=== PATIENT | female | born 1990 | race Caucasian/White ===

== ENCOUNTER 2016-11-15 23:33 | Observation (INO) | payer MEDICAID ==
[~2016-11-15] VITALS: Ht 170.2 cm; Wt 66.0 kg
[~2016-11-15 23:33] MED LIST: MACR100C PO; METO10TA PO; Z.0.NO CURRENT MEDS
[2016-11-15 23:42] VITALS: BP 104/77; PULSE 101; RESP 18; TEMP 98.3; O2SAT 98
[2016-11-16] VITALS (7 sets, daily range): BP systolic 106–120; BP diastolic 61–76; PULSE 79–101; RESP 16–18; TEMP 97.6–98.3; O2SAT 96–99
[2016-11-16] MEDS ORDERED: HYDROmorphone HCL PF 1 MG/ML VIAL IVP ONE (00:45)
[2016-11-16] MEDS ORDERED: ONDANSETRON HCL 4 MG/2 ML VIAL IV ONE ×2 (00:45→01:45)
[2016-11-16] MEDS: SODIUM CHLOR 0.9% 1000 ML INJ 1,000 ML IV SCH ×2 (00:51→01:26)
[2016-11-16] MEDS ORDERED: SODIUM CHLOR 0.9% 1000 ML INJ 1,000 ML IV SCH ×2 (00:58→04:00)
--- NOTE | 2016-11-16 00:58 | PD ---
HPI Chief Complaint: Abdominal Pain Time Seen by Provider: 00:41 Travel History International Travel<30 days: No Contact w/Intl Traveler<30days: No Traveled to known affect area: No History of Present Illness HPI The patient is a 26-year-old female that complains of primarily midline epigastric and some periumbilical pain beginning 48 hours ago. About 24 hours ago she began having diarrhea and vomiting. She denies any fever at home. There's been no blood in the vomitus or stool. She states there is no possibility of . She states her son has developed a similar illness about 3 days ago. She denies any recent foreign travel, well water ingestion, history of bowel problems, recent antibiotics or history of regional enteritis/ ulcer colitis and they family members. She does feel dehydrated. PFSH Past Medical History Diminished Hearing: No Integumentary: Yes (STAPH INFECTION 2003) Seizures: Yes ("ONCE") Tetanus Vaccination: Unknown Influenza Vaccination: No ?: Not LMP: 11/02/16 : 0 Past Surgical History Section: Yes Social History Alcohol Use: Yes (OCCASIONAL) Tobacco Use: Yes (1 PPD) Substance Use: Yes (PT ADMITS TO MARIJUANA) Allergies-Medications (Allergen,Severity, Reaction): Coded Allergies: No Known Allergies (Verified , 11/16/16) Reported Meds & Prescriptions Reported Meds & Active Scripts Active No Active Prescriptions or Reported Medications Review of Systems Except as stated in HPI: all other systems reviewed are Neg Physical Exam Narrative GENERAL: The patient is alert, oriented 3, moderately dehydrated appearing in moderate apparent distress with her nausea/vomiting. The patient's vital signs show heart rate of 101 but are otherwise normal. SKIN: Warm and dry. No skin rash is seen. HEAD: Atraumatic. Normocephalic. EYES: Pupils equal and round. No scleral icterus. No injection or drainage. ENT: No nasal bleeding or discharge. Mucous membranes pink and moist. NECK: Trachea midline. No JVD. CARDIOVASCULAR: Regular rate and rhythm. No murmur appreciated. RESPIRATORY: No accessory muscle use. Clear to auscultation. Breath sounds equal bilaterally. GASTROINTESTINAL: Abdomen soft, with tenderness to direct palpation in the bilateral upper quadrants and periumbilical area, nondistended. Hepatic and splenic margins not palpable. MUSCULOSKELETAL: No obvious deformities. No clubbing. No cyanosis. No edema. NEUROLOGICAL: Awake and alert. No obvious cranial nerve deficits. Motor grossly within normal limits. Normal speech. PSYCHIATRIC: Appropriate mood and affect; insight and judgment normal. Data Data Last Documented VS Vital Signs Date Time Temp Pulse Resp B/P Pulse Ox O2 Delivery O2 Flow Rate FiO2 11/16/16 02:10 85 18 106/62 98 Room Air 11/16/16 00:28 98.3 Orders Sodium Chlor 0.9% 1000 Ml Inj (Ns 1000 M (11/16/16 00:45) Ondansetron Inj (Zofran Inj) (11/16/16 00:45) Hydromorphone Pf Inj (Dilaudid Pf Inj) (11/16/16 00:45) Beta Hcg (Quant/Titer) (11/16/16 00:58) Complete Blood Count With Diff (11/16/16 00:58) Comprehensive Metabolic Panel (11/16/16 00:58) Lipase (11/16/16 00:58) Urinalysis - C+S If Indicated (11/16/16 00:58) Sodium Chlor 0.9% 1000 Ml Inj (Ns 1000 M (11/16/16 00:58) Ondansetron Inj (Zofran Inj) (11/16/16 01:45) Metoclopramide Inj (Reglan Inj) (11/16/16 03:00) Admit Order (Ed Use Only) (11/16/16 03:28) Labs Laboratory Tests Test 11/16/16 00:45 White Blood Count 9.9 TH/MM3 Red Blood Count 5.42 MIL/MM3 Hemoglobin 16.8 GM/DL Hematocrit 51.0 % Mean Corpuscular Volume 94.2 FL Mean Corpuscular Hemoglobin 31.0 PG Mean Corpuscular Hemoglobin 32.9 % Concent Red Cell Distribution Width 13.2 % Platelet Count 209 TH/MM3 Mean Platelet Volume 9.3 FL Neutrophils (%) (Auto) 86.7 % Lymphocytes (%) (Auto) 5.8 % Monocytes (%) (Auto) 5.7 % Eosinophils (%) (Auto) 0.9 % Basophils (%) (Auto) 0.9 % Neutrophils # (Auto) 8.5 TH/MM3 Lymphocytes # (Auto) 0.6 TH/MM3 Monocytes # (Auto) 0.6 TH/MM3 Eosinophils # (Auto) 0.1 TH/MM3 Basophils # (Auto) 0.1 TH/MM3 CBC Comment DIFF FINAL Differential Comment Sodium Level 143 MEQ/L Potassium Level 3.8 MEQ/L Chloride Level 108 MEQ/L Carbon Dioxide Level 26.0 MEQ/L Anion Gap 9 MEQ/L Blood Urea Nitrogen 15 MG/DL Creatinine 1.00 MG/DL Estimat Glomerular Filtration 67 ML/MIN Rate Random Glucose 150 MG/DL Calcium Level 9.8 MG/DL Total Bilirubin 0.9 MG/DL Aspartate Amino Transf 15 U/L (AST/SGOT) Alanine Aminotransferase 24 U/L (ALT/SGPT) Alkaline Phosphatase 64 U/L Total Protein 8.3 GM/DL Albumin 4.6 GM/DL Lipase 1171 U/L Human Chorionic Gonadotropin, LESS THAN 1 Quant MIU/ML MDM Medical Decision Making Medical Screen Exam Complete: Yes Emergency Medical Condition: Yes Medical Record Reviewed: Yes Interpretation(s) The CBC shows a hemoglobin of 16.8 and hematocrit of 51.0 with 87% neutrophils. The CBC is otherwise unremarkable. The complete metabolic profile shows a GFR 67, glucose 150, total protein of 8.3. The beta-hCG is less than 2 and the lipase is 1171. Differential Diagnosis Viral gastroenteritis, pancreatitisviral versus alcohol versus gallstone, dehydration, electrolyte disorder, renal insufficiency Narrative Course The patient has pancreatitis. This could be alcohol versus viral versus medication versus gallstone. She continues to vomit despite 8 mg of Zofran IV and, finally after 10 of Reglan IV, she stopped. After 3 L of IV fluid, the patient still has difficulty making urine. She does have hemoconcentration on the CBC with elevated hemoglobin of 16.8 and hematocrit of 51.0. Plan: The patient will be admitted for IV fluids, IV antiemetics and workup for the pancreatitis. Physician Communication Physician Communication I discussed the patient with Dr. Canas, the patient will be 23 hour observation to her. Diagnosis Primary Impression: Pancreatitis Additional Impression: Moderate dehydration Admitting Information Admitting Physician Requests: Observation Scripts No Active Prescriptions or Reported Meds Reginaldo Osborn MD Nov 16, 2016 00:58
[2016-11-16 01:11] LABS: AUTOMATED NEUTROPHIL # 8.5 TH/MM3 (1.8-7.7); BASOPHIL # 0.1 TH/MM3 (0-0.2); BASOPHIL % 0.9 % (0.0-2.0); EOSINOPHIL # 0.1 TH/MM3 (0-0.4); EOSINOPHIL % 0.9 % (0.0-4.0); HEMO FLAGS DIFF FINAL; LYMPH % 5.8 % (9.0-44.0); LYMPHOCYTE # 0.6 TH/MM3 (1.0-4.8); MEAN CELL VOLUME 94.2 FL (80.0-100.0); MEAN CORPUSCULAR HGB CONC 32.9 % (32.0-36.0); MONO % 5.7 % (0.0-8.0); NEUT % 86.7 % (16.0-70.0); PLATELET COUNT 209 TH/MM3 (150-450); RED BLOOD COUNT 5.42 MIL/MM3 (4.00-5.30); RED CELL DISTRIBUTION WIDTH 13.2 % (11.6-17.2); WHITE BLOOD COUNT 9.9 TH/MM3 (4.0-11.0)
[2016-11-16 01:23] LABS: CHLORIDE 108 MEQ/L (98-107); POTASSIUM 3.8 MEQ/L (3.5-5.1); SODIUM (NA) 143 MEQ/L (136-145)
[2016-11-16 01:27] LABS: ANION GAP 9 MEQ/L (5-15); BLOOD UREA NITROGEN 15 MG/DL (7-18)
[2016-11-16 01:29] LABS: ALT (GPT) 24 U/L (10-53)
[2016-11-16 01:30] LABS: AST (GOT) 15 U/L (15-37); GLOMERULAR FILTRATION RATE 67 ML/MIN (>89)
[2016-11-16 01:31] LABS: TOTAL BILIRUBIN ADULT 0.9 MG/DL (0.2-1.0)
[2016-11-16 01:32] LABS: ALKALINE PHOSPHATASE 64 U/L (45-117)
[2016-11-16 01:35] LABS: BETA HCG QUANT LESS THAN 1 MIU/ML (0-5)
[2016-11-16] MEDS ORDERED: METOCLOPRAMIDE HCL 10 MG/2 ML VIAL IVS ONE (03:00)
[2016-11-16 03:46] LABS: BLOOD, URINE NEG (NEG); GLUCOSE,URINE NEG (NEG); KETONE, URINE TRACE mg/dL (NEG); NITRITE,URINE NEG (NEG); PH, URINE 5.5 (5.0-8.5)
[2016-11-16] MEDS ORDERED: NALOXONE HCL 0.4 MG/ML AMP IV PRN (04:00)
[2016-11-16] MEDS ORDERED: SODIUM CHLORIDE 0.9% FLUSH 5 ML FLUSH FLUSH PRN (04:00)
[2016-11-16] MEDS ORDERED: ONDANSETRON HCL 4 MG/2 ML VIAL IVP PRN (04:00)
[2016-11-16 04:06] LABS: URINE COLOR YELLOW (YELLW/STRAW)
[2016-11-16 04:07] LABS: MUCUS URINE MOD /lpf (OCC); SQUAMOUS EPITHELIAL CELL URINE > 8 /hpf (0-5)
[2016-11-16 04:08] LABS: BACTERIA, URINE OCC /hpf; COMMENT (UR) CULT NOT INDICATED; CULTURE IF INDICATED CULT NOT INDICATED
[2016-11-16] MEDS ORDERED: HYDROmorphone HCL PF 1 MG/ML VIAL IV PUSH PRN (04:15)
[2016-11-16] MEDS ORDERED: METOCLOPRAMIDE HCL 10 MG/2 ML VIAL IV PUSH PRN (09:00)
[2016-11-16] MEDS ORDERED: SODIUM CHLORIDE 0.9% FLUSH 5 ML FLUSH FLUSH SCH (09:00)
--- NOTE | 2016-11-16 10:01 | HHI.HP ---
[facility] No Primary Care Physician Admission Diagnosis pancreatitis Diagnoses: (1) Nausea & vomiting Diagnosis: Principal (2) Gastroenteritis Diagnosis: Principal (3) Elevated lipase Diagnosis: Principal Chief Complaint: Nausea, vomiting, diarrhea Travel History International Travel<30 Days: No Contact w/Intl Traveler <30 Da: No Traveled to Known Affected Are: No History of Present Illness 26-year-old female with no significant chronic medical illnesses who presented to hospital because of a few hours of nausea, vomiting, diarrhea. Patient states that her son had the same symptoms 2 days prior. She thought that she just caught a bug because 2 days later she developed nausea, vomiting, diarrhea. He states that her symptoms started at approximate 8 PM last night and she had intractable nausea vomiting. She was able tolerate liquids and Gatorade. He states that she did develop a generalized abdominal pain. States it is located around her umbilicus and moved up into her epigastric region the more she had nausea vomiting. Patient denies any hematemesis, hematochezia, coffee-ground emesis. She states that she did have watery stools. Patient had workup done emergency department found to have mild dehydration, elevated lipase level. Is recommended by ER physician that patient be observed in the hospital for further evaluation and management. Upon evaluating the patient this morning she is feeling much better. She is tolerating liquids. She is asking if she can go home. Review of Systems Constitutional: DENIES: Diaphoretic episodes, Fatigue, Fever, Weight gain, Weight loss, Chills, Dizziness, Change in appetite, Night Sweats Eyes: DENIES: Blurred vision, Diplopia, Eye inflammation, Eye pain, Vision loss , Double Vision Ears, nose, mouth, throat: DENIES: Vertigo, Nasal discharge, Throat pain, Ear Pain, Running Nose, Sinus Pain Respiratory: DENIES: Apneas, Cough, Snoring, Wheezing, Hemoptysis, Sputum production, Shortness of breath Cardiovascular: DENIES: Chest pain, Palpitations, Syncope, Dyspnea on Exertion , Lower Extremity Edema, Orthopnea Gastrointestinal: COMPLAINS OF: Abdominal pain, Diarrhea, Nausea, DENIES: Black stools, Bloody stools, Constipation, Vomiting, Difficulty Swallowing, Anorexia Neurologic: DENIES: Abnormal gait, Headache, Localized weakness, Paresthesias, Seizures, Speech Problems, Tremor, Poor Balance Psychiatric: COMPLAINS OF: Anxiety, DENIES: Confusion, Mood changes, Depression Past Family Social History Past Medical History Anxiety Past Surgical History Reported Medications Patient indicates that she is supposed be on: Doxycycline for acne Xanax for anxiety Remeron for anxiety Allergies: Coded Allergies: No Known Allergies (Verified , 11/16/16) Family History Reviewed is significant for both sister and mother having glioblastoma Social History Patient does smoke one pack a cigarettes a day, drinks alcohol occasionally. Smokes marijuana weekly. Physical Exam Vital Signs Vital Signs Date Time Temp Pulse Resp B/P Pulse Ox O2 Delivery O2 Flow Rate FiO2 11/16/16 08:00 97.8 82 18 120/70 99 11/16/16 07:30 84 16 119/61 96 Room Air 11/16/16 06:08 80 18 108/64 98 Room Air 11/16/16 03:58 80 18 106/66 98 Room Air 11/16/16 02:10 85 18 106/62 98 Room Air 11/16/16 00:31 18 11/16/16 00:28 98.3 101 18 106/76 98 11/15/16 23:42 98.3 101 18 104/77 98 Room Air Physical Exam GENERAL: Well-developed, well-nourished, in no acute distress. alert and orientated HEENT: Head is normocephalic without any lesions or masses noted. Facial features are symmetric. Eyes: Pupils equal round reactive to light. Extraocular muscles are intact. Conjunctivae were clear. Oropharyngeal: Pharynx without any erythema edema. Tongue is midline without deviation. Buccal mucosa is moist without any masses or lesions NECK: Supple without any masses. Trachea midline no deviation. No JVD, no bruits are appreciated CARDIAC: Regular rhythm, regular rate. S1/S2 are heard. No murmurs gallops or rubs. LUNGS: Clear to auscultation bilaterally. No wheeze, rhonchi or rales. No use of accessory muscles on inspiration or expiration. ABDOMEN: Soft, nontender. Nondistended. Bowel sounds heard in all 4 quadrants. No organomegaly or masses. Negative rebound, negative guarding EXTREMITIES: No edema, pulses are equal bilaterally. No cyanosis or clubbing NEUROLOGY: Mood and affect appear appropriate. Cranial nerves II through XII grossly intact. Muscle strength 5/5 in upper and lower extremities bilaterally. Deep tendon reflexes are 2+ in upper and lower extremities bilaterally. Laboratory Laboratory Tests Test 11/16/16 11/16/16 00:45 03:40 White Blood Count 9.9 Red Blood Count 5.42 Hemoglobin 16.8 Hematocrit 51.0 Mean Corpuscular Volume 94.2 Mean Corpuscular Hemoglobin 31.0 Mean Corpuscular Hemoglobin 32.9 Concent Red Cell Distribution Width 13.2 Platelet Count 209 Mean Platelet Volume 9.3 Neutrophils (%) (Auto) 86.7 Lymphocytes (%) (Auto) 5.8 Monocytes (%) (Auto) 5.7 Eosinophils (%) (Auto) 0.9 Basophils (%) (Auto) 0.9 Neutrophils # (Auto) 8.5 Lymphocytes # (Auto) 0.6 Monocytes # (Auto) 0.6 Eosinophils # (Auto) 0.1 Basophils # (Auto) 0.1 CBC Comment DIFF FINAL Differential Comment Sodium Level 143 Potassium Level 3.8 Chloride Level 108 Carbon Dioxide Level 26.0 Anion Gap 9 Blood Urea Nitrogen 15 Creatinine 1.00 Estimat Glomerular Filtration 67 Rate Random Glucose 150 Calcium Level 9.8 Total Bilirubin 0.9 Aspartate Amino Transf 15 (AST/SGOT) Alanine Aminotransferase 24 (ALT/SGPT) Alkaline Phosphatase 64 Total Protein 8.3 Albumin 4.6 Lipase 1171 Human Chorionic Gonadotropin, LESS THAN 1 Quant Urine Color YELLOW Urine Turbidity CLEAR Urine pH 5.5 Urine Specific High View 1.025 Urine Protein NEG Urine Glucose (UA) NEG Urine Ketones TRACE Urine Occult Blood NEG Urine Nitrite NEG Urine Bilirubin NEG Urine Leukocyte Esterase NEG Urine Squamous Epithelial > 8 Cells Urine Amorphous Sediment SMALL Urine Bacteria OCC Urine Mucus MOD Microscopic Urinalysis Comment CULT NOT INDICATED Result Diagram: 11/16/165 11/16/1644 Assessment and Plan Assessment and Plan Nausea, vomiting, diarrhea with dehydration and elevated lipase Continue IV fluids Monitor lipase level Monitor by mouth intake Check triglyceride level DVT prevention Sequential compression devices Written by Calderon Osborn PA-C, acting as scribe for Dr. Lynch on 11/16/16 at 1055. The documentation accurately reflects the work and decisions performed face-to- face by Dr. Lynch on 11/16/16 at 1055. Discharge disposition Discharge home in stable condition Activity: Ad ángel. Diet: Regular diet Medications per medication reconciliation Follow-up with primary medical doctor in one week Problem Qualifiers (1) Nausea & vomiting: Qualified Code: R11.2 - Nausea and vomiting, intractability of vomiting not specified, unspecified vomiting type Calderon Osborn Nov 16, 2016 10:01
[2016-11-16] MEDS ORDERED: ONDA4TAB7 SL (10:02)
--- NOTE | 2016-11-16 10:03 | HHI.DCPOC ---
Discharge Care Plan Diagnosis: (1) Nausea & vomiting (2) Gastroenteritis (3) Elevated lipase Goals to Promote Your Health * To prevent worsening of your condition and complications * To maintain your health at the optimal level Directions to Meet Your Goals Take your medications as prescribed Follow your dietary instruction Follow activity as directed Keep your appointments as scheduled Take your immunizations and boosters as scheduled If your symptoms worsen call your PCP, if no PCP go to Urgent Care Center or Emergency Room Smoking is Dangerous to Your Health. Avoid second hand smoke Call the 24-hour hour crisis hotline for domestic abuse at Calderon Osborn Nov 16, 2016 10:03
[2016-11-16] MEDS ORDERED: METO5TAB PO (11:07)
[2016-11-16] MEDS ORDERED: HYDR-4107 PO (11:09)
== END 2016-11-16 14:17 | disposition home or self-care (01) ==
LOC: PHED 23:33 → PHEDA 11-16 03:30 → PH3B 11-16 07:40
PROVIDERS: ADMIT Family Medicine; ATTEND Family Medicine
DX: K52.9 Noninfective gastroenteritis and colitis, unspecified (principal); E86.0 Dehydration; R74.8 Abnormal levels of other serum enzymes; R11.2 Nausea with vomiting, unspecified; F17.200 Nicotine dependence, unspecified, uncomplicated
CPT/HCPCS: 80053; 81001; 83690; 84478; 84702; 85025; 96361; 96374; 96375; 96376; 99284; G0378; J1170; J2405; J2765; J7030

== ENCOUNTER 2017-01-12 10:30 | Emergency (ER) | payer MEDICAID ==
[~2017-01-12] VITALS: Ht 170.2 cm; Wt 68.5 kg
[~2017-01-12 10:30] MED LIST changes: +HYDR-4107 PO; -MACR100C PO; -METO10TA PO; +METO5TAB PO; -Z.0.NO CURRENT MEDS
[2017-01-12 10:34] VITALS: BP 122/76; PULSE 67; RESP 18; TEMP 98.2; O2SAT 99
--- NOTE | 2017-01-12 10:51 | PD ---
HPI Chief Complaint: Musculoskeletal Complaint Time Seen by Provider: 10:45 Travel History International Travel<30 days: No Contact w/Intl Traveler<30days: No Traveled to known affect area: No History of Present Illness HPI 26-year-old female with history of sugar with dislocation, presents to the ER today because she states that she was trying to avoid tripping on the dog and fell hitting the posterior part of her right shoulder, thinks that she may have dislocated last night, but tried to lift her arm overhead and thinks it popped back in. However, she is still continuing to have pain and feels a crunching in the right shoulder whenever she tries to lift up her arm. She states that the pain is a 4 out of 10 and makes her nauseous and tearful when she tries to move. She denies any other injuries, head injury, loss of consciousness, or any other issues. Modifying Factors: None Associated Signs & Symptoms: Right shoulder injury Risk Factors: None PFSH Past Medical History Anxiety: Yes Cardiovascular Problems: No Diminished Hearing: No Endocrine: No Genitourinary: No Musculoskeletal: No Neurologic: No Reproductive: No Respiratory: No Integumentary: Yes (STAPH INFECTION 2004) Seizures: Yes ("ONCE") ?: Not LMP: LAST WEEK : 0 Past Surgical History Section: Yes Gynecologic Surgery: Yes (C SECTION ) Oral Surgery: Yes (WISDOM TEETH ) Social History Alcohol Use: Yes (OCCASIONAL) Tobacco Use: Yes (1 PPD) Substance Use: Yes (MARIJUANA ) Allergies-Medications (Allergen,Severity, Reaction): Coded Allergies: No Known Allergies (Verified , 01/12/17) Reported Meds & Prescriptions Reported Meds & Active Scripts Active Review of Systems Except as stated in HPI: all other systems reviewed are Neg Physical Exam Narrative GENERAL: Well-nourished, well-developed young white female patient in no acute distress at rest. She is awake, alert, oriented 3. Wearing a right arm sling. SKIN: Focused skin assessment warm/dry. HEAD: Normocephalic. EYES: No scleral icterus. No injection or drainage. NECK: Supple, trachea midline. CARDIOVASCULAR: Regular rate and rhythm without murmurs, gallops, or rubs. RESPIRATORY: Breath sounds equal bilaterally. No accessory muscle use. GASTROINTESTINAL: Abdomen soft, non-tender, nondistended. MUSCULOSKELETAL: No cyanosis, or edema. BACK: Nontender without obvious deformity. No CVA tenderness. Right upper extremity: She is tender to palpation in the right upper humerus area with no obvious deformities. Tenderness with lifting up the right arm and abducting. Neurovascularly intact below injury. Data Data Last Documented VS Vital Signs Date Time Temp Pulse Resp B/P Pulse Ox O2 Delivery O2 Flow Rate FiO2 01/12/17 10:34 98.2 67 18 122/76 99 Orders Shoulder, Complete (>2vws) (01/12/17 10:45) [facility] Medical Decision Making Medical Screen Exam Complete: Yes Emergency Medical Condition: Yes Medical Record Reviewed: Yes Interpretation(s) Last 24 hours Impressions Shoulder X-Ray 01/12/17 1045 Signed Impressions: Service Date/Time: , January 12, 2017 10:53 - CONCLUSION: Unremarkable examination of the right shoulder except suspected old Hill-Sachs fracture. Singh Polk MD Differential Diagnosis Right shoulder injurydislocations versus fractures versus strain versus rotator cuff injury Narrative Course X-rays did not reveal any signs of acute fractures or dislocations. Patient does have an old Hill-Sachs fracture which could be predisposing her for dislocations. At this point, my plan would be to keep her in the arm sling and have her follow-up with orthopedics. Return for any worsening in pain or new symptoms as needed. The plan has discussed with her and she states understanding. Diagnosis Primary Impression: Right shoulder injury Referrals: Terry Chauhan MD Med/Other Pt SpecificInfo: Prescription(s) given Scripts Tramadol-Acetaminophen 37.5-325 mg Tab1 Tab PO Q4H PRN (PAIN GREATER THAN 6) # 15 TAB Ref 0 Prov:Sindy Linton MD 01/12/17 Ibuprofen (Motrin Ib)200 Mg [id number] Mg PO Q6H #28 TAB Ref 0 Prov:Sindy Linton MD 01/12/17 Disposition: 01 DISCHARGE HOME Condition: Stable Sindy Linton MD Jan 12, 2017 10:51
--- NOTE | 2017-01-12 11:26 | RADHPO ---
EXAM DATE/TIME: 01/12/2017 10:53 [facility] COMPARISON: No previous studies available for comparison. INDICATIONS : Right shoulder pain; fell lastnight. Pain with abduction and previous dislocations. MEDICAL HISTORY : None. SURGICAL HISTORY : None. ENCOUNTER: Initial ACUITY: 1 day PAIN SCORE: 4/10 LOCATION: Right shoulder FINDINGS: Multiple view examination of the right shoulder demonstrates no evidence of acute fracture or disloca tion. Flattening of the posterior-superior humeral head likely old Hill-Sachs fracture. Slight wideni ng of the acromioclavicular joint. The glenohumeral and acromioclavicular joints are maintained. The re is normal range of motion between internal and external rotation. Bony mineralization is normal. CONCLUSION: Unremarkable examination of the right shoulder except suspected old Hill-Sachs fracture. Singh Polk MD on January 12, 2017 at 11:24 Board Certified Radiologist. This report was verified electronically.
[2017-01-12] MEDS ORDERED: TRAM-388 PO (11:40)
[2017-01-12] MEDS ORDERED: MOTR200T4 PO (11:40)
== END 2017-01-12 11:54 | disposition home or self-care (01) ==
LOC: PHED 10:30
DX: F17.210 Nicotine dependence, cigarettes, uncomplicated (principal); F12.10 Cannabis abuse, uncomplicated
CPT/HCPCS: 73030; 99283

== ENCOUNTER 2017-02-05 07:07 | Emergency (ER) | payer MEDICAID ==
[~2017-02-05] VITALS: Ht 172.7 cm; Wt 67.0 kg
[~2017-02-05 07:07] MED LIST changes: -HYDR-4107 PO; -METO5TAB PO; +MOTR200T4 PO; +TRAM-388 PO
[2017-02-05 07:08] VITALS: BP 126/84; PULSE 91; RESP 32; TEMP 97.8; O2SAT 100
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
[2017-02-05] MEDS ORDERED: LORazepam 2 MG/ML VIAL IV ONE (07:30)
[2017-02-05] MEDS ORDERED: SODIUM CHLORIDE 0.9% FLUSH 10 ML FLUSH IVF PRN (07:30)
[2017-02-05 07:33] LABS: AUTOMATED NEUTROPHIL # 2.5 TH/MM3 (1.8-7.7); BASOPHIL % 0.9 % (0.0-2.0); EOSINOPHIL # 0.1 TH/MM3 (0-0.4); EOSINOPHIL % 1.2 % (0.0-4.0); HEMATOCRIT 41.7 % (35.0-46.0); HEMO FLAGS DIFF FINAL; LYMPH % 39.5 % (9.0-44.0); MEAN CELL VOLUME 93.7 FL (80.0-100.0); MEAN CORPUSCULAR HEMOGLOBIN 32.5 PG (27.0-34.0); MEAN CORPUSCULAR HGB CONC 34.7 % (32.0-36.0); MONO % 8.1 % (0.0-8.0); NEUT % 50.3 % (16.0-70.0); PLATELET COUNT 196 TH/MM3 (150-450); RED BLOOD COUNT 4.45 MIL/MM3 (4.00-5.30); RED CELL DISTRIBUTION WIDTH 12.8 % (11.6-17.2)
[2017-02-05 07:36] VITALS: BP 128/84; PULSE 77; RESP 24; O2SAT 98
[2017-02-05 07:40] LABS: CHLORIDE 108 MEQ/L (98-107); POTASSIUM 3.4 MEQ/L (3.5-5.1); SODIUM (NA) 140 MEQ/L (136-145)
[2017-02-05 07:44] LABS: ANION GAP 11 MEQ/L (5-15); BICARBONATE 21.2 MEQ/L (21.0-32.0); BLOOD UREA NITROGEN 14 MG/DL (7-18)
[2017-02-05 07:47] LABS: ALT (GPT) 33 U/L (10-53); AST (GOT) 20 U/L (15-37); GLOMERULAR FILTRATION RATE 71 ML/MIN (>89)
[2017-02-05 07:50] LABS: ALKALINE PHOSPHATASE 61 U/L (45-117)
[2017-02-05 08:21] LABS: BARBITURATES, URINE NEG (NEG); COCAINE, URINE NEG (NEG)
[2017-02-05 08:22] LABS: AMPHETAMINE, URINE POS (NEG)
[2017-02-05] MEDS ORDERED: POTASSIUM CHLORIDE 10 MEQ CONTROLLED RELEASE TAB PO ONE (08:45)
[2017-02-05] MEDS ORDERED: LORazepam 2 MG/ML VIAL IM ONE (08:45)
[2017-02-05 09:40] VITALS: BP 132/74; PULSE 71; RESP 20; TEMP 98.5; O2SAT 98
== END 2017-02-05 09:22 | disposition home or self-care (01) ==
LOC: PHED 07:07 → NEPJ 09:22
DX: F41.9 Anxiety disorder, unspecified (principal); F32.9 Major depressive disorder, single episode, unspecified
CPT/HCPCS: 80053; 84703; 85025; 96372; 96374; 99283; J2060; 80307; 99281

== ENCOUNTER 2017-02-22 22:10 | Emergency (ER) | payer MEDICAID ==
[~2017-02-22] VITALS: Ht 170.2 cm; Wt 68.2 kg
[2017-02-22 22:24] VITALS: BP 113/75; PULSE 67; RESP 18; TEMP 97.6; O2SAT 100
[2017-02-22 23:13] LABS: BLOOD, URINE NEG (NEG); GLUCOSE,URINE NEG (NEG); KETONE, URINE NEG (NEG); NITRITE,URINE NEG (NEG); PH, URINE 5.5 (5.0-8.5)
[2017-02-22 23:22] LABS: BACTERIA, URINE FEW /hpf; RBC, URINE 0-2 /hpf (0-3); URINE COLOR YELLOW (YELLW/STRAW)
[2017-02-22 23:23] LABS: COMMENT (UR) CULT NOT INDICATED; CULTURE IF INDICATED CULT NOT INDICATED
[2017-02-22] MEDS ORDERED: DIFL150T PO (23:35)
--- NOTE | 2017-02-22 23:35 | PD ---
HPI Chief Complaint: Maintenance Clerk Problem/Complaint Time Seen by Provider: 22:40 Travel History International Travel<30 days: No Contact w/Intl Traveler<30days: No Traveled to known affect area: No History of Present Illness HPI Patient is a 26-year-old female who comes in complaining of vaginal discharge and itching. She says it started an hour prior to arrival. She says she thinks she has a yeast infection, but she was looking up online and was nervous it might be something else. She denies any abdominal pain. She denies any dysuria. She denies any nausea or vomiting. PFSH Past Medical History Anxiety: Yes Cardiovascular Problems: No Diminished Hearing: No Endocrine: No Genitourinary: No Implanted Vascular Access Dvce: No Musculoskeletal: No Neurologic: No Reproductive: No Respiratory: No Integumentary: Yes (STAPH INFECTION 2003) Seizures: Yes ("ONCE") Tetanus Vaccination: Unknown Influenza Vaccination: No ?: Not LMP: firs week of January : 0 Past Surgical History Section: Yes Gynecologic Surgery: Yes (C SECTION ) Oral Surgery: Yes (WISDOM TEETH ) Other Surgery: Yes Social History Alcohol Use: Yes (OCCASIONAL) Tobacco Use: Yes (1 ppd) Substance Use: Yes Allergies-Medications (Allergen,Severity, Reaction): Coded Allergies: Phenergan (Verified Allergy, Intermediate, HALUCINATIONS, 02/22/17) Reported Meds & Prescriptions Reported Meds & Active Scripts Active No Active Prescriptions or Reported Medications Review of Systems Except as stated in HPI: all other systems reviewed are Neg General / Constitutional: No: Fever, Chills HENT: No: Headaches, Lightheadedness Cardiovascular: No: Chest Pain or Discomfort Respiratory: No: Shortness of Breath Gastrointestinal: No: Nausea, Vomiting, Abdominal Pain Genitourinary: Positive: Discharge, No: Dysuria Skin: No Rash, No Change in Pigmentation Neurologic: No: Weakness, Dizziness Physical Exam Narrative GENERAL: Awake and alert, in no acute distress. SKIN: Focused skin assessment warm/dry. HEAD: Atraumatic. Normocephalic. EYES: Pupils equal and round. No scleral icterus. ENT: Mucous membranes pink and moist. NECK: Trachea midline. No JVD. CARDIOVASCULAR: Regular rate and rhythm. No murmur appreciated. RESPIRATORY: No accessory muscle use. Clear to auscultation. Breath sounds equal bilaterally. GASTROINTESTINAL: Abdomen soft, non-tender, nondistended. : Performed in the presence of a female nurse. Thick white discharge. No cervical lesions. No CMT. MUSCULOSKELETAL: No obvious deformities. No clubbing. No cyanosis. No edema. NEUROLOGICAL: Awake and alert. No obvious cranial nerve deficits. Motor grossly within normal limits. Normal speech. PSYCHIATRIC: Appropriate mood and affect; insight and judgment normal. Data Data Last Documented VS Vital Signs Date Time Temp Pulse Resp B/P Pulse Ox O2 Delivery O2 Flow Rate FiO2 02/22/17 22:24 97.6 67 18 113/75 100 Orders Urinalysis - C+S If Indicated (02/22/17 22:46) Ed Urine Pregnancytest Poc (02/22/17 22:46) Wet Prep Profile (02/22/17 22:46) Gc And Chlamydia Pcr (02/22/17 22:46) Labs Laboratory Tests Test 02/22/17 22:58 Urine Color YELLOW Urine Turbidity SLIGHT Urine pH 5.5 Urine Specific [place] 1.021 Urine Protein NEG mg/dL Urine Glucose (UA) NEG mg/dL Urine Ketones NEG mg/dL Urine Occult Blood NEG Urine Nitrite NEG Urine Bilirubin NEG Urine Leukocyte Esterase NEG Urine RBC 0-2 /hpf Urine WBC 3-5 /hpf Urine Squamous Epithelial 6-8 /hpf Cells Urine Bacteria FEW /hpf Urine Yeast (Budding) MOD Microscopic Urinalysis Comment CULT NOT INDICATED Clue Cells (Wet Prep) NONE SEEN Vaginal Trichomonas (Wet Prep) NONE SEEN Vaginal Yeast (Wet Prep) PRESENT MDM Medical Decision Making Medical Screen Exam Complete: Yes Emergency Medical Condition: Yes Medical Record Reviewed: Yes Differential Diagnosis BV versus yeast vaginitis versus GC/chlamydia versus UTI Narrative Course Patient is a 26-year-old female comes in complaining of white vaginal discharge and itching. Exam shows a sick white discharge. Wet prep sent is positive for yeast. GC and chlamydia swab sent. Patient states her partner does not have any symptoms. Given a prescription for Diflucan. Advised follow-up with PRODUCT PROMOTER SALES PERSON. Advised to return to the ED as needed for any worsening symptoms. Diagnosis Primary Impression: Yeast vaginitis Patient Instructions: General Instructions, Vulvovaginal Candidiasis (ED) Additional Instructions: Follow up with oxygen plant operator. Return to the ED as needed for any worsening symptoms. Scripts Fluconazole (Diflucan)150 Mg Pqi350 Mg PO ONCE #1 TAB Ref 0 Prov:Gershen,Emma B MD 02/22/17 Disposition: 01 DISCHARGE HOME Condition: Stable Emma Neri MD February 22, 2017 23:35
[2017-02-22 23:54] VITALS: BP 122/71
[2017-02-23 02:21] LABS: CHLAMYDIA PCR NOT DETECTED (NOT DETECT); NEISSERIA PCR NOT DETECTED (NOT DETECT)
== END 2017-02-22 23:59 | disposition home or self-care (01) ==
LOC: PHED 22:10
DX: B37.3 Candidiasis of vulva and vagina (principal); F41.9 Anxiety disorder, unspecified; F17.200 Nicotine dependence, unspecified, uncomplicated
CPT/HCPCS: 81001; 84703; 87210; 87491; 87591; 99283

== ENCOUNTER 2017-05-21 16:46 | Emergency (ER) | payer MEDICAID ==
[~2017-05-21] VITALS: Ht 170.2 cm; Wt 68.0 kg
[~2017-05-21 16:46] MED LIST changes: +DIFL150T PO; -MOTR200T4 PO; -TRAM-388 PO
[2017-05-21 16:58] VITALS: BP 121/78; PULSE 103; RESP 16; TEMP 98.4; O2SAT 100
[2017-05-21] MEDS ORDERED: CLIN1CAP6 PO (22:33)
[2017-05-21] MEDS ORDERED: IBUP800T23 PO (23:09)
== END 2017-05-21 19:43 | disposition left against medical advice (07) ==
LOC: PHED 16:46
DX: L02.413 Cutaneous abscess of right upper limb (principal); Z53.21 Procedure and treatment not carried out due to patient leaving prior to being seen by health care provider
CPT/HCPCS: 99281

== ENCOUNTER 2017-05-21 21:34 | Emergency (ER) | payer MEDICAID ==
[~2017-05-21] VITALS: Ht 170.2 cm; Wt 68.0 kg
[2017-05-21 21:53] VITALS: BP 123/79; PULSE 95; RESP 16; TEMP 98.4; O2SAT 100
[2017-05-21] MEDS ORDERED: CLIN1CAP6 PO (22:33)
--- NOTE | 2017-05-21 22:33 | PD ---
HPI Chief Complaint: Skin Problem Time Seen by Provider: 22:03 Travel History International Travel<30 days: No Contact w/Intl Traveler<30days: No Traveled to known affect area: No History of Present Illness HPI 26-year-old female percents emergency department for evaluation of abscess in her right forearm 2 days. Patient reports she injected heroin and Dilaudid into the right antecubital fossa 3 days ago. She reports 2 days ago the area became tender and began to swell. She denies fever or chills. She reports pain at the site of the injection. She denies any possibility of a retained foreign body or broken needle. PFSH Past Medical History Anxiety: Yes Cardiovascular Problems: No Diminished Hearing: No Endocrine: No Genitourinary: No Implanted Vascular Access Dvce: No Musculoskeletal: No Neurologic: No Reproductive: No Respiratory: No Integumentary: Yes (STAPH INFECTION 2004) Immunizations Current: Yes Seizures: Yes ("ONCE") Tetanus Vaccination: < 5 Years Influenza Vaccination: Yes ?: Not LMP: 1 MONTH TEST NEG 2 DAYS AGO : 0 Past Surgical History Section: Yes Gynecologic Surgery: Yes (C SECTION ) Oral Surgery: Yes (WISDOM TEETH ) Other Surgery: Yes Social History Alcohol Use: Yes (OCCASIONAL) Tobacco Use: Yes (1 ppd) Substance Use: Yes (IV DILAUDID) Allergies-Medications (Allergen,Severity, Reaction): Coded Allergies: promethazine (Unverified Allergy, Intermediate, HALUCINATIONS, 05/21/17) Reported Meds & Prescriptions Reported Meds & Active Scripts Active Clindamycin (Clindamycin HCl) 300 Mg Cap 300 Mg PO Q6H Review of Systems Except as stated in HPI: all other systems reviewed are Neg General / Constitutional: No: Fever Eyes: No: Visual changes HENT: No: Headaches Cardiovascular: No: Chest Pain or Discomfort Respiratory: No: Shortness of Breath Gastrointestinal: No: Abdominal Pain Genitourinary: No: Dysuria Physical Exam Narrative GENERAL: Well-nourished, well-developed patient. SKIN: Focused skin assessment warm/dry. HEAD: Normocephalic. EYES: No scleral icterus. No injection or drainage. NECK: Supple, trachea midline. No JVD or lymphadenopathy. CARDIOVASCULAR: Regular rate and rhythm without murmurs, gallops, or rubs. RESPIRATORY: Breath sounds equal bilaterally. No accessory muscle use. GASTROINTESTINAL: Abdomen soft, non-tender, nondistended. MUSCULOSKELETAL: No cyanosis, or edema. Right upper extremity: 4 x 4 cm area of induration in the right antecubital fossa with erythema. The area is nonfluctuant. There is no lymphangitis. BACK: Nontender without obvious deformity. No CVA tenderness. Data Data Last Documented VS Vital Signs Date Time Temp Pulse Resp B/P (MAP) Pulse Ox O2 Delivery O2 Flow Rate FiO2 05/21/17 22:03 (94) 05/21/17 21:53 98.4 95 16 100 MDM Medical Decision Making Medical Screen Exam Complete: Yes Emergency Medical Condition: Yes Differential Diagnosis Abscess, cellulitis, lymphangitis Narrative Course 26 -year-old female here for evaluation of abscess the right before meals 2 days. Patient reports she injected IV heroin and Dilaudid into the area 3 days. She denies fever or chills, chest pain, shortness of breath.. She reports she does not routinely use IV drugs this was experimental. On exam the patient has a 4 x 4 centimeter area of induration in the right antecubital fossa there is no fluctuance. SOFT TISSUE ULTRASOUND: no fluid collection Is instructed take the antibiotics. Apply warm compresses. Return for follow- up in 1-2 days. Patient verbalizes understanding and agrees to plan Diagnosis Primary Impression: Abscess Referrals: Primary Care Physician Additional Instructions: Take antibiotics as prescribed. The area needs to be rechecked in 1-2 days. Return to emergency department if he developed new or worsening symptoms such as high fever, increasing pain, increasing swelling or redness Scripts Clindamycin (Clindamycin) 300 Mg Cap 300 MG PO Q6H for Infection, #40 CAP 0 Refills Prov: Marcelle Schrader 05/21/17 Disposition: DISCHARGE HOME Condition: Stable Marcelle Schrader May 21, 2017 22:33
[2017-05-21] MEDS ORDERED: KETOROLAC TROMETHAMINE 60 MG/2 ML (IM) VIAL IM ONE (22:45)
[2017-05-21] MEDS ORDERED: IBUP800T23 PO (23:09)
== END 2017-05-21 23:11 | disposition home or self-care (01) ==
LOC: PHED 21:34 → PHEFT 23:11
DX: L02.413 Cutaneous abscess of right upper limb (principal)
CPT/HCPCS: 96372; 99284; J1885

== ENCOUNTER 2017-05-25 12:23 | Inpatient (IN) | payer MEDICAID ==
[~2017-05-25] VITALS: Ht 170.2 cm; Wt 67.6 kg
[~2017-05-25 12:23] MED LIST changes: +CLIN1CAP6 PO; -DIFL150T PO; +IBUP800T23 PO
[2017-05-25 13:30] VITALS: BP 120/67; PULSE 101; RESP 16; TEMP 98.4; O2SAT 99
[2017-05-25] MEDS ORDERED: VANCOMYCIN INJ 1,000 MG in SODIUM CHLOR 0.9% 250 ML INJ 250 ML IV ONE (13:45)
--- NOTE | 2017-05-25 14:01 | PD ---
HPI Chief Complaint: Skin Problem Time Seen by Provider: 13:40 Travel History International Travel<30 days: No Contact w/Intl Traveler<30days: No Traveled to known affect area: No History of Present Illness HPI This patient was seen here 4 days ago for right arm infection. She is an IV drug abuser and has an injection site miss infection in her right antecubital fossa. She was prescribed some clindamycin but her compliance is unknown. She looks like she is under the influence of substances right now. She is drowsy and lethargic. Denies fever. No active drainage. Symptoms severity is moderate. PFSH Past Medical History Anxiety: Yes Cardiovascular Problems: No Diminished Hearing: No Endocrine: No Genitourinary: No Implanted Vascular Access Dvce: No Musculoskeletal: No Neurologic: No Reproductive: No Respiratory: No Integumentary: Yes (STAPH INFECTION 2003) Immunizations Current: Yes Seizures: Yes ("ONCE") ?: Not LMP: now : 0 Past Surgical History Section: Yes Gynecologic Surgery: Yes (C SECTION ) Oral Surgery: Yes (WISDOM TEETH ) Other Surgery: Yes Social History Alcohol Use: Yes (OCCASIONAL) Tobacco Use: Yes (1 ppd) Substance Use: Yes (IV DILAUDID) Allergies-Medications (Allergen,Severity, Reaction): Coded Allergies: promethazine (Unverified Allergy, Intermediate, HALUCINATIONS, 05/25/17) Reported Meds & Prescriptions Reported Meds & Active Scripts Active Ibuprofen 800 Mg Tab 800 Mg PO Q8H PRN Clindamycin (Clindamycin HCl) 300 Mg Cap 300 Mg PO Q6H Review of Systems General / Constitutional: No: Fever Eyes: No: Visual changes HENT: No: Headaches Cardiovascular: No: Chest Pain or Discomfort Respiratory: No: Shortness of Breath Gastrointestinal: No: Abdominal Pain Genitourinary: No: Dysuria Musculoskeletal: Positive: Pain Skin: No Rash Neurologic: No: Weakness Psychiatric: Positive: Substance Abuse, No: Depression Endocrine: No: Polydipsia Hematologic/Lymphatic: No: Easy Bruising Physical Exam Narrative GENERAL: Well-nourished, well-developed patient in no apparent distress. SKIN: Focused skin assessment reveals no rash and nodules. Skin is Warm and dry. HEAD: Atraumatic. Normocephalic. EYES: Pupils equal and round. No scleral icterus. No injection or drainage. ENT: No nasal bleeding or discharge. Mucous membranes pink and moist. NECK: Trachea midline. No JVD. CARDIOVASCULAR: Regular rate and rhythm. No murmur appreciated. RESPIRATORY: No accessory muscle use. Clear to auscultation. Breath sounds equal bilaterally. GASTROINTESTINAL: Abdomen soft, non-tender, nondistended. Hepatic and splenic margins not palpable. MUSCULOSKELETAL: Patient has a 4 cm x 4 cm area of erythema and induration on the right antecubital fossa. It's not fluctuant or draining. There is macular erythema of the forearm. No cyanosis. No edema. NEUROLOGICAL: Awake but lethargic. No obvious cranial nerve deficits. Motor grossly within normal limits. Normal speech. PSYCHIATRIC: Drowsy but cooperative mood and affect; insight and judgment poor. Data Data Last Documented VS Vital Signs Date Time Temp Pulse Resp B/P (MAP) Pulse Ox O2 Delivery O2 Flow Rate FiO2 05/25/17 13:38 16 05/25/17 13:30 98.4 101 120/67 (84) 99 Orders Orders Iv Access Insert/Monitor (05/25/17 13:40) Complete Blood Count With Diff (05/25/17 13:40) Comprehensive Metabolic Panel (05/25/17 13:40) Prothrombin Time / Inr (Pt) (05/25/17 13:40) Act Partial Throm Time (Ptt) (05/25/17 13:40) Vancomycin Inj (Vancomycin Inj) (05/25/17 13:45) Us Arm Soft Tissue (05/25/17 ) Blood Culture (05/25/17 14:01) Admit Order (Ed Use Only) (05/25/17 14:27) Labs Laboratory Tests Test 05/25/17 13:55 White Blood Count 5.4 TH/MM3 Red Blood Count 3.48 MIL/MM3 Hemoglobin 11.3 GM/DL Hematocrit 33.4 % Mean Corpuscular Volume 96.0 FL Mean Corpuscular Hemoglobin 32.4 PG Mean Corpuscular Hemoglobin Concent 33.7 % Red Cell Distribution Width 13.5 % Platelet Count 178 TH/MM3 Mean Platelet Volume 6.8 FL Neutrophils (%) (Auto) 33.0 % Lymphocytes (%) (Auto) 34.9 % Monocytes (%) (Auto) 8.5 % Eosinophils (%) (Auto) 23.3 % Basophils (%) (Auto) 0.3 % Neutrophils # (Auto) 1.8 TH/MM3 Lymphocytes # (Auto) 1.8 TH/MM3 Monocytes # (Auto) 0.5 TH/MM3 Eosinophils # (Auto) 1.3 TH/MM3 Basophils # (Auto) 0.0 TH/MM3 CBC Comment DIFF FINAL Differential Comment Prothrombin Time 10.7 SEC Prothromb Time International Ratio 1.0 RATIO Activated Partial Thromboplast Time 27.5 SEC Blood Urea Nitrogen 17 MG/DL Creatinine 0.74 MG/DL Random Glucose 82 MG/DL Total Protein 6.8 GM/DL Albumin 3.2 GM/DL Calcium Level 8.4 MG/DL Alkaline Phosphatase 101 U/L Aspartate Amino Transf (AST/SGOT) 47 U/L Alanine Aminotransferase (ALT/SGPT) 73 U/L Total Bilirubin 0.3 MG/DL Sodium Level 140 MEQ/L Potassium Level 3.9 MEQ/L Chloride Level 108 MEQ/L Carbon Dioxide Level 24.9 MEQ/L Anion Gap 7 MEQ/L Estimat Glomerular Filtration Rate 94 ML/MIN MDM Medical Decision Making Medical Screen Exam Complete: Yes Emergency Medical Condition: Yes Medical Record Reviewed: Yes Differential Diagnosis Cellulitis, abscess, MRSA Narrative Course I have reviewed the patient's electronic medical record. Patient was seen here 4 days ago for the same thing. I reviewed that record ER physicians a bedside ultrasound that did not show any fluid collection I discussed with ERNST Ibanez who also saw this patient 4 days ago. She reports that the macular erythema on the forearm is all new I placed a right sided external jugular IV 2 blood culture sets obtained CBC shows white count of 5.4 Metabolic profile is normal LFTs have minimal elevation, nonspecific Coagulation studies are normal I gave her 1 g IV vancomycin Patient has progression of her infection despite 4 days of clindamycin. She does report compliance. Patient will require IV antibiotics for failure of medical treatment with worsening right arm infection caused by IV drug injection site miss. I've ordered a formal ultrasound of the right arm to evaluate for drainable fluid collection I discussed with Dr. Narvaez who will admit Diagnosis Primary Impression: Right arm cellulitis Additional Impressions: Failure of outpatient treatment IV drug abuse Admitting Information Admitting Physician Requests: Calderon Smith MD May 25, 2017 14:01
[2017-05-25 14:06] LABS: AUTOMATED NEUTROPHIL # 1.8 TH/MM3 (1.8-7.7); BASOPHIL % 0.3 % (0.0-2.0); EOSINOPHIL # 1.3 TH/MM3 (0-0.4); EOSINOPHIL % 23.3 % (0.0-4.0); HEMATOCRIT 33.4 % (35.0-46.0); HEMO FLAGS DIFF FINAL; LYMPH % 34.9 % (9.0-44.0); LYMPHOCYTE # 1.8 TH/MM3 (1.0-4.8); MEAN CORPUSCULAR HEMOGLOBIN 32.4 PG (27.0-34.0); MEAN CORPUSCULAR HGB CONC 33.7 % (32.0-36.0); MONO % 8.5 % (0.0-8.0); PLATELET COUNT 178 TH/MM3 (150-450); RED BLOOD COUNT 3.48 MIL/MM3 (4.00-5.30); RED CELL DISTRIBUTION WIDTH 13.5 % (11.6-17.2); WHITE BLOOD COUNT 5.4 TH/MM3 (4.0-11.0)
[2017-05-25 14:22] LABS: CHLORIDE 108 MEQ/L (98-107); POTASSIUM 3.9 MEQ/L (3.5-5.1); SODIUM (NA) 140 MEQ/L (136-145)
[2017-05-25 14:25] LABS: ANION GAP 7 MEQ/L (5-15); BICARBONATE 24.9 MEQ/L (21.0-32.0); BLOOD UREA NITROGEN 17 MG/DL (7-18)
[2017-05-25 14:26] LABS: APTT (PATIENT) 27.5 SEC (24.3-30.1); PROTHROMBIN TIME - PATIENT 10.7 SEC (9.8-11.6)
[2017-05-25 14:28] LABS: ALT (GPT) 73 U/L (10-53); AST (GOT) 47 U/L (15-37)
[2017-05-25 14:29] LABS: GLOMERULAR FILTRATION RATE 94 ML/MIN (>89)
[2017-05-25 14:30] LABS: TOTAL BILIRUBIN ADULT 0.3 MG/DL (0.2-1.0)
[2017-05-25 14:31] LABS: ALKALINE PHOSPHATASE 101 U/L (45-117)
[2017-05-25 14:42] VITALS: BP 114/70; PULSE 93; RESP 18; O2SAT 100
[2017-05-25] MEDS ORDERED: SODIUM CHLORIDE 0.9% FLUSH 10 ML FLUSH IV FLUSH PRN (14:45)
[2017-05-25] MEDS ORDERED: NALOXONE HCL 0.4 MG/ML AMP IV PRN (14:45)
[2017-05-25] MEDS ORDERED: BISACODYL 10 MG SUPP RECTAL PRN (14:45)
[2017-05-25] MEDS ORDERED: ONDANSETRON HCL 4 MG/2 ML VIAL IVP PRN (14:45)
[2017-05-25] MEDS ORDERED: SENNOSIDES 8.6 MG TAB PO PRN (14:45)
[2017-05-25] MEDS ORDERED: LACTULOSE SYRUP 20 GM/30 ML CUP PO PRN (14:45)
[2017-05-25] MEDS ORDERED: Vancomycin Consult Pharmacy 1 EA OTHER SCH (14:45)
[2017-05-25] MEDS ORDERED: MAGNESIUM HYDROXIDE SUSP 30 ML CUP PO PRN (14:45)
[2017-05-25 15:04] LABS: BETA HCG QUANT LESS THAN 1 MIU/ML (0-5)
[2017-05-25 15:22] VITALS: BP 114/78; PULSE 83; RESP 19; TEMP 97.7; O2SAT 100
--- NOTE | 2017-05-25 15:56 | RADRPT ---
EXAM DATE/TIME: 05/25/2017 14:27 [facility] COMPARISON: No previous studies available for comparison. INDICATIONS : Abscess, redness and swelling in right antecubital fossa. MEDICAL HISTORY : IV substance use. SURGICAL HISTORY : section. [place] teeth removal. ENCOUNTER: Initial ACUITY: 2 weeks PAIN SCORE: 2/10 LOCATION: Right arm. AREA EVALUATED: Right ACF FINDINGS: MASSES: None. FLUID COLLECTIONS: There is a 4.1 x 2.1 x 3.9 cm complex collection with regional hyperemia in the right antecubital fos sa and corresponding to injection sites. OTHER: Negative. CONCLUSION: 1. Findings consistent with 4.1 x 2.1 x 3.9 cm abscess in the right antecubital fossa. Melchor Landaverde MD on May 25, 2017 at 15:50 Board Certified Radiologist. This report was verified electronically.
[2017-05-25] MEDS ORDERED: SODIUM CHLORIDE 0.65% NASAL SPRAY 45 ML BTL EACH NARE PRN (17:30)
[2017-05-25] MEDS: LORazepam 2 MG/ML VIAL IV PUSH PRN ×2 (18:05→22:23)
--- NOTE | 2017-05-25 18:27 | HHI.HP ---
HPI Service [facility] Primary Care Physician No Primary Care Physician Admission Diagnosis R arm cellulitis, failure of outpt RX, IVDA Diagnoses: Travel History International Travel<30 Days: No Contact w/Intl Traveler <30 Da: No Traveled to Known Affected Are: No History of Present Illness 26-year-old female with a history of IV drug use, who presents with a 7 day history of constant sharp pain in the right antecubital fossa, with several day history of worsening chills. Patient came into the ER on 05/21, however there is no abscess noted at that time. Patient was prescribed clindamycin, which she says she has been taking. Patient says she has been very distraught over custody of her son, and because of this has been the past 2 weeks, on and off, in a drug house receiving many different types of illicit drugs. Patient denies any measured fevers. Denies any nausea or vomiting. She says she is very distraught over custody of her son. She denies wanting to harm herself. Review of Systems Except as stated in HPI: all other systems reviewed are Neg Past Family Social History Past Medical History History of IV drug use Pancreatitis History of staph infection, however denies MRSA Past Surgical History [place] teeth Reported Medications patient was taking clindamycin as prescribed and ibuprofenas needed for pain. Allergies: Coded Allergies: promethazine (Unverified Allergy, Intermediate, HALUCINATIONS, 05/25/17) Family History Mother from glioblastoma. Sister from glioblastoma in her 30s. Father is healthy. Social History Patient smoked one pack per day for the past 10 years. Patient says she has quit drinking for the past several months. Physical Exam Vital Signs Vital Signs Date Time Temp Pulse Resp B/P (MAP) Pulse Ox O2 Delivery O2 Flow Rate FiO2 05/25/17 15:22 97.7 83 19 114/78 (90) 100 05/25/17 15:00 05/25/17 14:42 93 18 114/70 (85) 100 Room Air 05/25/17 13:38 16 05/25/17 13:30 98.4 101 16 120/67 (84) 99 Physical Exam GENERAL: This is a well-nourished, well-developed patient,who appears in no acute physical distress, however is very anxious. SKIN: No rashes, ecchymoses.. Cool and dry.patient does have a large abscess over the right antecubital space. roughly. 4 by 5 cm with minimal surrounding erythema. HEAD: Atraumatic. Normocephalic. No temporal or scalp tenderness. EYES: Pupils equal round and reactive. Extraocular motions intact. No scleral icterus. No injection or drainage. ENT: Nose without bleeding, purulent drainage or septal hematoma. Throat without erythema, tonsillar hypertrophy or exudate. Uvula midline. Airway patent. NECK: Trachea midline. No JVD or lymphadenopathy. Supple, nontender, no meningeal signs. CARDIOVASCULAR: Regular rate and rhythm without murmurs, gallops, or rubs. RESPIRATORY: Clear to auscultation. Breath sounds equal bilaterally. No wheezes , rales, or rhonchi. GASTROINTESTINAL: Abdomen soft, non-tender, nondistended. No hepato-splenomegaly , or palpable masses. No guarding. MUSCULOSKELETAL: Extremities without clubbing, cyanosis, or edema. No joint tenderness, effusion, or edema noted. No calf tenderness. Negative Homans sign bilaterally. NEUROLOGICAL: Awake and alert. Cranial nerves II through XII intact. Motor and sensory grossly within normal limits. Five out of 5 muscle strength in all muscle groups. Normal speech. Laboratory Laboratory Tests Test 05/25/17 13:55 White Blood Count 5.4 Red Blood Count 3.48 Hemoglobin 11.3 Hematocrit 33.4 Mean Corpuscular Volume 96.0 Mean Corpuscular Hemoglobin 32.4 Mean Corpuscular Hemoglobin Concent 33.7 Red Cell Distribution Width 13.5 Platelet Count 178 Mean Platelet Volume 6.8 Neutrophils (%) (Auto) 33.0 Lymphocytes (%) (Auto) 34.9 Monocytes (%) (Auto) 8.5 Eosinophils (%) (Auto) 23.3 Basophils (%) (Auto) 0.3 Neutrophils # (Auto) 1.8 Lymphocytes # (Auto) 1.8 Monocytes # (Auto) 0.5 Eosinophils # (Auto) 1.3 Basophils # (Auto) 0.0 CBC Comment DIFF FINAL Differential Comment Prothrombin Time 10.7 Prothromb Time International Ratio 1.0 Activated Partial Thromboplast Time 27.5 Blood Urea Nitrogen 17 Creatinine 0.74 Random Glucose 82 Total Protein 6.8 Albumin 3.2 Calcium Level 8.4 Alkaline Phosphatase 101 Aspartate Amino Transf (AST/SGOT) 47 Alanine Aminotransferase (ALT/SGPT) 73 Total Bilirubin 0.3 Sodium Level 140 Potassium Level 3.9 Chloride Level 108 Carbon Dioxide Level 24.9 Anion Gap 7 Estimat Glomerular Filtration Rate 94 Human Chorionic Gonadotropin, Quant LESS THAN 1 Date/Time Source Procedure Growth Status 05/25/17 13:55 Blood Peripheral Aerobic Blood Culture Pending Received 05/25/17 13:55 Blood Peripheral Anaerobic Blood Culture Pending Received Result Diagram: 05/25/17 1355 05/25/17 1355 Imaging Last Impressions Upper Extremity Ultrasound 05/25/17 0000 Signed Impressions: Service Date/Time: May 14:27 - CONCLUSION: 1. Findings consistent with 4.1 x 2.1 x 3.9 cm abscess in the right antecubital fossa. MD Michaela Ochoa VTE Risk Assessment Caprini VTE Risk Assessment: Mod/High Risk (score >= 2) Caprini Risk Assessment Model Point Value = 1 Point Value = 2 Point Value = 3 Point Value = 5 Age 41-60 Minor surgery BMI > 25 kg/m2 Swollen legs Varicose veins or History of unexplained or recurrent spontaneous Oral contraceptives or hormone replacement Sepsis (< 1 month) Serious lung disease, including pneumonia (< 1 month) Abnormal pulmonary function Acute myocardial infarction Congestive heart failure (< 1 month) History of inflammatory bowel disease Medical patient at bed rest Age 61-74 Arthroscopic surgery Major open surgery (> 45 min) Laparoscopic surgery (> 45 min) Malignancy Confined to bed (> 72 hours) Immobilizing plaster cast Central venous access Age >= 75 History of VTE Family history of VTE Factor V Leiden Prothrombin [id number] Lupus anticoagulant Anticardiolipin antibodies Elevated serum homocysteine Heparin-induced thrombocytopenia Other congenital or acquired thrombophilia Stroke (< 1 month) Elective arthroplasty Hip, pelvis, or leg fracture Acute spinal cord injury (< 1 month) Prophylaxis Regimen Total Risk Factor Score Risk Level Prophylaxis Regimen 0-1 Low Early ambulation 2 Moderate Order ONE of the following: *Sequential Compression Device (SCD) *Heparin 5000 units SQ BID 3-4 Higher Order ONE of the following medications: *Heparin 5000 units SQ TID *Enoxaparin/Lovenox 40 mg SQ daily (WT < 150 kg, CrCl > 30 mL/min) *Enoxaparin/Lovenox 30 mg SQ daily (WT < 150 kg, CrCl > 10-29 mL/min) *Enoxaparin/Lovenox 30 mg SQ BID (WT < 150 kg, CrCl > 30 mL/min) AND/OR *Sequential Compression Device (SCD) 5 or more Highest Order ONE of the following medications: *Heparin 5000 units SQ TID (Preferred with Epidurals) *Enoxaparin/Lovenox 40 mg SQ daily (WT < 150 kg, CrCl > 30 mL/min) *Enoxaparin/Lovenox 30 mg SQ daily (WT < 150 kg, CrCl > 10-29 mL/min) *Enoxaparin/Lovenox 30 mg SQ BID (WT < 150 kg, CrCl > 30 mL/min) AND *Sequential Compression Device (SCD) Assessment and Plan Assessment and Plan //Right-sided antecubital fossa abscess -Failed outpatient treatment. Reviewed ultrasound which shows abscess as above. -Patient received vancomycin in the ER With tachycardia. Eosinophilia -We'll consult orthopedics for drainage of antecubital fossa abscess. We'll need cultures. -Continue vancomycin. //Transaminitis. -Due to IV drug use, will order hepatitis profile. Patient has no pain, thus we 'll not order ultrasound at this time. //Anxiety. Patient very anxious. Ativan when necessary. //IV drug abuse. -Drug screen pending. -We'll provide cessation counseling when patient is less distraught. //Tobacco abuse. Will discuss when patient is receptive. //Prophylaxis. Patient is ambulatory. Discussed Condition With patient, nurse, ED physician. Physician Certification 2 Midnight Certification Type: Admission for Inpatient Services Order for Inpatient Services The services are ordered in accordance with Medicare regulations or non- Medicare payer requirements, as applicable. In the case of services not specified as inpatient-only, they are appropriately provided as inpatient services in accordance with the 2-midnight benchmark. Estimated LOS (days): 2 days is the estimated time the patient will need to remain in the hospital, assuming treatment plan goals are met and no additional complications. Post-Hospital Plan: Not yet determined Ambrocio Narvaez MD May 25, 2017 18:27
[2017-05-25 20:00] VITALS: BP 118/81; PULSE 100; RESP 16; TEMP 97.3; O2SAT 99
[2017-05-25] MEDS: SODIUM CHLORIDE 0.9% FLUSH 10 ML FLUSH IV FLUSH SCH (22:27)
[2017-05-25] MEDS ORDERED: IBUPROFEN 400 MG TAB PO PRN (23:30)
[2017-05-26] VITALS: BP 108/82; PULSE 101; RESP 16; TEMP 96.7; O2SAT 100
[2017-05-26] MEDS: VANCOMYCIN INJ 1,250 MG in SODIUM CHLOR 0.9% 250 ML INJ 250 ML IV SCH ×2 (00:21→12:26)
[2017-05-26] MEDS: LORazepam 2 MG/ML VIAL IV PUSH PRN (06:50)
[2017-05-26 08:14] VITALS: BP 127/87; PULSE 77; RESP 19; TEMP 97.7; O2SAT 100
[2017-05-26] MEDS: SODIUM CHLORIDE 0.9% FLUSH 10 ML FLUSH IV FLUSH SCH (08:22)
[2017-05-26 08:39] LABS: AUTOMATED NEUTROPHIL # 2.7 TH/MM3 (1.8-7.7); BASOPHIL % 0.7 % (0.0-2.0); EOSINOPHIL # 0.7 TH/MM3 (0-0.4); EOSINOPHIL % 13.1 % (0.0-4.0); HEMATOCRIT 35.8 % (35.0-46.0); HEMO FLAGS DIFF FINAL; LYMPH % 27.7 % (9.0-44.0); LYMPHOCYTE # 1.5 TH/MM3 (1.0-4.8); MEAN CELL VOLUME 97.5 FL (80.0-100.0); MEAN CORPUSCULAR HEMOGLOBIN 32.4 PG (27.0-34.0); MEAN CORPUSCULAR HGB CONC 33.2 % (32.0-36.0); MONO % 7.2 % (0.0-8.0); NEUT % 51.3 % (16.0-70.0); PLATELET COUNT 199 TH/MM3 (150-450); RED BLOOD COUNT 3.67 MIL/MM3 (4.00-5.30); WHITE BLOOD COUNT 5.3 TH/MM3 (4.0-11.0)
[2017-05-26 08:51] LABS: CHLORIDE 105 MEQ/L (98-107); POTASSIUM 3.5 MEQ/L (3.5-5.1); SODIUM (NA) 139 MEQ/L (136-145)
[2017-05-26 08:55] LABS: ANION GAP 9 MEQ/L (5-15); BICARBONATE 25.4 MEQ/L (21.0-32.0)
[2017-05-26 08:56] LABS: BLOOD UREA NITROGEN 18 MG/DL (7-18)
[2017-05-26 08:58] LABS: ALT (GPT) 68 U/L (10-53)
[2017-05-26 08:59] LABS: AST (GOT) 39 U/L (15-37); GLOMERULAR FILTRATION RATE 91 ML/MIN (>89)
[2017-05-26 09:00] LABS: TOTAL BILIRUBIN ADULT 0.4 MG/DL (0.2-1.0)
[2017-05-26] MEDS ORDERED: HEPARIN SODIUM - SQ 10,000 UNITS/ML VIAL SQ SCH (09:00)
[2017-05-26 09:01] LABS: ALKALINE PHOSPHATASE 94 U/L (45-117)
[2017-05-26 12:11] VITALS: BP 113/78; PULSE 50; RESP 19; TEMP 98.1; O2SAT 99
--- NOTE | 2017-05-26 13:14 | HHI.PR ---
Subjective Remarks Discussed with nursing. Nursing reports that overnight patient had multiple visitors, who created a 10th with sheets in the room. High suspicion of drug use overnight by the nurse. Later called today by nurse report the patient had previously been agitated, was now sleeping, and only arousable to sternal rub. After 0.2 mg of Narcan, patient walking around. Patient is alert and oriented 4, is asking to leave. We discussed that she has a life-threatening infection, but she says all her friends say she should leave. He promises to follow-up at a hospital for further antibiotics. Objective Vital Signs Date Time Temp Pulse Resp B/P (MAP) Pulse Ox O2 Delivery O2 Flow Rate FiO2 05/26/17 12:11 98.1 50 19 113/78 (90) 99 05/26/17 08:14 97.7 77 19 127/87 (100) 100 05/26/17 00:00 96.7 101 16 108/82 (91) 100 05/25/17 20:00 97.3 100 16 118/81 (93) 99 05/25/17 15:22 97.7 83 19 114/78 (90) 100 05/25/17 15:00 05/25/17 14:42 93 18 114/70 (85) 100 Room Air 05/25/17 13:38 16 05/25/17 13:30 98.4 101 16 120/67 (84) 99 I/O 05/25/17 05/25/17 05/25/17 05/26/17 05/26/17 05/26/17 06:59 14:59 22:59 06:59 14:59 22:59 Intake Total 250 ml 1250 ml Balance 250 ml 1250 ml Intake Oral 1000 ml IV Total 250 ml 250 ml # Voids 4 # Bowel Movements 1 Result Diagram: 05/26/1730 05/26/17 0730 Objective Remarks GENERAL: Patient walking around in room. Alert and oriented 4. SKIN: Warm and dry. HEAD: Normocephalic. EYES: No scleral icterus. No injection or drainage. NECK: Supple, trachea midline. No JVD or lymphadenopathy. CARDIOVASCULAR: Regular rate and rhythm without murmurs, gallops, or rubs. RESPIRATORY: Breath sounds equal bilaterally. No accessory muscle use. GASTROINTESTINAL: Abdomen soft, non-tender, nondistended. MUSCULOSKELETAL: No cyanosis, or edema. BACK: Nontender without obvious deformity. No CVA tenderness. A/P Assessment and Plan //Right ac abscess. Have consulted hand surgery for incision and drainage. Continue antibiotics //Drug Abuse. suspicion of using drugs in the hospital. act. patient will be leaving AMA however.. Ambrocio Narvaez MD May 26, 2017 13:14
[2017-05-27] MEDS ORDERED: PHARMACY ORDERED LAB ONE (11:45)
--- NOTE | 2017-05-29 15:08 | PD.AMA ---
Against Medical Advice Note Diagnosis: (1) Abscess of antecubital fossa Discharge Disposition: Against Medical Advice Pt Condition on Discharge: Fair Recommended Treatment Course Recommend incision and drainage. Continued IV antibiotics. Advised patient to seek urgent medical attention. AMA Statement Patient Nereida Marinelli has decided to leave the hospital against medical advice. This patient has the capacity to refuse care and understands the risks of leaving, including permanent disability and/or , and has had an opportunity to ask questions about her condition. The patient has been informed that she may return for care at any time, and follow up has been arranged/advised. Ambrocio Narvaez MD May 29, 2017 15:08
--- NOTE | 2017-05-29 15:16 | HHI.DS ---
Discharge Summary Admission Date May 25, 2017 at 14:27 Discharge Date: May 26, 2017 Admitting Diagnosis R arm cellulitis, failure of outpt RX, IVDA (1) Right arm cellulitis ICD Code: L03.113 - Cellulitis of right upper limb Diagnosis: Principal Status: Acute Procedures None Brief History - From Admission 26-year-old female with a history of IV drug use, who presents with a 7 day history of constant sharp pain in the right antecubital fossa, with several day history of worsening chills. Patient came into the ER on 05/21, however there is no abscess noted at that time. Patient was prescribed clindamycin, which she says she has been taking. Patient says she has been very distraught over custody of her son, and because of this has been the past 2 weeks, on and off, in a drug house receiving many different types of illicit drugs. Patient denies any measured fevers. Denies any nausea or vomiting. She says she is very distraught over custody of her son. She denies wanting to harm herself. CBC/BMP: 05/26/17 0730 05/26/17 0730 Imaging Last Impressions Upper Extremity Ultrasound 05/25/17 0000 Signed Impressions: Service Date/Time: May 14:27 - CONCLUSION: 1. Findings consistent with 4.1 x 2.1 x 3.9 cm abscess in the right antecubital fossa. Melchor Landaverde MD Hospital Course Patient was admitted with right antecubital fossa abscess, secondary to IVDU. Ultrasound showed abscess as above. An surgery was consulted for incision and drainage. Patient was started on broad-spectrum IV antibiotics. Patient had multiple visitors, suspicion of using drugs in the room. Patient was found to be obtunded on 05/26, however woke up with 0.2 mg of IV Narcan. She was alert and oriented, wish to leave hospital. She was placed on act. She left AGAINST MEDICAL ADVICE. Law-enforcement was contacted, found that patient had been admitted to [facility], and paperwork was faxed there by case management. Please see subjective and assessment and plan from day of discharge below: S;Discussed with nursing. Nursing reports that overnight patient had multiple visitors, who created a 10th with sheets in the room. High suspicion of drug use overnight by the nurse. Later called today by nurse report the patient had previously been agitated, was now sleeping, and only arousable to sternal rub. After 0.2 mg of Narcan, patient walking around. Patient is alert and oriented 4, is asking to leave. We discussed that she has a life-threatening infection, but she says all her friends say she should leave. He promises to follow-up at a hospital for further antibiotics. a/p //Right ac abscess. Have consulted hand surgery for incision and drainage. Continue antibiotics //Drug Abuse. suspicion of using drugs in the hospital. act. patient will be leaving AMA however.. Pt Condition on Discharge: Fair Discharge Disposition: Discharge Home Discharge Time: <= 30 minutes Discharge Instructions DIET: Follow Instructions for: As Tolerated, No Restrictions Ambrocio Narvaez MD May 29, 2017 15:16
== END 2017-05-26 13:25 | disposition left against medical advice (07) | DRG 603 ==
LOC: PHEFT 12:23 → PHEDA 14:27 → PH3A 15:21
PROVIDERS: ADMIT Internal Medicine; ATTEND Internal Medicine
DX: L02.413 Cutaneous abscess of right upper limb (principal); D72.1 Eosinophilia; L03.113 Cellulitis of right upper limb; F41.9 Anxiety disorder, unspecified; F19.10 Other psychoactive substance abuse, uncomplicated; Z72.0 Tobacco use; R00.0 Tachycardia, unspecified
CPT/HCPCS: 76882; 76937; 80053; 80074; 84702; 85025; 85610; 85730; 87040; 87077; 87186; 87205; J1644; J2060; J2310; J3370; J7050

== ENCOUNTER 2017-07-27 02:13 | Emergency (ER) | payer MEDICAID ==
[2017-07-27 02:21] VITALS: BP 130/86; PULSE 93; RESP 16; TEMP 99.1; O2SAT 98
[2017-07-27] MEDS ORDERED: DIFL100T PO ×2 (02:36)
[2017-07-27] MEDS ORDERED: BACT800T5 PO ×2 (02:36)
--- NOTE | 2017-07-27 02:43 | PD ---
HPI Chief Complaint: Skin Problem Time Seen by Provider: 02:29 Travel History International Travel<30 days: No Contact w/Intl Traveler<30days: No Traveled to known affect area: No History of Present Illness HPI 26-year-old white female presents to emergency department stating that she has skin infections on her buttocks and lower legs. She's had a history of staph infections in the past. Symptoms are mild to moderate. She denies any associated symptoms of fever or chills. Positive drainage. She also reports that she gets yeast infections when she takes antibiotics. PFSH Past Medical History Narrative Medical Anxiety, substance abuse, MRSA Anxiety: Yes Cardiovascular Problems: No Cerebrovascular Accident: No Diminished Hearing: No Endocrine: No Genitourinary: No Implanted Vascular Access Dvce: No Musculoskeletal: No Neurologic: No Reproductive: No Respiratory: No Integumentary: Yes (STAPH INFECTION 2003) Immunizations Current: Yes Migraines: No Seizures: Yes ("ONCE") Tetanus Vaccination: < 5 Years ?: Not LMP: 07/11/17 : 0 Past Surgical History Section: Yes Gynecologic Surgery: Yes (C SECTION ) Oral Surgery: Yes (WISDOM TEETH ) Other Surgery: Yes Social History Alcohol Use: Yes (RARELY) Tobacco Use: Yes (1 ppd) Substance Use: Yes (HEROIN, AMPHETAMINES LAST USED 07/23/17) Allergies-Medications (Allergen,Severity, Reaction): Coded Allergies: promethazine (Unverified Allergy, Intermediate, HALUCINATIONS, 07/27/17) Reported Meds & Prescriptions Reported Meds & Active Scripts Active Diflucan (Fluconazole) 100 Mg Tab 100 Mg PO DAILY Bactrim DS (Sulfamethoxazole-Trimethoprim) 800-160 Mg Tab 1 Tab PO BID Review of Systems General / Constitutional: No: Fever Eyes: No: Visual changes HENT: No: Headaches Cardiovascular: No: Chest Pain or Discomfort Respiratory: No: Shortness of Breath Gastrointestinal: No: Abdominal Pain Genitourinary: No: Dysuria Musculoskeletal: No: Pain Skin: Positive Rash, Positive Lumps, Positive Lesions Neurologic: No: Weakness Psychiatric: No: Depression Endocrine: No: Polydipsia Hematologic/Lymphatic: No: Easy Bruising Physical Exam Narrative GENERAL: This is a well-nourished, well-developed patient, in no apparent distress. The patient's examined with Brigitte present SKIN: Patient has multiple superficial follicular areas of erythema to the buttocks and inner thighs. No areas of fluctuance or pointing., ecchymoses or lesions. Warm and dry. HEAD: Atraumatic. Normocephalic. EYES: PERRL, EOMI, no discharge or injection. No scleral icterus. EARS: Clear NOSE: Nasal turbinates appear normal. THROAT: Mucosa pink and moist. Airway patent. NECK: Trachea midline. supple, moves head freely. LUNGS: Clear to auscultation. CV: Regular in rhythm. ABDOMEN: Soft nontender. EXT: No clubbing cyanosis or edema. Data Data Last Documented VS Vital Signs Date Time Temp Pulse Resp B/P (MAP) Pulse Ox O2 Delivery O2 Flow Rate FiO2 07/27/17 02:21 99.1 93 16 130/86 (101) 98 Room Air Orders Orders Sulfamet-Trimeth Ds 800-160 Mg (Bactrim (07/27/17 02:45) Ed Discharge Order (07/27/17 02:39) MDM Medical Decision Making Medical Screen Exam Complete: Yes Emergency Medical Condition: Yes Medical Record Reviewed: Yes Differential Diagnosis MDM: High Differential diagnoses: Abscess, folliculitis, cellulitis, lymphangitis, abrasion, contact dermatitis Narrative Course Patient's given Bactrim DS by mouth. Diagnosis Primary Impression: Folliculitis Patient Instructions: General Instructions Additional Instructions: Rest. Elevation. keep clean and dry. Warm compresses. Daily wound care with soap, water and Neosporin. Three Advil every 6 hours. Bactrim DS and Diflucan. Follow-up with a primary care doctor in one week. Return to the ER for any problems. Med/Other Pt SpecificInfo: Prescription(s) given Scripts Fluconazole (Diflucan) 100 Mg Tab 100 MG PO DAILY for Infection, #3 TAB 0 Refills Prov: Kehinde Cox MD 07/27/17 Sulfamethoxazole-Trimethoprim (Bactrim DS) 800-160 Mg Tab 1 TAB PO BID for Infection, #20 TAB 0 Refills Prov: Kehinde Cox MD 07/27/17 Disposition: 01 DISCHARGE HOME Condition: Stable Adam Arguelles Jul 27, 2017 02:43
[2017-07-27] MEDS ORDERED: SULFAMETHOXAZOLE-TRIMETHOPRIM DS 800-160 MG TAB PO ONE ×2 (02:45)
== END 2017-07-27 02:50 | disposition home or self-care (01) ==
LOC: NEPD 02:13
DX: L73.9 Follicular disorder, unspecified (principal); F17.200 Nicotine dependence, unspecified, uncomplicated
CPT/HCPCS: 99284

== ENCOUNTER 2017-09-03 14:01 | Emergency (ER) | payer MEDICAID ==
[~2017-09-03] VITALS: Ht 170.2 cm; Wt 68.0 kg
[~2017-09-03 14:01] MED LIST changes: +BACT800T5 PO; -CLIN1CAP6 PO; +DIFL100T PO; -IBUP800T23 PO
[2017-09-03 14:14] VITALS: BP 131/97; PULSE 114; RESP 20; TEMP 98.2; O2SAT 98
--- NOTE | 2017-09-03 15:54 | PD ---
HPI Chief Complaint: OD/ Ingestion Time Seen by Provider: 14:18 Travel History International Travel<30 days: No Contact w/Intl Traveler<30days: No Traveled to known affect area: No History of Present Illness HPI 26-year-old female presents to the emergency department via EMS for evaluation of heroin overdose. Patient was passed out in the bathroom of a [employer]. When EMS arrived, she was unresponsive. They gave her 0.4 mg of Narcan. She is not using a 15. Apparently, the patient was injecting heroin. The patient her admits to injecting heroin. She states that she is upset because her son's father has him so she decided to inject heroin. She is tearful. She denies this being a suicide attempt. However, she states that she was "trying to take the pain away". The patient did go to the bathroom where she was found with what appears to be a Xanax. She has drug paraphernalia in her bag including syringes and small bags. The patient states that she does not usually injecting heroin, only when she is upset. Patient denies any chronic medical problems or taking prescribed medications. Moderate severity. No pain. PFSH Past Medical History Anxiety: Yes Depression: Yes Cardiovascular Problems: No Cerebrovascular Accident: No Diminished Hearing: No Endocrine: No Genitourinary: No Implanted Vascular Access Dvce: No Musculoskeletal: No Neurologic: No Reproductive: No Respiratory: No Integumentary: Yes (STAPH INFECTION 2004) Immunizations Current: Yes Migraines: No Seizures: Yes ("ONCE") ?: Not : 0 Past Surgical History Section: Yes Gynecologic Surgery: Yes (C SECTION ) Oral Surgery: Yes (WISDOM TEETH ) Other Surgery: Yes Social History Alcohol Use: No Tobacco Use: Yes (1 ppd) Substance Use: Yes (HEROIN, MARIJUANA) Allergies-Medications (Allergen,Severity, Reaction): Coded Allergies: promethazine (Unverified Allergy, Intermediate, HALUCINATIONS, 09/03/17) Reported Meds & Prescriptions Reported Meds & Active Scripts Active Diflucan (Fluconazole) 100 Mg Tab 100 Mg PO DAILY Bactrim DS (Sulfamethoxazole-Trimethoprim) 800-160 Mg Tab 1 Tab PO BID Review of Systems Except as stated in HPI: all other systems reviewed are Neg Physical Exam Narrative GENERAL: Well-nourished, well-developed female patient, afebrile. SKIN: Focused skin assessment warm/dry. HEAD: Normocephalic. Atraumatic. EYES: No scleral icterus. No injection or drainage. NECK: Supple, trachea midline. No JVD or lymphadenopathy. CARDIOVASCULAR: Regular rate and rhythm without murmurs, gallops, or rubs. RESPIRATORY: Breath sounds equal bilaterally. No accessory muscle use. Lungs sounds are clear to auscultation. GASTROINTESTINAL: Abdomen soft, non-tender, nondistended. MUSCULOSKELETAL: No cyanosis, or edema. BACK: Nontender without obvious deformity. No CVA tenderness. PSYCHIATRIC: No delusional thought processes. No hallucinations. Patient is tearful. Data Data Last Documented VS Vital Signs Date Time Temp Pulse Resp B/P (MAP) Pulse Ox O2 Delivery O2 Flow Rate FiO2 09/03/17 19:16 77 18 105/57 (73) 96 09/03/17 17:00 Room Air 09/03/17 14:14 98.2 Orders Orders Complete Blood Count With Diff (09/03/17 14:58) Comprehensive Metabolic Panel (09/03/17 14:58) Urinalysis - C+S If Indicated (09/03/17 14:58) Ed Urine Pregnancytest Poc (09/03/17 14:58) Psych Screen (09/03/17 14:58) Drug Screen, Random Urine (09/03/17 14:58) Alcohol (Ethanol) (09/03/17 14:58) Labs Laboratory Tests Test 09/03/17 15:13 White Blood Count 5.4 TH/MM3 Red Blood Count 3.86 MIL/MM3 Hemoglobin 12.3 GM/DL Hematocrit 36.2 % Mean Corpuscular Volume 93.7 FL Mean Corpuscular Hemoglobin 31.9 PG Mean Corpuscular Hemoglobin Concent 34.1 % Red Cell Distribution Width 13.3 % Platelet Count 176 TH/MM3 Mean Platelet Volume 7.6 FL Neutrophils (%) (Auto) 61.3 % Lymphocytes (%) (Auto) 26.5 % Monocytes (%) (Auto) 9.8 % Eosinophils (%) (Auto) 2.2 % Basophils (%) (Auto) 0.2 % Neutrophils # (Auto) 3.3 TH/MM3 Lymphocytes # (Auto) 1.4 TH/MM3 Monocytes # (Auto) 0.5 TH/MM3 Eosinophils # (Auto) 0.1 TH/MM3 Basophils # (Auto) 0.0 TH/MM3 CBC Comment DIFF FINAL Differential Comment Blood Urea Nitrogen 10 MG/DL Creatinine 0.80 MG/DL Random Glucose 92 MG/DL Total Protein 7.2 GM/DL Albumin 3.5 GM/DL Calcium Level 8.9 MG/DL Alkaline Phosphatase 86 U/L Aspartate Amino Transf (AST/SGOT) 39 U/L Alanine Aminotransferase (ALT/SGPT) 75 U/L Total Bilirubin 0.3 MG/DL Sodium Level 141 MEQ/L Potassium Level 3.8 MEQ/L Chloride Level 106 MEQ/L Carbon Dioxide Level 30.4 MEQ/L Anion Gap 5 MEQ/L Estimat Glomerular Filtration Rate 86 ML/MIN Urine Opiates Screen POS Urine Barbiturates Screen NEG Urine Amphetamines Screen POS Urine Benzodiazepines Screen POS Urine Cocaine Screen POS Urine Cannabinoids Screen POS Ethyl Alcohol Level LESS THAN 3 MG/DL MDM Medical Decision Making Medical Screen Exam Complete: Yes Emergency Medical Condition: Yes Medical Record Reviewed: Yes Differential Diagnosis Heroin overdose versus polysubstance abuse versus depression versus anxiety Narrative Course 26-year-old female presents to the emergency department after she overdosed on heroin. Patient has drug paraphernalia on her and was caught trying to take what appears to be a Xanax in the bathroom as well. She is tearful stating she "wants to take the pain away". She denies any suicidal ideation at this time. CBC, CMP, UA, urine drug screen, alcohol level, urine test are ordered and pending. CBC shows no acute abnormality. CMP shows elevated AST of 39, ALT 75. Alcohol level is less than 3. UDS is positive for opiates, amphetamines, benzodiazepines, cocaine, cannabinoids. UA is pending. UPT is negative. Psychiatric screen has been ordered and is pending. Mental health screening discussed with the patient. Psychiatric screen ordered. Patient did not want to wait for psychiatric screening to be completed. She denies any suicidal or homicidal ideation to me. Patient is return if she has any thoughts of hurting herself. Diagnosis Primary Impression: Polysubstance abuse Additional Impressions: Heroin overdose Qualified Codes: T40.1X4A - Poisoning by heroin, undetermined, initial encounter Depression Qualified Codes: F32.9 - Major depressive disorder, single episode, unspecified Referrals: [facility] for appointment Patient Instructions: General Instructions, Opioid Overdose (ED) Additional Instructions: Stop using drugs. Return the emergency department if he has any thoughts of hurting yourself. Follow-up with your primary care physician. Med/Other Pt SpecificInfo: No Change to Meds Disposition: 01 DISCHARGE HOME Condition: Stable Silviano,Lizette ANAYA Sep 03, 2017 15:54
[2017-09-03 15:57] VITALS: BP 109/69; PULSE 79; RESP 12; O2SAT 97
[2017-09-03 15:57] LABS: AUTOMATED NEUTROPHIL # 3.3 TH/MM3 (1.8-7.7); BASOPHIL % 0.2 % (0.0-2.0); EOSINOPHIL # 0.1 TH/MM3 (0-0.4); EOSINOPHIL % 2.2 % (0.0-4.0); HEMATOCRIT 36.2 % (35.0-46.0); HEMO FLAGS DIFF FINAL; LYMPH % 26.5 % (9.0-44.0); LYMPHOCYTE # 1.4 TH/MM3 (1.0-4.8); MEAN CELL VOLUME 93.7 FL (80.0-100.0); MEAN CORPUSCULAR HEMOGLOBIN 31.9 PG (27.0-34.0); MEAN CORPUSCULAR HGB CONC 34.1 % (32.0-36.0); MONO % 9.8 % (0.0-8.0); NEUT % 61.3 % (16.0-70.0); PLATELET COUNT 176 TH/MM3 (150-450); RED BLOOD COUNT 3.86 MIL/MM3 (4.00-5.30); RED CELL DISTRIBUTION WIDTH 13.3 % (11.6-17.2); WHITE BLOOD COUNT 5.4 TH/MM3 (4.0-11.0)
[2017-09-03 16:10] LABS: ANION GAP 5 MEQ/L (5-15); AST (GOT) 39 U/L (15-37); BICARBONATE 30.4 MEQ/L (21.0-32.0); BLOOD UREA NITROGEN 10 MG/DL (7-18); CHLORIDE 106 MEQ/L (98-107); GLOMERULAR FILTRATION RATE 86 ML/MIN (>89); POTASSIUM 3.8 MEQ/L (3.5-5.1); SODIUM (NA) 141 MEQ/L (136-145)
[2017-09-03 16:13] LABS: ALKALINE PHOSPHATASE 86 U/L (45-117); ALT (GPT) 75 U/L (10-53); TOTAL BILIRUBIN ADULT 0.3 MG/DL (0.2-1.0)
[2017-09-03 16:18] LABS: ALCOHOL LESS THAN 3 MG/DL (0-5)
[2017-09-03 17:00] VITALS: BP 112/59; PULSE 80; RESP 22; O2SAT 96
[2017-09-03 19:16] VITALS: BP 105/57; PULSE 77; RESP 18; O2SAT 96
[2017-09-03 22:46] VITALS: BP 104/68; PULSE 87; RESP 18; O2SAT 100
== END 2017-09-03 23:24 | disposition home or self-care (01) ==
LOC: NEPC 14:01
DX: T40.1X1A Poisoning by heroin, accidental (unintentional), initial encounter (principal); F32.9 Major depressive disorder, single episode, unspecified; F19.10 Other psychoactive substance abuse, uncomplicated; F41.9 Anxiety disorder, unspecified; R56.9 Unspecified convulsions; F17.200 Nicotine dependence, unspecified, uncomplicated; Z88.8 Allergy status to other drugs, medicaments and biological substances; Z79.899 Other long term (current) drug therapy
CPT/HCPCS: 80053; 80307; 81001; 84703; 85025; 99283

== ENCOUNTER 2017-09-09 19:14 | Inpatient (IN) | payer MEDICAID ==
[~2017-09-09] VITALS: Ht 170.2 cm; Wt 73.0 kg
[2017-09-09] MEDS ORDERED: GADODIAMIDE PF 287 MG/ML 20 ML VIAL (for RAD MRI) IVCONTRAST ONE (19:15)
[2017-09-09 19:17] VITALS: BP 93/55; PULSE 98; RESP 16; TEMP 97.6; O2SAT 99
[2017-09-09] MEDS ORDERED: SODIUM CHLOR 0.9% 1000 ML INJ 1,000 ML IV ONE ×3 (19:51→23:39)
[2017-09-09] MEDS ORDERED: SODIUM CHLOR 0.9% 1000 ML INJ 800 ML IV ONE (19:51)
--- NOTE | 2017-09-09 19:57 | PD ---
HPI Chief Complaint: General Weakness Time Seen by Provider: 19:48 Travel History International Travel<30 days: No Contact w/Intl Traveler<30days: No Traveled to known affect area: No History of Present Illness HPI 26-year-old female with history of IVDU here for evaluation of generalized weakness, jaundice, and scleral icterus. Patient reports that for the last 2 days she has had decreased energy and has spent most of the day in bed. She reports feeling warm, however has not had any documented fevers. Her friend noticed that her skin in her eyes looked yellow today. She is complaining of diffuse body aches. She reports taking 2 Tylenol today and yesterday. She denies alcohol use. No abdominal pain. No known history of hepatitis. PFSH Past Medical History Anxiety: Yes Depression: Yes Cardiovascular Problems: No Cerebrovascular Accident: No Diminished Hearing: No Endocrine: No Genitourinary: No Implanted Vascular Access Dvce: No Musculoskeletal: No Neurologic: No Reproductive: No Respiratory: No Integumentary: Yes (STAPH INFECTION 2004) Immunizations Current: Yes Migraines: No Seizures: Yes ("ONCE") ?: Not : 0 Past Surgical History Section: Yes Gynecologic Surgery: Yes (C SECTION ) Oral Surgery: Yes (WISDOM TEETH ) Other Surgery: Yes Social History Alcohol Use: No Tobacco Use: Yes (1 ppd) Substance Use: Yes (HEROIN, MARIJUANA) Allergies-Medications (Allergen,Severity, Reaction): Coded Allergies: promethazine (Unverified Allergy, Intermediate, HALUCINATIONS, 09/09/17) Reported Meds & Prescriptions Reported Meds & Active Scripts Active No Active Prescriptions or Reported Medications Review of Systems Except as stated in HPI: all other systems reviewed are Neg Physical Exam Narrative GENERAL: Well-developed, well-nourished, no apparent distress. SKIN: Focused skin assessment warm/dry. Diffusely jaundiced. Tract bowman on bilateral upper extremities. No areas of cellulitis. HEAD: Atraumatic. Normocephalic. EYES: Pupils equal and round. Bilateral scleral icterus. ENT: No nasal bleeding or discharge. Mucous membranes pink and moist. NECK: Trachea midline. No JVD. No nuchal rigidity. CARDIOVASCULAR: Regular rate and rhythm. RESPIRATORY: No accessory muscle use. Clear to auscultation. Breath sounds equal bilaterally. GASTROINTESTINAL: Abdomen soft, non-tender, nondistended. MUSCULOSKELETAL: No obvious deformities. No clubbing. No cyanosis. No edema. NEUROLOGICAL: Awake and alert. No obvious cranial nerve deficits. Motor grossly within normal limits. Normal speech. PSYCHIATRIC: Appropriate mood and affect; insight and judgment normal. Data Data Last Documented VS Vital Signs Date Time Temp Pulse Resp B/P (MAP) Pulse Ox O2 Delivery O2 Flow Rate FiO2 09/09/17 23:02 98.0 86 16 96/53 (67) 99 Room Air Orders Orders Sepsis Workup Initiated (09/09/17 ) Complete Blood Count With Diff (09/09/17 19:51) Comprehensive Metabolic Panel (09/09/17 19:51) Beta Hcg (Quant/Titer) (09/09/17 19:51) Prothrombin Time / Inr (Pt) (09/09/17 19:51) Act Partial Throm Time (Ptt) (09/09/17 19:51) Lactic Acid Sepsis Protocol (09/09/17 19:51) Urinalysis - C+S If Indicated (09/09/17 19:51) Influenzae A/B Antigen (09/09/17 19:51) Blood Culture (09/09/17 19:51) Chest, Single Ap (09/09/17 19:51) Ecg Monitoring (09/09/17 19:51) Iv Access Insert/Monitor (09/09/17 19:51) Oximetry (09/09/17 19:51) Sodium Chlor 0.9% 1000 Ml Inj (Ns 1000 M (09/09/17 19:51) Sodium Chlor 0.9% 1000 Ml Inj (Ns 1000 M (09/09/17 19:51) Direct Bilirubin (09/09/17 19:51) Lipase (09/09/17 19:51) Tylenol (Acetaminophen) (09/09/17 19:51) Ammonia (09/09/17 19:51) Creatine Kinase (Cpk) (09/09/17 19:55) Us Abdomen Gallbladder (09/09/17 ) Piperacil-Tazo 4.5 Gm Premix (Zosyn 4.5 (09/09/17 21:30) Metoclopramide Inj (Reglan Inj) (09/09/17 21:30) Ketorolac Inj (Toradol Inj) (09/09/17 21:30) Mri C Spine W&W/O Contrast (09/09/17 ) Mri L Spine W&W/O Contrast (09/09/17 ) Mri T Spine W & W/O Contrast (09/09/17 ) Vancomycin Inj (Vancomycin Inj) (09/09/17 21:45) Gadodiamide Pf Inj (Omniscan Pf Inj) (09/09/17 19:15) Labs Laboratory Tests Test 09/09/17 20:30 09/09/17 20:35 White Blood Count 13.2 TH/MM3 Red Blood Count 4.00 MIL/MM3 Hemoglobin 12.9 GM/DL Hematocrit 37.1 % Mean Corpuscular Volume 92.7 FL Mean Corpuscular Hemoglobin 32.2 PG Mean Corpuscular Hemoglobin Concent 34.7 % Red Cell Distribution Width 13.3 % Platelet Count 92 TH/MM3 Mean Platelet Volume 8.9 FL Neutrophils (%) (Auto) 79.5 % Lymphocytes (%) (Auto) 12.5 % Monocytes (%) (Auto) 7.5 % Eosinophils (%) (Auto) 0.3 % Basophils (%) (Auto) 0.2 % Neutrophils # (Auto) 10.5 TH/MM3 Lymphocytes # (Auto) 1.7 TH/MM3 Monocytes # (Auto) 1.0 TH/MM3 Eosinophils # (Auto) 0.0 TH/MM3 Basophils # (Auto) 0.0 TH/MM3 CBC Comment AUTO DIFF Differential Total Cells Counted 100 Neutrophils % (Manual) 69 % Band Neutrophils % 10 % Lymphocytes % 13 % Monocytes % 7 % Neutrophils # (Manual) 10.6 TH/MM3 Metamyelocytes 1 % Differential Comment FINAL DIFF MANUAL Dohle Bodies PRESENT Platelet Estimate LOW Platelet Morphology Comment NORMAL Prothrombin Time 14.0 SEC Prothromb Time International Ratio 1.4 RATIO Activated Partial Thromboplast Time 31.7 SEC Blood Urea Nitrogen 32 MG/DL Creatinine 1.21 MG/DL Random Glucose 108 MG/DL Total Protein 6.7 GM/DL Albumin 2.9 GM/DL Calcium Level 8.3 MG/DL Alkaline Phosphatase 174 U/L Aspartate Amino Transf (AST/SGOT) 112 U/L Alanine Aminotransferase (ALT/SGPT) 131 U/L Total Bilirubin 7.1 MG/DL Direct Bilirubin 5.5 MG/DL Sodium Level 136 MEQ/L Potassium Level 3.4 MEQ/L Chloride Level 102 MEQ/L Carbon Dioxide Level 27.0 MEQ/L Anion Gap 7 MEQ/L Estimat Glomerular Filtration Rate 53 ML/MIN Total Creatine Kinase 26 U/L Lipase 120 U/L Human Chorionic Gonadotropin, Quant LESS THAN 1 MIU/ML Acetaminophen Level LESS THAN 2.0 MCG/ML Lactic Acid Level 1.3 mmol/L Ammonia 18 MCMOL/L [facility] Medical Decision Making Medical Screen Exam Complete: Yes Emergency Medical Condition: Yes Differential Diagnosis Acute hepatitis, biliary obstruction, sepsis, hyperbilirubinemia Narrative Course Initial vital signs show heart rate 98, blood pressure 93/55, pulse ox 99% on room air, oral temp 97.6F. CBC is remarkable for WBC 13.2, neutrophils 79.5%, platelets 92 CMP is remarkable for BUN 32, creatinine 1.21, GFR 53, T bili 7.1, direct bili 5.5, AST 112, ALT 131, alkaline phosphatase 174. Beta hCG is negative. Lipase is 120. INR is 1.4 Tylenol level is negative. Patient was made aware of all laboratory findings. She tells me that she is having neck pain. There is no nuchal rigidity on her exam. She does have some midline cervical spine and thoracic spine tenderness without step-off. Given her history of IVDU, MRI of the entire spinal be ordered to rule out epidural abscess/osteomyelitis/discitis. The patient was also empirically written for a dose of Zosyn as well as vancomycin given her hyperbilirubinemia/sepsis. Right upper quadrant ultrasound was also ordered to assess for possible biliary obstruction. Patient does report taking linked sensation in her bilateral fingers and feet. There are no motor deficits or weakness on exam. Chest x-ray: CONCLUSION: No acute disease. Right upper quadrant ultrasound: CONCLUSION: Normal examination for a patient of this age. MRI C-spine: CONCLUSION: 1. Exam within normal limits for age. Negative for osteomyelitis, discitis or evidence for epidural abscess. MRI T-spine: CONCLUSION: 1. Negative for osteomyelitis or epidural abscess which normal appearance of the spine. Incidental right-sided perineural cyst at T11-12. MRI of L-spine: CONCLUSION: 1. Scolio tear and disc protrusion L5-S1 without stenosis. No abnormal enhancement. Negative for discitis, osteomyelitis or epidural abscess. While discussing all results with the patient she had a brief 20 second episode of unresponsiveness. During this time she had nystagmus, however would not respond to verbal or painful stimuli. After this episode the patient was fully aware, and tells me that during the 20 seconds of unresponsiveness she was able to hear me, yet she was unable to move. After this episode she is neurologically intact. She does not appear post ictal. There is no nuchal rigidity on exam. Patient remains hypotensive with a blood pressure of 90s over 60s despite 2 L normal saline IV. Her heart rate is in the 80s. I discussed the case with on-call security system installer Dr. Olguin who has agreed to admit the patient to his service for further treatment and evaluation. Critical Care Narrative Aggregate critical care time was 40 minutes. Time to perform other separately billable procedures was not included in the critical care time. My time did not include minutes spent treating any other patients simultaneously or on activities that did not directly contribute to the patient's treatment. The services I provided to this patient were to treat and/or prevent clinically significant deterioration that could result in: , permanent disability, worsening clinical condition, septic shock I provided critical care services requiring my management, as noted below: Chart data review, documentation time, medication orders and management, vital sign assessments/reviewing monitor data, ordering and reviewing lab tests, ordering and interpreting/reviewing x-rays and diagnostic studies, care of the patient and discussion of the patient with the admitting physicians. Diagnosis Primary Impression: Sepsis Qualified Codes: A41.9 - Sepsis, unspecified organism Additional Impressions: Hyperbilirubinemia Jaundice IV drug user Thrombocytopenia Admitting Information Admitting Physician Requests: Admit Scripts No Active Prescriptions or Reported Meds Kehinde Cox MD Sep 09, 2017 19:57
--- NOTE | 2017-09-09 20:23 | RADRPT ---
EXAM DATE/TIME: 09/09/2017 20:09 [facility] COMPARISON: No previous studies available for comparison. INDICATIONS : Shortness of breath, chest pain, and fatigue. MEDICAL HISTORY : None. SURGICAL HISTORY : None. ENCOUNTER: Initial ACUITY: 2 days PAIN SCORE: 6/10 LOCATION: chest FINDINGS: A single view of the chest demonstrates the lungs to be symmetrically aerated without evidence of mas s, infiltrate or effusion. The cardiomediastinal contours are unremarkable. Osseous structures are intact. CONCLUSION: No acute disease. Adam Moore MD on September 09, 2017 at 20:21 Board Certified Radiologist. This report was verified electronically.
[2017-09-09 20:57] LABS: AUTOMATED NEUTROPHIL # 10.5 TH/MM3 (1.8-7.7); BASOPHIL % 0.2 % (0.0-2.0); EOSINOPHIL % 0.3 % (0.0-4.0); HEMATOCRIT 37.1 % (35.0-46.0); LYMPH % 12.5 % (9.0-44.0); LYMPHOCYTE # 1.7 TH/MM3 (1.0-4.8); MEAN CELL VOLUME 92.7 FL (80.0-100.0); MEAN CORPUSCULAR HEMOGLOBIN 32.2 PG (27.0-34.0); MEAN CORPUSCULAR HGB CONC 34.7 % (32.0-36.0); MONO % 7.5 % (0.0-8.0); NEUT % 79.5 % (16.0-70.0); RED CELL DISTRIBUTION WIDTH 13.3 % (11.6-17.2); WHITE BLOOD COUNT 13.2 TH/MM3 (4.0-11.0)
[2017-09-09 21:04] VITALS: RESP 20
[2017-09-09 21:11] LABS: APTT (PATIENT) 31.7 SEC (24.3-30.1); INTERNATIONAL NORMALIZED RATIO 1.4 RATIO
[2017-09-09 21:12] LABS: ANION GAP 7 MEQ/L (5-15); AST (GOT) 112 U/L (15-37); BLOOD UREA NITROGEN 32 MG/DL (7-18); CHLORIDE 102 MEQ/L (98-107); GLOMERULAR FILTRATION RATE 53 ML/MIN (>89); POTASSIUM 3.4 MEQ/L (3.5-5.1); SODIUM (NA) 136 MEQ/L (136-145)
[2017-09-09 21:17] LABS: ALKALINE PHOSPHATASE 174 U/L (45-117); BETA HCG QUANT LESS THAN 1 MIU/ML (0-5); TOTAL BILIRUBIN ADULT 7.1 MG/DL (0.2-1.0)
[2017-09-09 21:24] LABS: ACETAMINOPHEN LESS THAN 2.0 MCG/ML (10.0-30.0); ALT (GPT) 131 U/L (10-53)
[2017-09-09] MEDS ORDERED: METOCLOPRAMIDE HCL 10 MG/2 ML VIAL IV PUSH ONE (21:30)
[2017-09-09] MEDS ORDERED: KETOROLAC TROMETHAMINE 30 MG/ML (IVP) VIAL IV PUSH ONE (21:30)
[2017-09-09] MEDS ORDERED: PIPERACIL-TAZO 4.5 GM PREMIX 100 ML IV ONE (21:30)
[2017-09-09 21:36] LABS: BANDS 10 % (0-6); METAMYELOCYTES 1 % (0-1); NEUTROPHIL # MANUAL DIFF 10.6 TH/MM3 (1.8-7.7); POLYS (SEG NEUTROPHILS) 69 % (16-70); WBC DIFF SAMPLE 100
[2017-09-09 21:37] LABS: DOHLE BODIES PRESENT (NONE SEEN); HEMO FLAGS AUTO DIFF; PLATELET COUNT 92 TH/MM3 (150-450); PLATELET ESTIMATE SMEAR LOW (NORMAL)
[2017-09-09 21:38] LABS: PLATELET MORPHOLOGY NORMAL (NORMAL); SCAN/DIFF FINAL DIFF MANUAL
[2017-09-09] MEDS ORDERED: VANCOMYCIN INJ 1,000 MG in SODIUM CHLOR 0.9% 250 ML INJ 250 ML IV ONE (21:45)
--- NOTE | 2017-09-09 21:56 | RADRPT ---
EXAM DATE/TIME: 09/09/2017 21:28 [facility] COMPARISON: No previous studies available for comparison. INDICATIONS : Right upper quadrant pain. MEDICAL HISTORY : Seizures. Anxiety. Depression. Substance abuse. SURGICAL HISTORY : section. [place] teeth removed. ENCOUNTER: Initial ACUITY: 1 day PAIN SCORE: 7/10 LOCATION: Right upper quadrant MEASUREMENTS: LIVER: 17.3 cm length COMMON DUCT: 3 mm RIGHT KIDNEY: 11.8 x 3.9 x 5.0 cm FINDINGS: LIVER: Normal echotexture without focal lesion or ductal dilatation. COMMON DUCT: No intraluminal mass or stone visualized. GALLBLADDER: Contains no stones, demonstrates no wall thickening or pericholecystic fluid. PANCREAS: The visualized portions are within normal limits. RIGHT KIDNEY: No evidence of hydronephrosis, stone, or mass. CONCLUSION: Normal examination for a patient of this age. Adam Moore MD on September 09, 2017 at 21:54 Board Certified Radiologist. This report was verified electronically.
--- NOTE | 2017-09-09 22:54 | RADRPT ---
EXAM DATE/TIME: 09/09/2017 21:51 [facility] COMPARISON: No previous studies available for comparison. INDICATIONS : Osteomyelitis. CONTRAST: 14 cc Omniscan (gadodiamide) IV MEDICAL HISTORY : None. SURGICAL HISTORY : section. ENCOUNTER: Initial ACUITY: 1 day PAIN SCORE: 3/10 LOCATION: Paraspinal TECHNIQUE: Multiplanar multisequence MRI of the thoracic spine was performed. FINDINGS: There is no evidence for osteomyelitis or epidural abscess. Normal alignment of the thoracic spine. I ncidental note made of a large right-sided perineural cyst at T11-T12 measuring up to 2.4 cm in lengt h and 1 cm in diameter. CONCLUSION: 1. Negative for osteomyelitis or epidural abscess which normal appearance of the spine. Incidental ri ght-sided perineural cyst at T11-12. Adam Moore MD on September 09, 2017 at 22:49 Board Certified Radiologist. This report was verified electronically.
--- NOTE | 2017-09-09 23:01 | RADRPT ---
EXAM DATE/TIME: 09/09/2017 21:51 [facility] COMPARISON: No previous studies available for comparison. INDICATIONS : Osteomyelitis. CONTRAST: 14 cc Omniscan (gadodiamide) IV MEDICAL HISTORY : None. SURGICAL HISTORY : section. ENCOUNTER: Initial ACUITY: 1 day PAIN SCORE: 3/10 LOCATION: Paraspinal TECHNIQUE: Multiplanar, multisequence MRI examination of the cervical spine was performed. FINDINGS: VERTEBRAE: Normal vertebral body height. Homogeneous marrow signal. ALIGNMENT: No evidence of subluxation. CORD: Normal configuration and signal. POST FOSSA: The cerebellar tonsils are normal in position. POST-CONTRAST: No abnormal areas of enhancement are seen. C2-C3: The thecal sac has a normal configuration. There is no evidence of disc herniation or spinal canal stenosis. The neural foramina are patent bilaterally. C3-C4: The thecal sac has a normal configuration. There is no evidence of disc herniation or spinal canal s tenosis. The neural foramina are patent bilaterally. C4-C5: The thecal sac has a normal configuration. There is no evidence of disc herniation or spinal canal s tenosis. The neural foramina are patent bilaterally. C5-C6: The thecal sac has a normal configuration. There is no evidence of disc herniation or spinal canal s tenosis. The neural foramina are patent bilaterally. C6-C7: The thecal sac has a normal configuration. There is no evidence of disc herniation or spinal canal s tenosis. The neural foramina are patent bilaterally. C7-T1: The thecal sac has a normal configuration. There is no evidence of disc herniation or spinal canal s tenosis. The neural foramina are patent bilaterally. CONCLUSION: 1. Exam within normal limits for age. Negative for osteomyelitis, discitis or evidence for epidural a bscess. Adam Moore MD on September 09, 2017 at 22:58 Board Certified Radiologist. This report was verified electronically.
[2017-09-09 23:02] VITALS: BP 96/53; PULSE 86; RESP 16; TEMP 98; O2SAT 99
--- NOTE | 2017-09-09 23:03 | RADRPT ---
EXAM DATE/TIME: 09/09/2017 21:51 [facility] COMPARISON: No previous studies available for comparison. INDICATIONS : Osteomyelitis. CONTRAST: 14 cc Omniscan (gadodiamide) IV MEDICAL HISTORY : None. SURGICAL HISTORY : section. ENCOUNTER: Initial ACUITY: 1 day PAIN SCORE: 3/10 LOCATION: Paraspinal TECHNIQUE: Multiplanar multisequence MRI of the lumbar spine was performed with and without contrast. FINDINGS: The most caudal appearing lumbar vertebra is numbered as L5. VERTEBRAE: Homogeneous signal. Normal alignment. CONUS: Normal level and configuration. POST CONTRAST: No abnormal areas of contrast enhancement are seen. T12-L1: The thecal sac has a normal diameter. No evidence of disc bulge or protrusion. The neural foramina are patent bilaterally. L1-L2: The thecal sac has a normal diameter. No evidence of disc bulge or protrusion. The neural foramina are patent bilaterally. L2-L3: The thecal sac has a normal diameter. No evidence of disc bulge or protrusion. The neural foramina are patent bilaterally. L3-L4: The thecal sac has a normal diameter. No evidence of disc bulge or protrusion. The neural foramina are patent bilaterally. L4-L5: The thecal sac has a normal diameter. No evidence of disc bulge or protrusion. The neural foramina are patent bilaterally. L5-S1: Small annular tear and disc protrusion. CONCLUSION: 1. Scolio tear and disc protrusion L5-S1 without stenosis. No abnormal enhancement. Negative for disc itis, osteomyelitis or epidural abscess. Adam Moore MD on September 09, 2017 at 22:59 Board Certified Radiologist. This report was verified electronically.
[2017-09-09] MEDS ORDERED: SODIUM CHLOR 0.9% 1000 ML INJ 100 ML IV ONE (23:39)
[2017-09-09] MEDS ORDERED: Vancomycin Consult Pharmacy 1 EA OTHER SCH (23:45)
[2017-09-09] MEDS ORDERED: SENNOSIDES 8.6 MG TAB PO PRN (23:45)
[2017-09-09] MEDS ORDERED: LACTULOSE SYRUP 20 GM/30 ML CUP PO PRN (23:45)
[2017-09-09] MEDS ORDERED: MAGNESIUM HYDROXIDE SUSP 30 ML CUP PO PRN (23:45)
[2017-09-09] MEDS ORDERED: BISACODYL 10 MG SUPP RECTAL PRN (23:45)
[2017-09-09] MEDS ORDERED: ACETAMINOPHEN 325 MG TAB PO PRN (23:45)
[2017-09-09] MEDS ORDERED: CHLORHEXIDINE GLUCONATE 2 % 1 PACK (2 CLOTHS) TOP PRN (23:45)
[2017-09-09] MEDS ORDERED: MORPHINE SULFATE 4 MG/ML INJ IV PUSH PRN (23:45)
[2017-09-09] MEDS ORDERED: ONDANSETRON HCL 4 MG/2 ML VIAL IV PUSH PRN (23:45)
[2017-09-09] MEDS ORDERED: MISCELLANEOUS NURSING INFORMATION XX SCH (23:45)
[2017-09-09] MEDS ORDERED: RESP: ALBUTEROL 2.5 MG/IPRATROPIUM 0.5 MG NEB (PRN) INH (23:45)
[2017-09-09] MEDS ORDERED: SODIUM CHLORIDE 0.9% FLUSH 10 ML FLUSH IV FLUSH PRN (23:45)
--- NOTE | 2017-09-09 23:48 | HHI.HP ---
[facility] Service Critical Care Medicine Primary Care Physician No Primary Care Physician Admission Diagnosis sepsis, hyperbilirubinemia, jaundice, IVDU Diagnosis: Travel History International Travel<30 Days: No Contact w/Intl Traveler <30 Da: No Traveled to Known Affected Are: No History of Present Illness 26-year-old female with history of IVDU presents for evaluation of generalized weakness, jaundice, and scleral icterus. Patient reports that for the last 2 days she has had decreased energy and has spent most of the day in bed. She reports feeling warm, however has not had any documented fevers. Her friend noticed that her skin in her eyes looked yellow today. She is complaining of diffuse body aches. She reports taking 2 Tylenol today and yesterday. She denies alcohol use. No abdominal pain. No known history of hepatitis. In the emergency department she experienced absent Seizure-Like episode that it last for about 20 seconds. Review of Systems Constitutional: COMPLAINS OF: Fatigue, Fever, Chills, Dizziness, Change in appetite, DENIES: Diaphoretic episodes, Weight gain, Weight loss, Night Sweats Endocrine: DENIES: Abnorml menstrual pattern, Heat/cold intolerance, Polydipsia , Polyuria, Polyphagia Eyes: DENIES: Blurred vision, Diplopia, Eye inflammation, Eye pain, Vision loss , Photosensitivity, Double Vision Ears, nose, mouth, throat: DENIES: Tinnitus, Hearing loss, Vertigo, Nasal discharge, Oral lesions, Throat pain, Hoarseness, Ear Pain, Running Nose, Epistaxis, Sinus Pain, Toothache, Odynophagia Respiratory: DENIES: Apneas, Cough, Snoring, Wheezing, Hemoptysis, Sputum production, Shortness of breath Cardiovascular: DENIES: Chest pain, Palpitations, Syncope, Dyspnea on Exertion , PND, Lower Extremity Edema, Orthopnea, Claudication Gastrointestinal: DENIES: Abdominal pain, Black stools, Bloody stools, Constipation, Diarrhea, Nausea, Vomiting, Difficulty Swallowing, Anorexia Genitourinary: DENIES: Abnormal vaginal bleeding, Dysmenorrhea, Dyspareunia, Sexual dysfunction, Urinary frequency, Urinary incontinence, Urgency, Hematuria , Dysuria, Nocturia, Vaginal discharge Musculoskeletal: COMPLAINS OF: Muscle aches, DENIES: Joint pain, Stiffness, Joint Swelling, Back pain, Neck pain Integumentary: DENIES: Abnormal pigmentation, Pruritus, Rash, Nail changes, Breast masses, Breast skin changes, Nipple discharge Hematologic/lymphatic: DENIES: Bruising, Lymphadenopathy Immunologic/allergic: DENIES: Eczema, Urticaria Neurologic: DENIES: Abnormal gait, Headache, Localized weakness, Paresthesias, Seizures, Speech Problems, Tremor, Poor Balance Psychiatric: DENIES: Anxiety, Confusion, Mood changes, Depression, Hallucinations, Agitation, Suicidal Ideation, Homicidal Ideation, Delusions Past Family Social History Allergies: Coded Allergies: promethazine (Unverified Allergy, Intermediate, HALUCINATIONS, 09/09/17) Past Medical History History of IV drug use Pancreatitis History of staph infection, however denies MRSA Past Surgical History [place] teeth Reported Medications Reported Meds & Active Scripts Active No Active Prescriptions or Reported Medications Active Ordered Medications Current Medications Medications (Trade) Dose Ordered Sig/Laurence Route PRN Reason Start Time Stop Time Status Last Admin Dose Admin Sodium Chloride 1,000 ml @ 124 mls/hr Q8H4M IV 09/09/17 23:39 Sodium Chloride (NS Flush) 2 ml UNSCH PRN IV FLUSH FLUSH AFTER USING IV ACCESS 09/09/17 23:45 Sodium Chloride (NS Flush) 2 ml BID IV FLUSH 09/10/17 09:00 Acetaminophen (Tylenol) 650 mg Q6H PRN PO PAIN 1-5 AND/OR FEVER >101F 09/09/17 23:45 Morphine Sulfate (Morphine Inj) 2 mg Q2H PRN IV PUSH PAIN SCALE 6 TO 10 09/09/17 23:45 Famotidine (Pepcid Inj) 20 mg Q12HR IV PUSH 09/10/17 09:00 Ondansetron HCl (Zofran Inj) 4 mg Q6H PRN IV PUSH NAUSEA OR VOMITING 09/09/17 23:45 Albuterol/ Ipratropium (Duoneb Neb) 1 ampule Q2HR NEB PRN INH WHEEZING 09/09/17 23:45 Miscellaneous Information 1 Q361D XX 09/09/17 23:45 Chlorhexidine Gluconate (Chlorhexidine 2% Cloth) 3 pack Taper DAILY@04 TOP 09/10/17 04:00 09/06/18 03:59 Chlorhexidine Gluconate (Chlorhexidine 2% Cloth) 3 pack UNSCH PRN TOP HYGIENIC CARE 09/09/17 23:45 Senna/Docusate Sodium (Mariluz-Colace) 1 tab BID PO 09/10/17 09:00 Magnesium Hydroxide (Milk Of Magnesia Liq) 30 ml Q12H PRN PO Mild constipation 09/09/17 23:45 Sennosides (Senokot) 17.2 mg Q12H PRN PO Moderate constipation 09/09/17 23:45 Bisacodyl (Dulcolax Supp) 10 mg DAILY PRN RECTAL SEVERE CONSITIPATION 09/09/17 23:45 Lactulose (Lactulose Liq) 30 ml DAILY PRN PO SEVERE CONSITIPATION 09/09/17 23:45 Pharmacy Profile Note 0 ml @ 0 mls/hr UNSCH OTHER 09/09/17 23:45 Piperacillin Sod/ Tazobactam Sod 100 ml @ 200 mls/hr Q6H IV 09/10/17 05:00 Sodium Chloride 1,000 ml @ 1,000 mls/hr Q1H ONCE IV 09/09/17 23:39 09/10/17 00:38 Sodium Chloride 1,000 ml @ 1,000 mls/hr Q1H ONCE IV 09/09/17 23:39 09/10/17 00:38 Vancomycin HCl 750 mg/Sodium Chloride 257.5 ml @ 250 mls/hr ONCE ONCE IV 09/10/17 01:00 09/10/17 02:01 Family History Mother from glioblastoma. Sister from glioblastoma in her 30s. Father is healthy. Social History Patient smoked one pack per day for the past 10 years. Patient says she has quit drinking for the past several months. Physical Exam Vital Signs Vital Signs Date Time Temp Pulse Resp B/P (MAP) Pulse Ox O2 Delivery O2 Flow Rate FiO2 09/09/17 23:02 98.0 86 16 96/53 (67) 99 Room Air 09/09/17 21:04 20 09/09/17 19:17 97.6 98 16 93/55 (68) 99 Room Air Physical Exam GENERAL: Well-nourished, well-developed patient. Lethargic SKIN: Warm and dry. HEAD: Normocephalic. EYES: No scleral icterus. No injection or drainage. NECK: Supple, trachea midline. No JVD or lymphadenopathy. CARDIOVASCULAR: Regular rate and rhythm without murmurs, gallops, or rubs. RESPIRATORY: Breath sounds equal bilaterally. No accessory muscle use. GASTROINTESTINAL: Abdomen soft, non-tender, nondistended. MUSCULOSKELETAL: No cyanosis, or edema. BACK: Nontender without obvious deformity. NEURO EXAM: Mental Status: The patient is lethargic but arousable and oriented to person, place, and time with normal speech. Cranial Nerves: Visual acuity intact bilaterally. Visual julien normal in all quadrants. Pupils are round, reactive to light. Extraocular movements are intact without ptosis. Hearing is normal bilaterally. Voice is normal. Tongue protrudes midline and moves symmetrically. Reflexes: Biceps, patellar, and Achilles are 2/4 bilaterally. No clonus. Laboratory Laboratory Tests Test 09/09/17 20:30 09/09/17 20:35 White Blood Count 13.2 Red Blood Count 4.00 Hemoglobin 12.9 Hematocrit 37.1 Mean Corpuscular Volume 92.7 Mean Corpuscular Hemoglobin 32.2 Mean Corpuscular Hemoglobin Concent 34.7 Red Cell Distribution Width 13.3 Platelet Count 92 Mean Platelet Volume 8.9 Neutrophils (%) (Auto) 79.5 Lymphocytes (%) (Auto) 12.5 Monocytes (%) (Auto) 7.5 Eosinophils (%) (Auto) 0.3 Basophils (%) (Auto) 0.2 Neutrophils # (Auto) 10.5 Lymphocytes # (Auto) 1.7 Monocytes # (Auto) 1.0 Eosinophils # (Auto) 0.0 Basophils # (Auto) 0.0 CBC Comment AUTO DIFF Differential Total Cells Counted 100 Neutrophils % (Manual) 69 Band Neutrophils % 10 Lymphocytes % 13 Monocytes % 7 Neutrophils # (Manual) 10.6 Metamyelocytes 1 Differential Comment FINAL DIFF MANUAL Dohle Bodies PRESENT Platelet Estimate LOW Platelet Morphology Comment NORMAL Prothrombin Time 14.0 Prothromb Time International Ratio 1.4 Activated Partial Thromboplast Time 31.7 Blood Urea Nitrogen 32 Creatinine 1.21 Random Glucose 108 Total Protein 6.7 Albumin 2.9 Calcium Level 8.3 Alkaline Phosphatase 174 Aspartate Amino Transf (AST/SGOT) 112 Alanine Aminotransferase (ALT/SGPT) 131 Total Bilirubin 7.1 Direct Bilirubin 5.5 Sodium Level 136 Potassium Level 3.4 Chloride Level 102 Carbon Dioxide Level 27.0 Anion Gap 7 Estimat Glomerular Filtration Rate 53 Total Creatine Kinase 26 Lipase 120 Human Chorionic Gonadotropin, Quant LESS THAN 1 Acetaminophen Level LESS THAN 2.0 Lactic Acid Level 1.3 Ammonia 18 Date/Time Source Procedure Growth Status 09/09/17 20:35 Blood Peripheral Aerobic Blood Culture Pending Received 09/09/17 20:35 Blood Peripheral Anaerobic Blood Culture Pending Received 09/09/17 20:30 Nasal Washing Influenza Types A,B Antigen (NIA) - Final NEGATIVE FOR FLU A AND B ANTIGEN.... Complete Result Diagram: 09/09/17202909/09/172029 Imaging Last 24 hours Impressions Chest X-Ray 09/09/171950 Signed Impressions: Service Date/Time: Saturday, September 09, 2017 20:09 - CONCLUSION: No acute disease. Adam Moore MD Septic Shock Reassessment Septic shock perfusion: reassessment completed Caprini VTE Risk Assessment Caprini VTE Risk Assessment: Mod/High Risk (score >= 2) Caprini Risk Assessment Model Point Value = 1 Point Value = 2 Point Value = 3 Point Value = 5 Age 41-60 Minor surgery BMI > 25 kg/m2 Swollen legs Varicose veins or History of unexplained or recurrent spontaneous Oral contraceptives or hormone replacement Sepsis (< 1 month) Serious lung disease, including pneumonia (< 1 month) Abnormal pulmonary function Acute myocardial infarction Congestive heart failure (< 1 month) History of inflammatory bowel disease Medical patient at bed rest Age 61-74 Arthroscopic surgery Major open surgery (> 45 min) Laparoscopic surgery (> 45 min) Malignancy Confined to bed (> 72 hours) Immobilizing plaster cast Central venous access Age >= 75 History of VTE Family history of VTE Factor V Leiden Prothrombin [id number] Lupus anticoagulant Anticardiolipin antibodies Elevated serum homocysteine Heparin-induced thrombocytopenia Other congenital or acquired thrombophilia Stroke (< 1 month) Elective arthroplasty Hip, pelvis, or leg fracture Acute spinal cord injury (< 1 month) Prophylaxis Regimen Total Risk Factor Score Risk Level Prophylaxis Regimen 0-1 Low Early ambulation 2 Moderate Order ONE of the following: *Sequential Compression Device (SCD) *Heparin 5000 units SQ BID 3-4 Higher Order ONE of the following medications: *Heparin 5000 units SQ TID *Enoxaparin/Lovenox 40 mg SQ daily (WT < 150 kg, CrCl > 30 mL/min) *Enoxaparin/Lovenox 30 mg SQ daily (WT < 150 kg, CrCl > 10-29 mL/min) *Enoxaparin/Lovenox 30 mg SQ BID (WT < 150 kg, CrCl > 30 mL/min) AND/OR *Sequential Compression Device (SCD) 5 or more Highest Order ONE of the following medications: *Heparin 5000 units SQ TID (Preferred with Epidurals) *Enoxaparin/Lovenox 40 mg SQ daily (WT < 150 kg, CrCl > 30 mL/min) *Enoxaparin/Lovenox 30 mg SQ daily (WT < 150 kg, CrCl > 10-29 mL/min) *Enoxaparin/Lovenox 30 mg SQ BID (WT < 150 kg, CrCl > 30 mL/min) AND *Sequential Compression Device (SCD) Assessment and Plan Assessment and Plan Early sepsis - Fevers with bandemia - History of IVDU - Panculture - Broad-spectrum antibiotic - 2-D echo - Infectious disease consultation Hepatitis/liver failure - Hyperbilirubinemia - Ultrasound-negative - Status panel Absence seizure - Strong family history of GBM - CT head - Ativan when necessary for seizures Acute kidney injury - IV fluid hydration - Series of creatinine and electrolytes - Electrolytes replace As per ICU protocol - Strict I's and O's DVT GI prophylaxis - Teds SCDs - Hold pharmacological DVT prophylaxis due to elevated INR due to liver disease - Pepcid Critical Care: The total critical care time was 35 minutes. Time to perform other separately billable procedures was not included in the critical care time. Mickey Olguin MD Sep 09, 2017 11:48 pm
[2017-09-10] VITALS (16 sets, daily range): BP systolic 91–120; BP diastolic 50–80; PULSE 56–88; RESP 12–22; TEMP 97.8–98.5; O2SAT 95–100
[2017-09-10] MEDS: SODIUM CHLOR 0.9% 1000 ML INJ 1,000 ML IV SCH ×3 (00:27→15:47)
[2017-09-10] MEDS ORDERED: VANCOMYCIN INJ 750 MG in SODIUM CHLOR 0.9% 250 ML INJ 250 ML IV ONE (01:00)
--- NOTE | 2017-09-10 02:10 | RADRPT ---
EXAM DATE/TIME: 09/10/2017 01:38 [place] COMPARISON: No previous studies available for comparison. INDICATIONS : Altered mental status. RADIATION DOSE: 36.10 CTDIvol (mGy) MEDICAL HISTORY : Substance abuse SURGICAL HISTORY : None. ENCOUNTER: Initial ACUITY: 1 day PAIN SCALE: 0/10 LOCATION: cranial TECHNIQUE: Multiple contiguous axial images were obtained of the head. Using automated exposure control and adj ustment of the mA and/or kV according to patient size, radiation dose was kept as low as reasonably a chievable to obtain optimal diagnostic quality images. DICOM format image data is available electro nically for review and comparison. FINDINGS: CEREBRUM: The ventricles are normal for age. No evidence of midline shift, mass lesion, hemorrhage or acute in farction. No extra-axial fluid collections are seen. POSTERIOR FOSSA: The cerebellum and brainstem are intact. The 4th ventricle is midline. The cerebellopontine angle i s unremarkable. EXTRACRANIAL: The visualized portion of the orbits is intact. SKULL: The calvaria is intact. No evidence of skull fracture. CONCLUSION: Normal examination. William Preston MD on September 10, 2017 at 2:08 Board Certified Radiologist. This report was verified electronically.
[2017-09-10 03:44] LABS: BLOOD, URINE NEG (NEG); GLUCOSE,URINE NEG (NEG); KETONE, URINE NEG (NEG); NITRITE,URINE NEG (NEG); SQUAMOUS EPITHELIAL CELL URINE 7 /hpf (0-5); URINE COLOR YELLOW (YELLW/STRAW)
[2017-09-10 03:49] LABS: COMMENT (UR) CATH-CULTURE IND; CULTURE IF INDICATED CATH CULTURE IND
[2017-09-10 03:54] LABS: BACTERIA, URINE RARE /hpf
[2017-09-10] MEDS ORDERED: CHLORHEXIDINE GLUCONATE 2 % 1 PACK (2 CLOTHS) TOP SCH (04:00)
[2017-09-10 05:51] LABS: BICARBONATE 23.6 MEQ/L (21.0-32.0); MAGNESIUM 1.9 MG/DL (1.5-2.5); POTASSIUM 3.3 MEQ/L (3.5-5.1)
[2017-09-10 05:55] LABS: CALCIUM-PROTEIN CORRECTED 7.8 MG/DL (8.5-10.1); TOTAL BILIRUBIN ADULT 4.2 MG/DL (0.2-1.0)
[2017-09-10] MEDS: PIPERACIL-TAZO 4.5 GM PREMIX 100 ML IV SCH ×3 (06:02→18:17)
[2017-09-10] MEDS ORDERED: POTASSIUM CHLOR 40 MEQ PREMIX 100 ML IV PRN ×2 (07:15)
[2017-09-10] MEDS ORDERED: POTASSIUM PHOSPHATE MONOBASIC 500 MG TAB PO PRN (07:15)
[2017-09-10] MEDS ORDERED: POTASSIUM PHOSPHATE MONOBASIC 500 MG TAB PO/TUBE PRN (07:15)
[2017-09-10] MEDS ORDERED: POTASSIUM CHLOR 20 MEQ PREMIX 100 ML IV PRN ×2 (07:15)
[2017-09-10] MEDS ORDERED: SODIUM PHOSPHATE INJ 30 MMOL in SODIUM CHLOR 0.9% 250 ML INJ 240 ML IV PRN (07:15)
[2017-09-10] MEDS ORDERED: MAGNESIUM OXIDE 400 MG TAB PO PRN (07:15)
[2017-09-10] MEDS ORDERED: POTASSIUM CHLORIDE 25 MEQ EFFERVESCENT TAB PO PRN (07:15)
[2017-09-10] MEDS ORDERED: MAGNESIUM SULFATE INJ 2 GM in SODIUM CHLORIDE 0.9% INJ 96 ML IV PRN (07:15)
[2017-09-10] MEDS ORDERED: MAGNESIUM SULFATE INJ 4 GM in SODIUM CHLORIDE 0.9% INJ 92 ML IV PRN (07:15)
[2017-09-10] MEDS ORDERED: POTASSIUM PHOSPHATE INJ 30 MMOL in SODIUM CHLOR 0.9% 250 ML INJ 250 ML IV PRN (07:15)
--- NOTE | 2017-09-10 07:23 | HHI.CCPN ---
Subjective Remarks/Hospital Course 26-year-old female with history of IVDU presents for evaluation of generalized weakness, jaundice, and scleral icterus. Patient reports that for the last 2 days she has had decreased energy and has spent most of the day in bed. She reports feeling warm, however has not had any documented fevers. Her friend noticed that her skin in her eyes looked yellow today. She is complaining of diffuse body aches. She reports taking 2 Tylenol today and yesterday. She denies alcohol use. No abdominal pain. No known history of hepatitis. In the emergency department she experienced absent Seizure-Like episode that it last for about 20 seconds. SUBJ 09/10: Lying in bed appears to be in [id number] distress. Complaints of bilateral upper chest pain and upper abdominal pain. Chest pain more pleuritic in nature and tender to touch. Lumbar MRI small annular tear and disc protrusion. GB US negative. Hepatitis panel pending. Bilirubin trending down from 7.1-4.2 today. 2D Echo pending. Will check bedside echo and also ordered EEG. Will need MRI of brain, if EEG negative given history of IV drug use Objective Vital Signs Date Time Temp Pulse Resp B/P (MAP) Pulse Ox O2 Delivery O2 Flow Rate FiO2 09/10/17 06:00 76 09/10/17 04:00 97.8 12 91/58 (69) 98 09/10/17 00:49 Room Air Intake and Output 09/10/17 09/10/17 09/11/17 08:00 16:00 00:00 Intake Total 1160 ml Output Total 300 ml Balance 860 ml Result Diagram: 09/09/17202909/10/17 0439 Other Results Microbiology Date/Time Source Procedure Growth Status 09/09/17 20:30 Nasal Washing Influenza Types A,B Antigen (NIA) - Final NEGATIVE FOR FLU A AND B ANTIGEN.... Complete Imaging Last 24 hours Impressions Chest X-Ray 09/09/171950 Signed Impressions: Service Date/Time: Saturday, September 09, 2017 20:09 - CONCLUSION: No acute disease. Adam Moore MD Objective Remarks GENERAL: Well-nourished, well-developed patient. Lethargic SKIN: Warm and dry. HEAD: Normocephalic. EYES: No scleral icterus. No injection or drainage. NECK: Supple, trachea midline. No JVD or lymphadenopathy. CARDIOVASCULAR: Regular rate and rhythm without murmurs, gallops, or rubs. RESPIRATORY: Breath sounds equal bilaterally. No accessory muscle use. Mild parasternal tenderness GASTROINTESTINAL: Abdomen soft, moderate to severe RUQ and epigastric tenderness MUSCULOSKELETAL: No cyanosis, or edema. BACK: Nontender without obvious deformity. NEURO EXAM: Mental Status: The patient is lethargic but arousable and oriented to person, place, and time with normal speech. Cranial Nerves: Visual acuity intact bilaterally. Visual julien normal in all quadrants. Pupils are round, reactive to light. Extraocular movements are intact without ptosis. Hearing is normal bilaterally. Voice is normal. Tongue protrudes midline and moves symmetrically. Reflexes: Biceps, patellar, and Achilles are 2/4 bilaterally. No clonus. A/P Assessment and Plan Sepsis - Fevers with bandemia - History of IVDU - F/u Panculture - Broad-spectrum antibiotic vancomycin and Zosyn - Will check bedside echo, Full Echo ordered - Infectious disease consultation ordered Hepatitis/liver failure/RUG and epigastric pain - Hyperbilirubinemia - Ultrasound-negative - Hepatitis panel pending - Consult GI Pleuritic chest pain: - Chest x-ray is negative - If persistent pain need CT chest to evaluate for septic emboli Probable Absence seizure - Strong family history of GBM - CT head negative - Check EEG - Mayt need MRI of brain - MRI spine negative for osteomyelitis, L5-S1 small annular tear with disc bulge. Conservative management with physical therapy - Ativan when necessary for seizures Acute kidney injury - IV fluid hydration - Series of creatinine and electrolytes - Electrolytes replace As per ICU protocol - Strict I's and O's DVT GI prophylaxis - Teds SCDs - Hold pharmacological DVT prophylaxis due to elevated INR due to liver disease. Repeat INR - Pepcid Critical Care: Level 3. Continue ICU care due to ongoing workup and risk of acute decompensation Doris Dumont MD Sep 10, 2017 07:23
[2017-09-10 08:24] LABS: HEMATOCRIT 29.4 % (35.0-46.0); MEAN CELL VOLUME 94.3 FL (80.0-100.0); MEAN CORPUSCULAR HEMOGLOBIN 33.3 PG (27.0-34.0); MEAN CORPUSCULAR HGB CONC 35.3 % (32.0-36.0); PLATELET COUNT 65 TH/MM3 (150-450); RED BLOOD COUNT 3.12 MIL/MM3 (4.00-5.30); RED CELL DISTRIBUTION WIDTH 13.9 % (11.6-17.2); WHITE BLOOD COUNT 5.7 TH/MM3 (4.0-11.0)
[2017-09-10 08:27] LABS: HEMO FLAGS AUTO DIFF
[2017-09-10] MEDS: SODIUM CHLORIDE 0.9% FLUSH 10 ML FLUSH IV FLUSH SCH ×2 (09:00→20:13)
[2017-09-10] MEDS: FAMOTIDINE 20 MG/2 ML VIAL IV PUSH SCH ×2 (09:00→20:13)
[2017-09-10] MEDS: DOCUSATE SODIUM 50 MG/SENNA 8.6 MG TAB PO SCH ×2 (09:00→20:13)
[2017-09-10 09:02] LABS: BANDS 15 % (0-6); BURR CELLS 1+ (NORMAL); NEUTROPHIL # MANUAL DIFF 4.5 TH/MM3 (1.8-7.7); PLATELET ESTIMATE SMEAR LOW (NORMAL); PLATELET MORPHOLOGY NORMAL (NORMAL); POLYS (SEG NEUTROPHILS) 64 % (16-70); SCAN/DIFF FINAL DIFF MANUAL; TOXIC GRANULATION 1+ (NORMAL); WBC DIFF SAMPLE 100
--- NOTE | 2017-09-10 09:30 | PD.CONS ---
HPI History of Present Illness This is a 26 year old female who presented to the ED for evaluation of generalized weakness and jaundice. Patient reported increased fatigue and diffuse body aches for 2 days. In the ED she had absent seizure like episode that lasted for about 20 seconds. Past medical history significant for IV drug use. Denies alcohol use. Denies history of hepatitis. GI was consulted for evaluation of elevated bilirubin and transaminitis. Gallbladder US 09/09/17 was normal. Today, patient reports upper abdominal pain. Denies nausea or vomiting. Denies diarrhea. Hepatitis panel is pending. Toxicology screen noted to be positive for amphetamines and cocaine. (Maritza Nicholson) PFSH Past Medical History IV drug use Pancreatitis History of staph infection Past Surgical History [place] teeth (Maritza Nicholson) Coded Allergies: promethazine (Unverified Allergy, Intermediate, HALUCINATIONS, 09/09/17) Medications Current Medications Medications (Trade) Dose Ordered Sig/Laurence Route PRN Reason Start Time Stop Time Status Last Admin Dose Admin Sodium Chloride 1,000 ml @ 124 mls/hr Q8H4M IV 09/09/17 23:39 09/10/17 00:27 Sodium Chloride (NS Flush) 2 ml UNSCH PRN IV FLUSH FLUSH AFTER USING IV ACCESS 09/09/17 23:45 Sodium Chloride (NS Flush) 2 ml BID IV FLUSH 09/10/17 09:00 Acetaminophen (Tylenol) 650 mg Q6H PRN PO PAIN 1-5 AND/OR FEVER >101F 09/09/17 23:45 Morphine Sulfate (Morphine Inj) 2 mg Q2H PRN IV PUSH PAIN SCALE 6 TO 10 09/09/17 23:45 Famotidine (Pepcid Inj) 20 mg Q12HR IV PUSH 09/10/17 09:00 Ondansetron HCl (Zofran Inj) 4 mg Q6H PRN IV PUSH NAUSEA OR VOMITING 09/09/17 23:45 Albuterol/ Ipratropium (Duoneb Neb) 1 ampule Q2HR NEB PRN INH WHEEZING 09/09/17 23:45 Miscellaneous Information 1 [id number] XX 09/09/17 23:45 Chlorhexidine Gluconate (Chlorhexidine 2% Cloth) 3 pack Taper DAILY@04 TOP 09/10/17 04:00 09/06/18 03:59 09/10/17 04:00 Chlorhexidine Gluconate (Chlorhexidine 2% Cloth) 3 pack UNSCH PRN TOP HYGIENIC CARE 09/09/17 23:45 Senna/Docusate Sodium (Mariluz-Colace) 1 tab BID PO 09/10/17 09:00 Magnesium Hydroxide (Milk Of Magnesia Liq) 30 ml Q12H PRN PO Mild constipation 09/09/17 23:45 Sennosides (Senokot) 17.2 mg Q12H PRN PO Moderate constipation 09/09/17 23:45 Bisacodyl (Dulcolax Supp) 10 mg DAILY PRN RECTAL SEVERE CONSITIPATION 09/09/17 23:45 Lactulose (Lactulose Liq) 30 ml DAILY PRN PO SEVERE CONSITIPATION 09/09/17 23:45 Pharmacy Profile Note 0 ml @ 0 mls/hr UNSCH OTHER 09/09/17 23:45 Piperacillin Sod/ Tazobactam Sod 100 ml @ 200 mls/hr Q6H IV 09/10/17 05:00 09/10/17 06:02 Potassium Chloride 100 ml @ 50 mls/hr Q2H PRN IV For Potassium 2.8 - 3.2 mEq/L 09/10/17 07:15 Potassium Chloride 100 ml @ 50 mls/hr Q2H PRN IV For Potassium 2.8 - 3.2 mEq/L 09/10/17 07:15 Potassium Bicarb/ Potassium Chloride (K-Lyte Cl Eff) 50 meq UNSCH PRN PO For Potassium 3.3 - 3.5 mEq/L 09/10/17 07:15 Potassium Chloride 100 ml @ 25 mls/hr UNSCH PRN IV For Potassium 3.3 - 3.5 mEq/L 09/10/17 07:15 Potassium Chloride 100 ml @ 50 mls/hr Q2H PRN IV For Potassium 3.3 - 3.5 mEq/L 09/10/17 07:15 Magnesium Sulfate 4 gm/Sodium Chloride 100 ml @ 50 mls/hr UNSCH PRN IV For Magnesium 0.9 - 1.1 mg/dL 09/10/17 07:15 Magnesium Oxide (Mag-Ox) 800 mg UNSCH PRN PO For Magnesium 1.2 - 1.6 mg/dL 09/10/17 07:15 Magnesium Sulfate 2 gm/Sodium Chloride 100 ml @ 50 mls/hr UNSCH PRN IV For Magnesium 1.2 - 1.6 mg/dL 09/10/17 07:15 Potassium Phosphate (K-Phos) 2,000 mg Q4H PRN PO For Phosphorus < 2.5 mg/dL 09/10/17 07:15 Sodium Phosphate 30 mmol/Sodium Chloride 250 ml @ 42 mls/hr UNSCH PRN IV For Phosphorus < 2.5 mg/dL 09/10/17 07:15 Potassium Phosphate (K-Phos) 2,000 mg UNSCH PRN PO/TUBE SEE LABEL COMMENTS 09/10/17 07:15 Potassium Phosphate 30 mmol/ Sodium Chloride 260 ml @ 42 mls/hr UNSCH PRN IV SEE LABEL COMMENTS 09/10/17 07:15 Family History Mother, from glioblastoma Father, healthy Sister, from glioblastoma in her 30s Social History Tobacco, 1 PPD x 10 years ETOH, denies, quit 3 months ago Illicit Drugs, toxicology screen + amphetamines and cocaine (Maritza Nicholson) Review of Systems Constitutional: COMPLAINS OF: Fatigue, Fever, Chills, Dizziness, Change in appetite, DENIES: Diaphoretic episodes, Weight gain, Weight loss, Night Sweats Endocrine: DENIES: Polydipsia, Polyuria Eyes: DENIES: Blurred vision, Photosensitivity, Double Vision Ears, nose, mouth, throat: DENIES: Hearing loss, Vertigo, Oral lesions, Throat pain, Hoarseness Respiratory: DENIES: Cough, Wheezing, Hemoptysis, Sputum production, Shortness of breath Cardiovascular: DENIES: Chest pain, Palpitations, Syncope, Lower Extremity Edema, Orthopnea, Claudication Gastrointestinal: COMPLAINS OF: Abdominal pain, DENIES: Black stools, Bloody stools, Constipation, Diarrhea, Nausea, Vomiting, Difficulty Swallowing, Anorexia, Odynophagia, Swelling of Abdomen, Heartburn, Hematemesis Genitourinary: DENIES: Urinary frequency, Urinary incontinence, Urgency, Hematuria, Dysuria, Nocturia Musculoskeletal: COMPLAINS OF: Muscle aches, DENIES: Joint pain, Stiffness, Joint Swelling, Back pain, Neck pain Integumentary: DENIES: Abnormal pigmentation, Nail changes, Pruritus, Rash, Jaundice Hematologic/lymphatic: DENIES: Bruising, Lymphadenopathy Immunologic/allergic: DENIES: Eczema, Urticaria Neurologic: DENIES: Abnormal gait, Headache, Localized weakness, Paresthesias Psychiatric: DENIES: Anxiety, Confusion, Mood changes, Depression, Agitation, Suicidal Ideation (Maritza Nicholson) GI Exam Vitals I&O Vital Signs Date Time Temp Pulse Resp B/P (MAP) Pulse Ox O2 Delivery O2 Flow Rate FiO2 09/10/17 06:00 76 09/10/17 04:00 76 09/10/17 04:00 97.8 75 12 91/58 (69) 98 09/10/17 02:00 81 09/10/17 02:00 78 09/10/17 01:57 98.1 74 12 91/50 (64) 100 09/10/17 00:49 97.8 88 16 99/55 (70) 99 Room Air 09/10/17 00:42 20 09/09/17 23:02 98.0 86 16 96/53 (67) 99 Room Air 09/09/17 21:04 20 09/09/17 19:17 97.6 98 16 93/55 (68) 99 Room Air I/O 09/09/17 09/09/17 09/09/17 09/10/17 09/10/17 09/10/17 07:00 15:00 23:00 07:00 15:00 23:00 Intake Total 1160 ml Output Total 300 ml Balance 860 ml Intake Oral 200 ml IV Total 960 ml Output Urine Total 300 ml Imaging Last Impressions Head CT 09/10/17 0027 Signed Impressions: Service Date/Time: Sunday, September 10, 2017 01:38 - CONCLUSION: Normal examination. William Preston MD Chest X-Ray 09/09/171950 Signed Impressions: Service Date/Time: Saturday, September 09, 2017 20:09 - CONCLUSION: No acute disease. Adam Moore MD Thoracic Spine MRI 09/09/17 0000 Signed Impressions: Service Date/Time: Saturday, September 09, 2017 21:51 - CONCLUSION: 1. Negative for osteomyelitis or epidural abscess which normal appearance of the spine. Incidental right-sided perineural cyst at T11-12. Adam Moore MD Lumbar Spine MRI 09/09/17 0000 Signed Impressions: Service Date/Time: Saturday, September 09, 2017 21:51 - CONCLUSION: 1. Scolio tear and disc protrusion L5-S1 without stenosis. No abnormal enhancement. Negative for discitis, osteomyelitis or epidural abscess. Adam Moore MD Gall Bladder Ultrasound 09/09/17 0000 Signed Impressions: Service Date/Time: Saturday, September 09, 2017 21:28 - CONCLUSION: Normal examination for a patient of this age. Adam Moore MD Cervical Spine MRI 09/09/17 0000 Signed Impressions: Service Date/Time: Saturday, September 09, 2017 21:51 - CONCLUSION: 1. Exam within normal limits for age. Negative for osteomyelitis, discitis or evidence for epidural abscess. Adam Moore MD Laboratory Test 09/09/17 20:30 09/09/17 20:35 09/10/17 00:25 09/10/17 01:45 White Blood Count 13.2 TH/MM3 Red Blood Count 4.00 MIL/MM3 Hemoglobin 12.9 GM/DL Hematocrit 37.1 % Mean Corpuscular Volume 92.7 FL Mean Corpuscular Hemoglobin 32.2 PG Mean Corpuscular Hemoglobin Concent 34.7 % Red Cell Distribution Width 13.3 % Platelet Count 92 TH/MM3 Mean Platelet Volume 8.9 FL Neutrophils (%) (Auto) 79.5 % Lymphocytes (%) (Auto) 12.5 % Monocytes (%) (Auto) 7.5 % Eosinophils (%) (Auto) 0.3 % Basophils (%) (Auto) 0.2 % Neutrophils # (Auto) 10.5 TH/MM3 Lymphocytes # (Auto) 1.7 TH/MM3 Monocytes # (Auto) 1.0 TH/MM3 Eosinophils # (Auto) 0.0 TH/MM3 Basophils # (Auto) 0.0 TH/MM3 CBC Comment AUTO DIFF Differential Total Cells Counted 100 Neutrophils % (Manual) 69 % Band Neutrophils % 10 % Lymphocytes % 13 % Monocytes % 7 % Neutrophils # (Manual) 10.6 TH/MM3 Metamyelocytes 1 % Differential Comment FINAL DIFF MANUAL Dohle Bodies PRESENT Platelet Estimate LOW Platelet Morphology Comment NORMAL Prothrombin Time 14.0 SEC Prothromb Time International Ratio 1.4 RATIO Activated Partial Thromboplast Time 31.7 SEC Blood Urea Nitrogen 32 MG/DL Creatinine 1.21 MG/DL Random Glucose 108 MG/DL Total Protein 6.7 GM/DL Albumin 2.9 GM/DL Calcium Level 8.3 MG/DL Alkaline Phosphatase 174 U/L Aspartate Amino Transf (AST/SGOT) 112 U/L Alanine Aminotransferase (ALT/SGPT) 131 U/L Total Bilirubin 7.1 MG/DL Direct Bilirubin 5.5 MG/DL Sodium Level 136 MEQ/L Potassium Level 3.4 MEQ/L Chloride Level 102 MEQ/L Carbon Dioxide Level 27.0 MEQ/L Anion Gap 7 MEQ/L Estimat Glomerular Filtration Rate 53 ML/MIN Total Creatine Kinase 26 U/L Lipase 120 U/L Human Chorionic Gonadotropin, Quant LESS THAN 1 MIU/ML Acetaminophen Level LESS THAN 2.0 MCG/ML Lactic Acid Level 1.3 mmol/L 0.9 mmol/L Ammonia 18 MCMOL/L Nasal Screen MRSA (PCR) MRSA DETECTED Test 09/10/17 02:10 09/10/17 04:39 09/10/17 08:10 Urine Color YELLOW Urine Turbidity CLEAR Urine pH 7.0 Urine Specific [place] 1.016 Urine Protein NEG mg/dL Urine Glucose (UA) NEG mg/dL Urine Ketones NEG mg/dL Urine Occult Blood NEG Urine Nitrite NEG Urine Bilirubin MOD Urine Urobilinogen 2.0 MG/DL Urine Leukocyte Esterase NEG Urine WBC 6 /hpf Urine Squamous Epithelial Cells 7 /hpf Urine Bacteria RARE /hpf Microscopic Urinalysis Comment CATH-CULTURE IND Urine Opiates Screen NEG Urine Barbiturates Screen NEG Urine Amphetamines Screen POS Urine Benzodiazepines Screen NEG Urine Cocaine Screen POS Urine Cannabinoids Screen NEG Blood Urea Nitrogen 22 MG/DL Creatinine 0.90 MG/DL Random Glucose 92 MG/DL Total Protein 5.1 GM/DL Albumin 2.3 GM/DL Calcium Level 6.8 MG/DL Phosphorus Level 2.2 MG/DL Magnesium Level 1.9 MG/DL Alkaline Phosphatase 140 U/L Aspartate Amino Transf (AST/SGOT) 79 U/L Alanine Aminotransferase (ALT/SGPT) 98 U/L Total Bilirubin 4.2 MG/DL Sodium Level 144 MEQ/L Potassium Level 3.3 MEQ/L Chloride Level 113 MEQ/L Carbon Dioxide Level 23.6 MEQ/L Anion Gap 7 MEQ/L Estimat Glomerular Filtration Rate 75 ML/MIN Protein Corrected Calcium 7.8 MG/DL Thyroid Stimulating Hormone 3rd Gen 1.610 uIU/ML White Blood Count 5.7 TH/MM3 Red Blood Count 3.12 MIL/MM3 Hemoglobin 10.4 GM/DL Hematocrit 29.4 % Mean Corpuscular Volume 94.3 FL Mean Corpuscular Hemoglobin 33.3 PG Mean Corpuscular Hemoglobin Concent 35.3 % Red Cell Distribution Width 13.9 % Platelet Count 65 TH/MM3 Mean Platelet Volume 9.3 FL CBC Comment AUTO DIFF Differential Total Cells Counted 100 Neutrophils % (Manual) 64 % Band Neutrophils % 15 % Lymphocytes % 16 % Monocytes % 5 % Neutrophils # (Manual) 4.5 TH/MM3 Differential Comment FINAL DIFF MANUAL Toxic Granulation 1+ Platelet Estimate LOW Platelet Morphology Comment NORMAL Hi Cells 1+ Lactic Acid Level 1.0 mmol/L Date/Time Source Procedure Growth Status 09/10/17 00:20 Blood Peripheral Aerobic Blood Culture Pending Received 09/10/17 00:20 Blood Peripheral Anaerobic Blood Culture Pending Received 09/09/17 20:30 Nasal Washing Influenza Types A,B Antigen (NIA) - Final NEGATIVE FOR FLU A AND B ANTIGEN.... Complete 09/10/17 02:10 Urine Random Urine Urine Culture Pending Received Physical Examination HEENT: Normocephalic; atraumatic; no sclera icterus NECK: Neck is supple, no JVD, no lymphadenopathy. CHEST: CTA CARDIAC: RRR with no murmur gallop or rubs. ABDOMEN: Soft, nondistended, moderate TTP at RUQ and epigastric region; bowel sounds are present in all four quadrants. EXTREMITIES: No clubbing, cyanosis, or edema. SKIN: No rash NETWORK LIAISON: No focal deficits; alert and oriented x 3. (Maritza Nicholson) Assessment and Plan Plan ASSESSMENT: - Abdominal pain, RUQ and epigastric tenderness to palpation. Hyperbilirubinemia , Total Bilirubin 7.1 on admission. T. Bilirubin trending down, 4.2 today. Transaminitis, AST 112, ALT 131 on admission. AST 79, ALT 98 today. Hepatitis panel pending. [facility] 09/09/17--negative. IV drug use. Toxicology screen positive for amphetamines and cocaine. - Sepsis. IV drug use. Afebrile. Vanco and Zosyn. ID consulted. Blood culture pending. PLAN: - Await Hepatitis panel results - Monitor labs - Supportive care - Further recommendations to follow based on results of above Patient seen and examined by Dr. Burt and myself and this note is written on his behalf. (Maritza Nicholson) Plan Patient was seen and examined, agree with above-noted and plan, patient has acute elevation of liver function doesn't jaundice with abdominal pain in the right upper quadrant most likely consistent with acute hepatitis secondary to IV drug abuse multiple substance and possibly new sexual partner, we will see what the workup for etiology will reveal meanwhile continue supportive care and follow-up liver function test,I had a discussion with the patient about cessation of old substance abuse including tobacco marijuana and drugs (Miguel Angel Burt MD) Maritza Nicholson Sep 10, 2017 09:30 Miguel Angel Burt MD Sep 10, 2017 14:08
--- NOTE | 2017-09-10 11:06 | PD.ID.CON ---
History of Present Illness Service ID Consult Requested By Reason for Consult Evaluation and Mment of possible Endocarditis, and acute hepatitis. Primary Care Physician No Primary Care Physician Diagnoses: History of Present Illness is a 26-year-old female with past medical history of intravenous drug abuse who uses heroin every 2 days, prior history of skin infections with staph, who is currently admitted for evaluation of generalized weakness, yellow discoloration of eyes and urine. Patient reports that she noticed a yellowish discoloration approximately 2 days prior to admission. She reports that she had low energy and spent most of the day in bed. She reports feeling warm but did not check her temperature denies any chills or night sweats. Her boyfriend noticed that her skin and eyes looked yellow and brought her to the hospital. Upon admission she is complaining of diffuse body aches. She reports taking 2 Tylenol the last 2 days. She denies any alcohol use. She denies any abdominal pain, nausea or vomiting. She denies any prior history of hepatitis and upon review of records on her prior admission in May her hepatitis screen was negative. There is no HIV screen on file but she reports having an HIV screening done as outpatient which was negative. Upon admission patient was tachycardic with heart rate 98, hypothermic with temperature 97.6, hypotensive and due to suspicion of sepsis and endocarditis patient was admitted to the ICU. Patient has had a sepsis workup which includes blood cultures, urine cultures which are no growth so far. Patient had complained of diffuse body aches and backache as well as neck pain on admission and underwent an MRI spine L-spine and T-spine all of which are negative for osteomyelitis or epidural abscess. Chest x-ray on admission was negative. The CT of the head was done which was negative. GI has been consulted and workup has been initiated by them as well. Infectious disease is consulted for evaluation and management of possible endocarditis and acute hepatitis. Review of Systems ROS Limitations: Poor Historian Constitutional: COMPLAINS OF: Fever, Change in appetite, DENIES: Diaphoretic episodes, Fatigue, Weight gain, Weight loss, Chills, Dizziness, Night Sweats Endocrine: DENIES: Abnorml menstrual pattern, Heat/cold intolerance, Polydipsia , Polyuria, Polyphagia Eyes: DENIES: Blurred vision, Diplopia, Eye inflammation, Eye pain, Vision loss , Photosensitivity, Double Vision Ears, nose, mouth, throat: DENIES: Tinnitus, Hearing loss, Vertigo, Nasal discharge, Oral lesions, Throat pain, Hoarseness, Ear Pain, Running Nose, Epistaxis, Sinus Pain, Toothache, Odynophagia Respiratory: COMPLAINS OF: Cough, DENIES: Apneas, Snoring, Wheezing, Hemoptysis , Sputum production, Shortness of breath Cardiovascular: DENIES: Chest pain, Palpitations, Syncope, Dyspnea on Exertion , PND, Lower Extremity Edema, Orthopnea, Claudication Gastrointestinal: DENIES: Abdominal pain, Black stools, Bloody stools, Constipation, Diarrhea, Nausea, Vomiting, Difficulty Swallowing, Anorexia Genitourinary: DENIES: Abnormal vaginal bleeding, Dysmenorrhea, Dyspareunia, Sexual dysfunction, Urinary frequency, Urinary incontinence, Urgency, Hematuria , Dysuria, Nocturia, Vaginal discharge Musculoskeletal: DENIES: Joint pain, Muscle aches, Stiffness, Joint Swelling, Back pain, Neck pain Integumentary: DENIES: Abnormal pigmentation, Pruritus, Rash, Nail changes, Breast masses, Breast skin changes, Nipple discharge Hematologic/lymphatic: DENIES: Bruising, Lymphadenopathy Immunologic/allergic: DENIES: Eczema, Urticaria Neurologic: DENIES: Abnormal gait, Headache, Localized weakness, Paresthesias, Seizures, Speech Problems, Tremor, Poor Balance Psychiatric: DENIES: Anxiety, Confusion, Mood changes, Depression, Hallucinations, Agitation, Suicidal Ideation, Homicidal Ideation, Delusions Except as stated in HPI: all other systems reviewed are Neg Past Family Social History Allergies: Coded Allergies: promethazine (Unverified Allergy, Intermediate, HALUCINATIONS, 09/09/17) Past Medical History History of IV drug use Pancreatitis History of staph infection, however denies MRSA Past Surgical History Flushing teeth Reported Medications Reported Meds & Active Scripts Active No Active Prescriptions or Reported Medications Active Ordered Medications Current Medications Medications (Trade) Dose Ordered Sig/Laurence Route Start Time Stop Time Status Last Admin Sodium Chloride 1,000 ml @ 124 mls/hr Q8H4M IV 09/09/17 23:39 09/10/17 00:27 (NS Flush) 2 ml UNSCH PRN IV FLUSH 09/09/17 23:45 (NS Flush) 2 ml BID IV FLUSH 09/10/17 09:00 (Tylenol) 650 mg Q6H PRN PO 09/09/17 23:45 (Morphine Inj) 2 mg Q2H PRN IV PUSH 09/09/17 23:45 (Pepcid Inj) 20 mg Q12HR IV PUSH 09/10/17 09:00 (Zofran Inj) 4 mg Q6H PRN IV PUSH 09/09/17 23:45 (Duoneb Neb) 1 ampule Q2HR NEB PRN INH 09/09/17 23:45 Miscellaneous Information 1 Q361D XX 09/09/17 23:45 (Chlorhexidine 2% Cloth) 3 pack Taper DAILY@04 TOP 09/10/17 04:00 09/06/18 03:59 09/10/17 04:00 (Chlorhexidine 2% Cloth) 3 pack UNSCH PRN TOP 09/09/17 23:45 (Mariluz-Colace) 1 tab BID PO 09/10/17 09:00 (Milk Of Magnesia Liq) 30 ml Q12H PRN PO 09/09/17 23:45 (Senokot) 17.2 mg Q12H PRN PO 09/09/17 23:45 (Dulcolax Supp) 10 mg DAILY PRN RECTAL 09/09/17 23:45 (Lactulose Liq) 30 ml DAILY PRN PO 09/09/17 23:45 Pharmacy Profile Note 0 ml @ 0 mls/hr UNSCH OTHER 09/09/17 23:45 Piperacillin Sod/ Tazobactam Sod 100 ml @ 200 mls/hr Q6H IV 09/10/17 05:00 09/10/17 06:02 Potassium Chloride 100 ml @ 50 mls/hr Q2H PRN IV 09/10/17 07:15 Potassium Chloride 100 ml @ 50 mls/hr Q2H PRN IV 09/10/17 07:15 (K-Lyte Cl Eff) 50 meq UNSCH PRN PO 09/10/17 07:15 Potassium Chloride 100 ml @ 25 mls/hr UNSCH PRN IV 09/10/17 07:15 Potassium Chloride 100 ml @ 50 mls/hr Q2H PRN IV 09/10/17 07:15 Magnesium Sulfate 4 gm/Sodium Chloride 100 ml @ 50 mls/hr UNSCH PRN IV 09/10/17 07:15 (Mag-Ox) 800 mg UNSCH PRN PO 09/10/17 07:15 Magnesium Sulfate 2 gm/Sodium Chloride 100 ml @ 50 mls/hr UNSCH PRN IV 09/10/17 07:15 (K-Phos) 2,000 mg Q4H PRN PO 09/10/17 07:15 Sodium Phosphate 30 mmol/Sodium Chloride 250 ml @ 42 mls/hr UNSCH PRN IV 09/10/17 07:15 (K-Phos) 2,000 mg UNSCH PRN PO/TUBE 09/10/17 07:15 Potassium Phosphate 30 mmol/ Sodium Chloride 260 ml @ 42 mls/hr UNSCH PRN IV 09/10/17 07:15 Family History reviewed and NC Social History No alcohol Smokes 1ppd IVDA heroin every 2 days. Drug screen also positive for cocaine and amphetamines. Single. Has been to the prison. Works in [employer] at [employer]. Physical Exam Vital Signs Vital Signs Date Time Temp Pulse Resp B/P (MAP) Pulse Ox O2 Delivery O2 Flow Rate FiO2 09/10/17 08:00 65 09/10/17 07:00 98.5 65 18 96/51 (66) 96 09/10/17 06:00 76 09/10/17 04:00 76 09/10/17 04:00 97.8 75 12 91/58 (69) 98 09/10/17 02:00 81 09/10/17 02:00 78 09/10/17 01:57 98.1 74 12 91/50 (64) 100 09/10/17 00:49 97.8 88 16 99/55 (70) 99 Room Air 09/10/17 00:42 20 09/09/17 23:02 98.0 86 16 96/53 (67) 99 Room Air 09/09/17 21:04 20 09/09/17 19:17 97.6 98 16 93/55 (68) 99 Room Air Physical Exam GENERAL: This is a well-nourished, well-developed patient, in no apparent distress. SKIN: No rashes, ecchymoses or lesions. Cool and dry. Track bowman visible in bilateral AC fossa area. HEAD: Atraumatic. Normocephalic. No temporal or scalp tenderness. EYES: Pupils equal round and reactive. Extraocular motions intact. No scleral icterus. No injection or drainage. ENT: Nose without bleeding, purulent drainage or septal hematoma. Throat without erythema, tonsillar hypertrophy or exudate. Uvula midline. Airway patent. NECK: Trachea midline. Supple, nontender, no meningeal signs. CARDIOVASCULAR: Regular rate and rhythm without murmurs. RESPIRATORY: Clear to auscultation. Breath sounds equal bilaterally. No wheezes , rales, or rhonchi. GASTROINTESTINAL: Abdomen soft, diffuse tenderness mostly epigastric and RUQ area. MUSCULOSKELETAL: Extremities without clubbing, cyanosis, or edema. NEUROLOGICAL: Awake and alert. Cranial nerves II through XII intact. Motor and sensory grossly within normal limits. Five out of 5 muscle strength in all muscle groups. Normal speech. Psych cooperative IV line sites with no e.o infection. Laboratory Laboratory Tests Test 09/09/17 20:30 09/09/17 20:35 09/10/17 00:25 09/10/17 01:45 White Blood Count 13.2 Red Blood Count 4.00 Hemoglobin 12.9 Hematocrit 37.1 Mean Corpuscular Volume 92.7 Mean Corpuscular Hemoglobin 32.2 Mean Corpuscular Hemoglobin Concent 34.7 Red Cell Distribution Width 13.3 Platelet Count 92 Mean Platelet Volume 8.9 Neutrophils (%) (Auto) 79.5 Lymphocytes (%) (Auto) 12.5 Monocytes (%) (Auto) 7.5 Eosinophils (%) (Auto) 0.3 Basophils (%) (Auto) 0.2 Neutrophils # (Auto) 10.5 Lymphocytes # (Auto) 1.7 Monocytes # (Auto) 1.0 Eosinophils # (Auto) 0.0 Basophils # (Auto) 0.0 CBC Comment AUTO DIFF Differential Total Cells Counted 100 Neutrophils % (Manual) 69 Band Neutrophils % 10 Lymphocytes % 13 Monocytes % 7 Neutrophils # (Manual) 10.6 Metamyelocytes 1 Differential Comment FINAL DIFF MANUAL Dohle Bodies PRESENT Platelet Estimate LOW Platelet Morphology Comment NORMAL Prothrombin Time 14.0 Prothromb Time International Ratio 1.4 Activated Partial Thromboplast Time 31.7 Blood Urea Nitrogen 32 Creatinine 1.21 Random Glucose 108 Total Protein 6.7 Albumin 2.9 Calcium Level 8.3 Alkaline Phosphatase 174 Aspartate Amino Transf (AST/SGOT) 112 Alanine Aminotransferase (ALT/SGPT) 131 Total Bilirubin 7.1 Direct Bilirubin 5.5 Sodium Level 136 Potassium Level 3.4 Chloride Level 102 Carbon Dioxide Level 27.0 Anion Gap 7 Estimat Glomerular Filtration Rate 53 Total Creatine Kinase 26 Lipase 120 Human Chorionic Gonadotropin, Quant LESS THAN 1 Acetaminophen Level LESS THAN 2.0 Lactic Acid Level 1.3 0.9 Ammonia 18 Nasal Screen MRSA (PCR) MRSA DETECTED Test 09/10/17 02:10 09/10/17 04:39 09/10/17 08:10 Urine Color YELLOW Urine Turbidity CLEAR Urine pH 7.0 Urine Specific [place] 1.016 Urine Protein NEG Urine Glucose (UA) NEG Urine Ketones NEG Urine Occult Blood NEG Urine Nitrite NEG Urine Bilirubin MOD Urine Urobilinogen 2.0 Urine Leukocyte Esterase NEG Urine WBC 6 Urine Squamous Epithelial Cells 7 Urine Bacteria RARE Microscopic Urinalysis Comment CATH-CULTURE IND Urine Opiates Screen NEG Urine Barbiturates Screen NEG Urine Amphetamines Screen POS Urine Benzodiazepines Screen NEG Urine Cocaine Screen POS Urine Cannabinoids Screen NEG Blood Urea Nitrogen 22 Creatinine 0.90 Random Glucose 92 Total Protein 5.1 Albumin 2.3 Calcium Level 6.8 Phosphorus Level 2.2 Magnesium Level 1.9 Alkaline Phosphatase 140 Aspartate Amino Transf (AST/SGOT) 79 Alanine Aminotransferase (ALT/SGPT) 98 Total Bilirubin 4.2 Sodium Level 144 Potassium Level 3.3 Chloride Level 113 Carbon Dioxide Level 23.6 Anion Gap 7 Estimat Glomerular Filtration Rate 75 Protein Corrected Calcium 7.8 Thyroid Stimulating Hormone 3rd Gen 1.610 White Blood Count 5.7 Red Blood Count 3.12 Hemoglobin 10.4 Hematocrit 29.4 Mean Corpuscular Volume 94.3 Mean Corpuscular Hemoglobin 33.3 Mean Corpuscular Hemoglobin Concent 35.3 Red Cell Distribution Width 13.9 Platelet Count 65 Mean Platelet Volume 9.3 CBC Comment AUTO DIFF Differential Total Cells Counted 100 Neutrophils % (Manual) 64 Band Neutrophils % 15 Lymphocytes % 16 Monocytes % 5 Neutrophils # (Manual) 4.5 Differential Comment FINAL DIFF MANUAL Toxic Granulation 1+ Platelet Estimate LOW Platelet Morphology Comment NORMAL Hi Cells 1+ Lactic Acid Level 1.0 Date/Time Source Procedure Growth Status 09/10/17 00:20 Blood Peripheral Aerobic Blood Culture Pending Received 09/10/17 00:20 Blood Peripheral Anaerobic Blood Culture Pending Received 09/09/17 20:30 Nasal Washing Influenza Types A,B Antigen (NIA) - Final NEGATIVE FOR FLU A AND B ANTIGEN.... Complete 09/10/17 02:10 Urine Random Urine Urine Culture Pending Received Result Diagram: 09/10/17 0810 09/10/17 0439 Imaging Last Impressions Head CT 09/10/17 0027 Signed Impressions: Service Date/Time: Sunday, September 10, 2017 01:38 - CONCLUSION: Normal examination. William Preston MD Chest X-Ray 09/09/171950 Signed Impressions: Service Date/Time: Saturday, September 09, 2017 20:09 - CONCLUSION: No acute disease. Adam Moore MD Thoracic Spine MRI 09/09/17 0000 Signed Impressions: Service Date/Time: Saturday, September 09, 2017 21:51 - CONCLUSION: 1. Negative for osteomyelitis or epidural abscess which normal appearance of the spine. Incidental right-sided perineural cyst at T11-12. Adam Moore MD Lumbar Spine MRI 09/09/17 0000 Signed Impressions: Service Date/Time: Saturday, September 09, 2017 21:51 - CONCLUSION: 1. Scolio tear and disc protrusion L5-S1 without stenosis. No abnormal enhancement. Negative for discitis, osteomyelitis or epidural abscess. Adam Moore MD Gall Bladder Ultrasound 09/09/17 0000 Signed Impressions: Service Date/Time: Saturday, September 09, 2017 21:28 - CONCLUSION: Normal examination for a patient of this age. Adam Moore MD Cervical Spine MRI 09/09/17 0000 Signed Impressions: Service Date/Time: Saturday, September 09, 2017 21:51 - CONCLUSION: 1. Exam within normal limits for age. Negative for osteomyelitis, discitis or evidence for epidural abscess. Adam Moore MD Assessment and Plan Assessment and Plan Sepsis present on admission Possible endocarditis and an IV drug abuser Pleuritic chest pain: Rule out septic emboli Acute elevated liver enzymes: Acute hepatitis, sepsis. ? Gu[place] syndrome given h/o STDs. Acute renal failure prerenal, sepsis Hypoalbuminemia: Poor nutrition, possible HIV related Thrombocytopenia: Sepsis, hepatitis C Recommendations: Continue Zosyn IV and empiric coverage for possible Pseudomonas in an IV drug abuser Continue vancomycin IV target trough 15-[address] chest abdomen pelvis to rule out disseminated infection Follow 2-D echo. If has persistent bacteremia may need SHA in the future to be decided based on blood cultures. Patient was recently treated for gonorrhea. Does not appear to be reliable to recheck GC and chlamydia. Check RPR Check HIV antibody screen Follow hepatitis panel. Contact isolation till hepatitis panel back. Check with ID MD or infection control. If acutely infectious phase may need continuing isolation. Follow cultures Follow clinically I will be OOT from 09/11/2017 to 10/08/2017. Other ID MDs covering for me check with call center. Shanelle Canales MD Sep 10, 2017 11:06
[2017-09-10] MEDS ORDERED: DIATRIZOATE MEGLUM/DIATRIZOATE SOD 9 ML CUP PO ONE (12:13)
[2017-09-10 13:35] LABS: AUTOMATED NEUTROPHIL # 5.8 TH/MM3 (1.8-7.7); BASOPHIL % 0.2 % (0.0-2.0); EOSINOPHIL # 0.1 TH/MM3 (0-0.4); EOSINOPHIL % 0.8 % (0.0-4.0); HEMATOCRIT 29.7 % (35.0-46.0); LYMPH % 13.4 % (9.0-44.0); MEAN CELL VOLUME 93.9 FL (80.0-100.0); MEAN CORPUSCULAR HEMOGLOBIN 33.3 PG (27.0-34.0); MEAN CORPUSCULAR HGB CONC 35.4 % (32.0-36.0); MONO % 6.3 % (0.0-8.0); NEUT % 79.3 % (16.0-70.0); PLATELET COUNT 72 TH/MM3 (150-450); RED BLOOD COUNT 3.16 MIL/MM3 (4.00-5.30); RED CELL DISTRIBUTION WIDTH 13.7 % (11.6-17.2); WHITE BLOOD COUNT 7.3 TH/MM3 (4.0-11.0)
[2017-09-10 13:40] LABS: HEMO FLAGS AUTO DIFF
[2017-09-10 13:41] LABS: INTERNATIONAL NORMALIZED RATIO 1.1 RATIO; PROTHROMBIN TIME - PATIENT 11.3 SEC (9.8-11.6)
[2017-09-10] MEDS ORDERED: VANCOMYCIN 1,000 MG/NS 250 ML IV SCH ×2 (14:00)
[2017-09-10 14:32] LABS: BANDS 13 % (0-6); NEUTROPHIL # MANUAL DIFF 6.1 TH/MM3 (1.8-7.7); POLYS (SEG NEUTROPHILS) 71 % (16-70); WBC DIFF SAMPLE 100
[2017-09-10 14:33] LABS: PLATELET ESTIMATE SMEAR LOW (NORMAL); PLATELET MORPHOLOGY NORMAL (NORMAL); SCAN/DIFF FINAL DIFF MANUAL; TOXIC GRANULATION 1+ (NORMAL)
[2017-09-10 14:44] LABS: CHLAMYDIA PCR NOT DETECTED (NOT DETECT); NEISSERIA PCR NOT DETECTED (NOT DETECT)
--- NOTE | 2017-09-10 16:39 | ECHRPT ---
Indication: endocarditis CONCLUSIONS The left ventricular systolic function is normal with an estimated ejection fraction in the range of 60-65%. Left ventricular diastolic function parameters are normal. Trace mitral valve regurgitation. No evidence of endocarditis BP: 91 / 58 HR: 69 Rhythm: Sinus MEASUREMENTS (Male / Female) Normal Values Technical Quality:Good 2D ECHO LV Diastolic Diameter PLAX 5.3 cm 4.2 - 5.9 / 3.9 - 5.3 cm LV Systolic Diameter PLAX 3.3 cm IVS Diastolic Thickness 0.9 cm 0.6 - 1.0 / 0.6 - 0.9 cm LVPW Diastolic Thickness 0.9 cm 0.6 - 1.0 / 0.6 - 0.9 cm LV Relative Wall Thickness 0.3 RV Internal Dim ED PLAX 2.3 cm LVOT Diameter 2.1 cm LA Systolic Diameter LX 3.8 cm 3.0 - 4.0 / 2.7 - 3.8 cm LV Ejection Fraction MOD 4C 62.9 % LV Cardiac Index MOD 4C 1496.1 cm/minm LV Ejection Fraction 4C AL 63.9 % LV Cardiac Index 4C AL 1568.8 cm/minm M-MODE Aortic Root Diameter MM 3.0 cm AV Cusp Separation MM 2.1 cm DOPPLER AV Peak Velocity 124.0 cm/s AV Peak Gradient 6.2 mmHg LVOT Peak Velocity 96.7 cm/s LVOT Peak Gradient 3.7 mmHg AV Area Cont Eq pk 2.7 cm LV E' Lateral Velocity 11.7 cm/s LV E' Septal Velocity 8.7 cm/s PV Peak Velocity 109.0 cm/s PV Peak Gradient 4.8 mmHg FINDINGS LEFT VENTRICLE The left ventricular systolic function is normal with an estimated ejection fraction in the range of 60-65%. Normal left ventricular size. Wall thickness is normal. No regional wall motion abnormalities are present. Left ventricular diastolic function parameters are normal. RIGHT VENTRICLE Normal right ventricular size and systolic function. LEFT ATRIUM The left atrial size is normal. RIGHT ATRIUM The right atrial size is normal. ATRIAL SEPTUM Normal atrial septal thickness without atrial level shunting by limited color doppler interrogation. AORTA The aortic root and proximal ascending aorta are normal in size on limited imaging. MITRAL VALVE Structurally normal mitral valve. Trace mitral valve regurgitation. No mitral valve stenosis. AORTIC VALVE Probable trileaflet aortic valve. No aortic valve stenosis or regurgitation. TRICUSPID VALVE Structurally normal tricuspid valve. No tricuspid valve stenosis or regurgitation. PULMONARY VALVE The pulmonary valve is not well visualized. VESSELS The inferior vena cava is normal in size. PERICARDIUM No pericardial effusion. Vaughn Teague DO (Electronically Signed) Final Date:10 September 2017 16:38
[2017-09-10] MEDS ORDERED: IOHEXOL 350 MG/ML 10 ML VIAL (for RAD DIAG) IVCONTRAST ONE (17:07)
--- NOTE | 2017-09-10 17:17 | RADRPT ---
EXAM DATE/TIME: 09/10/2017 16:36 [facility] COMPARISON: No previous studies available for comparison. INDICATIONS : Bilateral upper quadrant pain. IV CONTRAST: 68 cc Omnipaque 350 (iohexol) IV ; Cumulative dose for multiple exams. ORAL CONTRAST: Prescribed oral contrast ingested. RADIATION DOSE: 12.90 CTDIvol (mGy) ; Combined studies - Thorax/Abdomen/Pelvis MEDICAL HISTORY : None Intravenous drug abuse. SURGICAL HISTORY : section. ENCOUNTER: Initial ACUITY: 2 days PAIN SCALE: 5/10 LOCATION: Bilateral upper quadrant TECHNIQUE: Volumetric scanning of the abdomen was performed. Using automated exposure control and adjustment of the mA and/or kV according to patient size, radiation dose was kept as low as reasonably achievable to obtain optimal diagnostic quality images. DICOM format image data is available electronically for review and comparison. FINDINGS: LOWER LUNGS: Mild bibasilar atelectasis. LIVER: Liver appears to be enlarged measuring 20.0 cm in length. No dilated biliary ducts are demonstrated. The portal system is patent. There is some mild nonspecific edema in the lexus hepatis. The gallbladd er is contracted. SPLEEN: The spleen is enlarged measuring 15.8 cm. No focal defects are demonstrated. PANCREAS: Within normal limits. KIDNEYS: Normal in size and shape. There is no mass, stone, or hydronephrosis. ADRENAL GLANDS: Within normal limits. AORTA/RETROPERITONEAL: There is no aneurysm or lymphadenopathy. BOWEL/MESENTERY: The stomach and visualized small and large bowel demonstrate no abnormality. No inflammatory changes. ABDOMINAL WALL: Within normal limits. MUSCULOSKELETAL: Within normal limits for patient age. POST CONTRAST: No abnormal areas of enhancement are seen. CONCLUSION: There is evidence of a hepatosplenomegaly. The gallbladder is contracted and there is no biliary trac t obstruction. Mild nonspecific edema in the lexus hepatis. Matteo Burleson MD on September 10, 2017 at 17:12 Board Certified Radiologist. This report was verified electronically.
--- NOTE | 2017-09-10 17:22 | RADRPT ---
EXAM DATE/TIME: 09/10/2017 16:36 [facility] COMPARISON: No previous studies available for comparison. INDICATIONS : Bilateral upper chest pain. IV CONTRAST: 68 cc Omnipaque 350 (iohexol) IV ; Cumulative dose for multiple exams. RADIATION DOSE: 12.90 CTDIvol (mGy) ; Combined studies - Thorax/Abdomen/Pelvis MEDICAL HISTORY : Hyperbilirubinemia, sepsis, heroin and marijuana abuse. SURGICAL HISTORY : section. ENCOUNTER: Initial ACUITY: 2 days PAIN SCALE: 5/10 LOCATION: Bilateral chest TECHNIQUE: Volumetric scanning of the chest was performed. Using automated exposure control and adjustment of t he mA and/or kV according to patient size, radiation dose was kept as low as reasonably achievable to obtain optimal diagnostic quality images. DICOM format image data is available electronically for review and comparison. Follow-up recommendations for detected pulmonary nodules are based at a minimum on nodule size and pa tient risk factors according to Fleischner Society Guidelines. FINDINGS: LUNGS: There is mild hazy density at the posterior lower lobes bilaterally likely related to atelectasis. PLEURA: There are minimal bilateral pleural effusions. MEDIASTINUM: The heart and great vessels demonstrate no acute abnormality. There is no mediastinal or hilar lymph adenopathy. AXILLAE: Within normal limits. No lymphadenopathy. SKELETAL: Within normal limits for patient age. MISCELLANEOUS: The visualized upper abdominal organs demonstrate no acute abnormality. CONCLUSION: Minimal effusions and suspected accompanying atelectasis of the lower lobes. Tim Williamson MD on September 10, 2017 at 17:18 Board Certified Radiologist. This report was verified electronically.
[2017-09-11] VITALS (9 sets, daily range): BP systolic 114–120; BP diastolic 66–75; PULSE 56–99; RESP 14–18; TEMP 98.4
[2017-09-11] MEDS: PIPERACIL-TAZO 4.5 GM PREMIX 100 ML IV SCH ×2 (00:10→07:00)
[2017-09-11 04:08] LABS: BASOPHIL % 0.2 % (0.0-2.0); EOSINOPHIL # 0.1 TH/MM3 (0-0.4); EOSINOPHIL % 2.2 % (0.0-4.0); HEMATOCRIT 31.3 % (35.0-46.0); LYMPH % 24.7 % (9.0-44.0); LYMPHOCYTE # 1.5 TH/MM3 (1.0-4.8); MEAN CELL VOLUME 94.3 FL (80.0-100.0); MEAN CORPUSCULAR HEMOGLOBIN 32.8 PG (27.0-34.0); MEAN CORPUSCULAR HGB CONC 34.8 % (32.0-36.0); MONO % 5.1 % (0.0-8.0); NEUT % 67.8 % (16.0-70.0); PLATELET COUNT 87 TH/MM3 (150-450); RED BLOOD COUNT 3.32 MIL/MM3 (4.00-5.30); RED CELL DISTRIBUTION WIDTH 13.7 % (11.6-17.2); WHITE BLOOD COUNT 5.9 TH/MM3 (4.0-11.0)
[2017-09-11 04:12] LABS: PROTHROMBIN TIME - PATIENT 10.5 SEC (9.8-11.6)
[2017-09-11 04:18] LABS: HEMO FLAGS AUTO DIFF
[2017-09-11 04:21] LABS: ANION GAP 7 MEQ/L (5-15); AST (GOT) 86 U/L (15-37); BICARBONATE 22.5 MEQ/L (21.0-32.0); BLOOD UREA NITROGEN 8 MG/DL (7-18); CHLORIDE 115 MEQ/L (98-107); GLOMERULAR FILTRATION RATE 100 ML/MIN (>89); MAGNESIUM 1.5 MG/DL (1.5-2.5); SODIUM (NA) 144 MEQ/L (136-145)
[2017-09-11 04:38] LABS: ALKALINE PHOSPHATASE 178 U/L (45-117); ALT (GPT) 112 U/L (10-53); FREE T4 1.06 NG/DL (0.76-1.46); TOTAL BILIRUBIN ADULT 1.2 MG/DL (0.2-1.0)
--- NOTE | 2017-09-11 05:45 | MG ---
cc: EMILIANO SULTANA Lab No: Date: 09/10/2017 Age: 27 Sex: F Race: DATE OF [address] Dumont MEDICAL HISTORY 1. Admitted for generalized weakness, jaundice and scleral icterus, body aches and chest pain. 2. Positive for cocaine and amphetamines. 3. History of IV drug use. 4. Anxiety, depression. 5. Staph infections. 6. One seizure in 2003. 7. Tobacco abuse. 8. Substance abuse. 9. Heroin and marijuana use. 10. Caffeine use. 11. Fatigue. MEDICATIONS Piperacillin. Vancomycin. DESCRIPTION The background activity is 8-9 Hz alpha superimposed by excess beta activity. The EEG recording is contaminated by excessive movement artifact. Hyperventilation was omitted. Photic stimulation did not elicit a driving response. There were no electrographic seizures or epileptiform discharges noted. INTERPRETATION This is an awake and drowsy EEG. Beta activity is a nonspecific finding that may be related to a medication adverse effect like benzos or barbiturates. There were no electrographic seizures or epileptiform discharges. Clinical correlation is recommended. MD GENOVVEA Fulton/BERTHA /10:31 PM /5:35 AM [id number]
[2017-09-11 06:53] LABS: ACANTHOCYTES OCC (NORMAL); BURR CELLS 1+ (NORMAL); PLATELET ESTIMATE SMEAR LOW (NORMAL); PLATELET MORPHOLOGY NORMAL (NORMAL); SCAN/DIFF AUTO DIFF CONFIRMED
[2017-09-11] MEDS: FAMOTIDINE 20 MG/2 ML VIAL IV PUSH SCH (08:06)
[2017-09-11] MEDS: SODIUM CHLORIDE 0.9% FLUSH 10 ML FLUSH IV FLUSH SCH (08:07)
[2017-09-11] MEDS: DOCUSATE SODIUM 50 MG/SENNA 8.6 MG TAB PO SCH (08:07)
[2017-09-11] MEDS ORDERED: PHARMACY ORDERED LAB ONE (13:45)
[2017-09-11 16:15] LABS: HEMOGLOBIN A1a 1.2 %; HEMOGLOBIN A1b 0.7 %; HEMOGLOBIN Ao 86.4 %; HEMOGLOBIN F 0.7 %; HEMOGLOBIN LA1C 2.1 %; HEMOGLOBIN P3 3.4 %
== END 2017-09-11 09:45 | disposition left against medical advice (07) | DRG 872 ==
LOC: NEPD 19:14 → NEDA 23:40 → HIMW 09-10 01:50
PROVIDERS: ADMIT Internal Medicine Critical Care Medicine; ATTEND Internal Medicine Critical Care Medicine
DX: A41.9 Sepsis, unspecified organism (principal); N17.9 Acute kidney failure, unspecified; D69.6 Thrombocytopenia, unspecified; R56.9 Unspecified convulsions; B17.10 Acute hepatitis C without hepatic coma; E88.09 Other disorders of plasma-protein metabolism, not elsewhere classified; K72.90 Hepatic failure, unspecified without coma; M51.26 Other intervertebral disc displacement, lumbar region; R07.81 Pleurodynia; F11.10 Opioid abuse, uncomplicated; F12.10 Cannabis abuse, uncomplicated; F32.9 Major depressive disorder, single episode, unspecified; F41.9 Anxiety disorder, unspecified; Z72.0 Tobacco use; Z80.8 Family history of malignant neoplasm of other organs or systems
CPT/HCPCS: 70450; 71010; 71260; 72156; 72157; 72158; 74160; 76705; 80053; 80074; 80307; 81001; 82140; 82248; 82550; 83036; 83605; 83690; 83735; 84100; 84439; 84443; 84702; 85007; 85025; 85027; 85610; 85730; 86592; 86703; 87040; 87086; 87491; 87591; 87641; 87804; 93306; 95819; 96361; 96365; 96368; 96375; A9579; J1885; J2543; J2765; J3370; J7030; J7050; Q9963; Q9967

== ENCOUNTER 2018-07-15 16:11 | Inpatient (IN) ==
[2018-07-15] MEDS ORDERED: Acetaminophen 325 MG Tablet PO ONE (16:36)
--- NOTE | 2018-07-15 16:50 | XR ---
EXAM DATE: 07/15/2018 4:36 PM EDT AGE/SEX: 27 years / Female INDICATIONS: Fever CLINICAL DATA: This is the patient's initial encounter. Patient reports that signs and symptoms have been present for 2 weeks and indicates a pain score of 0/10. MEDICAL/SURGICAL HISTORY: None. None. COMPARISON: [facility] [place], CHEST SINGLE AP, 09/09/2017. . FINDINGS: No new focal pleural or parenchymal opacities. The cardiomediastinal contours are unremarkable. Oss eous structures are intact. CONCLUSION: 1. No acute abnormality or significant interval change. Electronically signed by: Melchor Landaverde MD 07/15/2018 4:49 PM EDT
[2018-07-15 17:23] LABS: Baso % (Auto) 0.2 % (0.0-2.0); Eos % (Auto) 0.1 % (0.0-4.0); Hematocrit 34.6 % (35.0-46.0); Hemoglobin 11.9 gm/dL (11.6-15.3); Lymph # (Auto) 1.1 th/mm3 (1.0-4.8); Lymph % (Auto) 16.3 % (9.0-44.0); Mean Corpuscular HGB Conc 34.3 % (32.0-36.0); Mean Corpuscular Hemoglobin 31.9 pg (27.0-34.0); Mean Corpuscular Volume 92.9 fL (80.0-100.0); Mean Platelet Volume 7.2 fL (7.0-11.0); Mono # (Auto) 0.7 th/mm3 (0.0-0.9); Mono % (Auto) 10.6 % (0.0-8.0); Neut # (Auto) 4.8 th/mm3 (1.8-7.7); Neut % (Auto) 72.8 % (16.0-70.0); Platelet Count 180 th/mm3 (150-450); Red Blood Count 3.72 mil/mm3 (4.00-5.30); Red Cell Distribution Width 13.3 % (11.6-17.2); White Blood Count 6.7 th/mm3 (4.0-11.0)
--- NOTE | 2018-07-15 17:40 | ED ---
HPI General Chief complaint: Urogenital-Female Stated complaint: UTI, bladder infection Time Seen by Provider: 07/15/18 16:35 Source: patient Mode of arrival: ambulatory Limitations: no limitations History of Present Illness HPI Narrative: 27-year-old female with a history of IV drug use presents to the emergency department for evaluation of left sided abdominal pain that has been persistent for 2 weeks. Patient states that she went to [facility] was diagnosed with pyelonephritis and urinary tract infection. She says that she took all of the prescribed antibiotics which she believes was ciprofloxacin. She says that she does not feel any better and decided to come in today for evaluation. MD Complaint: Reports "UTI" Onset (ago): week(s) Female Urogenital Radiation: Reports L Flank Severity: moderate Quality: Dull and Aching Duration: constant Relieving factors: none Exacerbating factors: none Urinary symptoms: Reports Flank Pain Vaginal discharge: Reports other (denies) Related Data Home Medications Medication Instructions Recorded Confirmed No Known Home Medications 07/15/18 07/15/18 Allergies Allergy/AdvReac Type Severity Reaction Status Date / Time promethazine Allergy Intermediate HALUCINATIO Verified 07/15/18 17:03 NS Review of Systems ROS: all other systems reviewed are negative [facility] Social History Social History Substance History: No History of Abuse Smoking Status: Never smoker How Often Do You Have a Drink Containing Alcohol: Never Recent Travel in [place] within the Last 8 Weeks: No Recent Out of Country Travel within the Last 8 Weeks: No Immunization History Tetanus Immunization: Unsure Exam Narrative Exam Narrative: GENERAL: WD, WN in NAD SKIN: Focused skin assessment warm/dry. HEAD: Atraumatic. Normocephalic. EYES: Pupils equal and round. No scleral icterus. No injection or drainage. ENT: No nasal bleeding or discharge. Mucous membranes pink and moist. NECK: Trachea midline. No JVD. No lymphadenopathy CARDIOVASCULAR: Regular rate and rhythm. No murmur appreciated. RESPIRATORY: No accessory muscle use. Clear to auscultation. Breath sounds equal bilaterally. GASTROINTESTINAL: Abdomen soft, mild TTP to left upper quadrant and left flank. MUSCULOSKELETAL: No obvious deformities. No clubbing. No cyanosis. No edema. NEUROLOGICAL: Awake and alert. No obvious cranial nerve deficits. Motor grossly within normal limits. Normal speech. PSYCHIATRIC: Appropriate mood and affect; insight and judgment normal. Course Initial Documented Vital Signs Temperature 100.7 F H 07/15/18 16:29 Pulse Rate 114 H 07/15/18 16:29 Respiratory Rate 20 07/15/18 16:29 Blood Pressure 116/69 07/15/18 16:29 Pulse Oximetry 100 07/15/18 16:29 Last Documented Vital Signs Temperature 100.1 F H 07/15/18 17:30 Pulse Rate 99 H 07/15/18 17:30 Respiratory Rate 18 07/15/18 17:30 Blood Pressure 109/69 07/15/18 17:30 Pulse Oximetry 97 07/15/18 17:30 Medical Decision Making CHARITO Attestation CHARITO supervised visit: Yes Attestation: I, Dr. Gillis, have reviewed the advance practice practitioner's documentation and am in agreement, met with the patient face to face, made the diagnosis, and the medical decision making was done by me. *My assessment and Findings: Pyelonephritis that failed outpatient treatment. 27yo F with IVDA here with left sided flank pain. Pt with fever of 100.7F and tachycardic at 114bpm. Temperature and heart rate improved with acetaminophen. Labs reviewed, no leukocytosis. BMP unremarkable. Normal creatinine. negative. UA showed WBC 13. CT a/p small renal carbuncle on left kidney with perinephric stranding about the left kidney. Pt given ceftriaxone. Discussed with nephrology Dr. Stoll and he agrees with medicine admission and said we can consult IR to see if they can drain it. Discussed with Dr. Orr and accepted to her service. [facility] Narrative Medical decision making narrative: @[id number] partners mention to me that patient wants to give acute to a friend who was just inside the [place] body area. When the nurse checked on the patient, patient was not back into her room so a search was initiated as patient continued to have an IV in her arm. At this time, I am unsure if patient left AMA. Medical Screen Exam Complete: Yes Emergency Medical Condition: Yes Differential Diagnosis Differential Diagnosis: pyelonephritis, sepsis, urosepsis Lab Data Result diagrams: 07/15/18 16:45 07/15/18 16:45 POC Results POC Urine Results Negative Lab Results 07/15/18 07/15/18 07/15/18 Range/Units 16:45 16:45 16:45 WBC 6.7 (4.0-11.0) th/mm3 RBC 3.72 L (4.00-5.30) mil/mm3 Hgb 11.9 (11.6-15.3) gm/dL Hct 34.6 L (35.0-46.0) % MCV 92.9 (80.0-100.0) fL MCH 31.9 (27.0-34.0) pg MCHC 34.3 (32.0-36.0) % RDW 13.3 (11.6-17.2) % Plt Count 180 (150-450) th/mm3 MPV 7.2 (7.0-11.0) fL Neut % (Auto) 72.8 H (16.0-70.0) % Lymph % (Auto) 16.3 (9.0-44.0) % [place] % (Auto) 10.6 H (0.0-8.0) % Eos % (Auto) 0.1 (0.0-4.0) % Baso % (Auto) 0.2 (0.0-2.0) % Neut # (Auto) 4.8 (1.8-7.7) th/mm3 Lymph # (Auto) 1.1 (1.0-4.8) th/mm3 [place] # (Auto) 0.7 (0.0-0.9) th/mm3 Eos # (Auto) 0.0 (0.0-0.4) th/mm3 Baso # (Auto) 0.0 (0.0-0.2) th/mm3 WBC Differential . Differential Comment Auto diff final PT (9.8-11.6) sec INR Ratio APTT (24.3-30.1) sec Sodium 134 L (136-145) meq/L Potassium 3.7 (3.5-5.1) meq/L Chloride 100 (98-107) meq/L Carbon Dioxide 27.9 (21.0-32.0) meq/L Anion Gap 6 (5-15) meq/L BUN 12 (7-18) mg/dL Creatinine 0.91 (0.50-1.00) mg/dL Estimated GFR 74 L (>89) mL/min Random Glucose 125 H (74-106) mg/dL Lactic Acid 0.9 (0.4-2.0) mmol/L Calcium 8.5 (8.5-10.1) mg/dL Total Bilirubin 0.6 (0.2-1.0) mg/dL AST 16 (15-37) U/L ALT 24 (10-53) U/L Alkaline Phosphatase 108 (45-117) U/L Total Protein 7.7 (6.4-8.2) g/dL Albumin 3.2 L (3.4-5.0) g/dL Beta HCG, Qual (0-5) mIU/mL Urine Color (Yellw/Straw) Urine Clarity (Clear) Urine pH (5.0-8.5) Ur Specific [place] (1.002-1.035) Urine Protein (Neg-Trace) mg/dL Urine Glucose (UA) (Negative) mg/dL Urine Ketones (Negative) mg/dL Urine Occult Blood (Negative) Urine Nitrate (Negative) Urine Bilirubin (Negative) Urine Urobilinogen (Less than 2) mg/dL Ur Leukocyte Esterase (Negative) Urine RBC (0-3) /hpf Urine WBC (0-5) /hpf Ur Squamous Epith Cells (0-5) /hpf Urine Mucus (Occasional) /lpf Micro UA Comment Ur Microscopic Review Urine Culture Comments 07/15/18 07/15/18 07/15/18 Range/Units 16:45 17:36 19:51 WBC (4.0-11.0) th/mm3 RBC (4.00-5.30) mil/mm3 Hgb (11.6-15.3) gm/dL Hct (35.0-46.0) % MCV (80.0-100.0) fL MCH (27.0-34.0) pg MCHC (32.0-36.0) % RDW (11.6-17.2) % Plt Count (150-450) th/mm3 MPV (7.0-11.0) fL Neut % (Auto) (16.0-70.0) % Lymph % (Auto) (9.0-44.0) % [place] % (Auto) (0.0-8.0) % Eos % (Auto) (0.0-4.0) % Baso % (Auto) (0.0-2.0) % Neut # (Auto) (1.8-7.7) th/mm3 Lymph # (Auto) (1.0-4.8) th/mm3 [place] # (Auto) (0.0-0.9) th/mm3 Eos # (Auto) (0.0-0.4) th/mm3 Baso # (Auto) (0.0-0.2) th/mm3 WBC Differential Differential Comment PT 11.5 (9.8-11.6) sec INR 1.1 Ratio APTT 28.9 (24.3-30.1) sec Sodium (136-145) meq/L Potassium (3.5-5.1) meq/L Chloride (98-107) meq/L Carbon Dioxide (21.0-32.0) meq/L Anion Gap (5-15) meq/L BUN (7-18) mg/dL Creatinine (0.50-1.00) mg/dL Estimated GFR (>89) mL/min Random Glucose (74-106) mg/dL Lactic Acid (0.4-2.0) mmol/L Calcium (8.5-10.1) mg/dL Total Bilirubin (0.2-1.0) mg/dL AST (15-37) U/L ALT (10-53) U/L Alkaline Phosphatase (45-117) U/L Total Protein (6.4-8.2) g/dL Albumin (3.4-5.0) g/dL Beta HCG, Qual Less than 1.0 (0-5) mIU/mL Urine Color Straw (Yellw/Straw) Urine Clarity Clear (Clear) Urine pH 6.0 (5.0-8.5) Ur Specific [place] 1.021 (1.002-1.035) Urine Protein Negative (Neg-Trace) mg/dL Urine Glucose (UA) Negative (Negative) mg/dL Urine Ketones Negative (Negative) mg/dL Urine Occult Blood Small H (Negative) Urine Nitrate Negative (Negative) Urine Bilirubin Negative (Negative) Urine Urobilinogen Less than 2 (Less than 2) mg/dL Ur Leukocyte Esterase Small H (Negative) Urine RBC 1 (0-3) /hpf Urine WBC 13 H (0-5) /hpf Ur Squamous Epith Cells 3 (0-5) /hpf Urine Mucus Few H (Occasional) /lpf Micro UA Comment Culture indicated Ur Microscopic Review Not Reportable Urine Culture Comments Culture indicated Imaging Data Radiologist's impression: Chest X-Ray 07/15/18 16:36 CONCLUSION: 1. No acute abnormality or significant interval change. Abdomen/Pelvis CT 07/15/18 18:14 CONCLUSION: 1. Developing small apparent renal carbuncle on the left with perinephric stranding about the left kidney. 2. There is no obstruction. Discharge Plan Discharge Disposition Patient Disposition: 30 Still Patient Discharge Condition Condition: Stable Discharge Details Diagnosis: Abscess of left kidney Physicians Team ED Provider: Precious Gillis ED Midlevel Provider: Kari Sanches Primary Care Provider: Primary Care Kay Newton Attending Provider: Stella Orr Status ED Status: Admitted Patient
[2018-07-15 17:49] LABS: Albumin 3.2 g/dL (3.4-5.0); Anion Gap 6 meq/L (5-15); Aspartate Aminotransferase 16 U/L (15-37); Blood Urea Nitrogen 12 mg/dL (7-18); Calcium 8.5 mg/dL (8.5-10.1); Carbon Dioxide 27.9 meq/L (21.0-32.0); Chloride 100 meq/L (98-107); Glomerular Filtration Rate 74 mL/min (>89); Glucose,Random 125 mg/dL (74-106); Potassium 3.7 meq/L (3.5-5.1); Sodium 134 meq/L (136-145)
[2018-07-15 17:51] LABS: Alanine Aminotransferase 24 U/L (10-53)
[2018-07-15 17:52] LABS: Alkaline Phosphatase 108 U/L (45-117); Total Protein 7.7 g/dL (6.4-8.2)
[2018-07-15 18:07] LABS: Activated Partial Thrombo Time 28.9 sec (24.3-30.1); INR 1.1 Ratio; Prothrombin Time 11.5 sec (9.8-11.6)
--- NOTE | 2018-07-15 19:26 | CT ---
EXAM DATE: 07/15/2018 6:29 PM EDT AGE/SEX: 27 years / Female INDICATIONS: Left sided abdomen pain. Diagnosed with pyelonephritis last week. CLINICAL DATA: This is the patient's initial encounter. Patient reports that signs and symptoms have been present for 1 week and indicates a pain score of 5/10. MEDICAL/SURGICAL HISTORY: None. None. ORAL CONTRAST: No oral contrast ingested. RADIATION DOSE: 5.54 CTDI (mGy) COMPARISON: [facility] [place]BDOMEN W CONTRAST, 09/10/2017. . TECHNIQUE: Multiple contiguous axial images were obtained through the abdomen and pelvis following b olus infusion of 75 ml Omnipaque 350 (iohexol) nonionic water-soluble contrast as a single exam dos e. No oral contrast ingested. Using automated exposure control and adjustment of the mA and/or kV ac cording to patient size, radiation dose was kept as low as reasonably achievable to obtain optimal di agnostic quality images. DICOM format image data is available electronically for review and comparis on. FINDINGS: The lower lungs are clear. The liver and gallbladder unremarkable Spleen is prominent. The pancreas is unremarkable Right kidney is unremarkable There is a small apparent carbuncle on the left kidney measuring approximate 1.2 cm the complication of the pyelonephritis. Minimal perinephric fluid is present. There is no retroperitoneal adenopathy In the pelvis the bladder and adnexal regions are unremarkable Review of bone windows reveals mild degenerative changes about both SI joints. CONCLUSION: 1. Developing small apparent renal carbuncle on the left with perinephric stranding about the left k idney. 2. There is no obstruction. Electronically signed by: Gage Morel MD 07/15/2018 7:24 PM EDT
[2018-07-15] MEDS: Sod Chloride 0.9% Inj 1,000 ML IV.SIG SCH ×2 (19:28→20:56)
[2018-07-15 21:05] LABS: Bilirubin,Urine Negative (Negative); Clarity,Urine Clear (Clear); Color,Urine Straw (Yellw/Straw); Glucose,Urine (UA) Negative (Negative); Leukocyte Esterase,Urine Small (Negative); Mucus,Urine Few /lpf (Occasional); Nitrite,Urine Negative (Negative); Specific Gravity,Urine 1.021 (1.002-1.035); Squamous Epithelial Cell,Urine 3 /hpf (0-5)
[2018-07-15] MEDS ORDERED: Bisacodyl 10 MG Supp RECTAL PRN (22:01)
[2018-07-15] MEDS ORDERED: Acetaminophen 325 MG Tablet PO PRN (22:01)
[2018-07-15] MEDS: Morphine Sulfate Inj 2 MG/ML Vial IV.PUSH PRN (23:12)
[2018-07-15] MEDS: Sod Chloride 0.9% Inj 1,000 ML IV.CONT SCH (23:16)
--- NOTE | 2018-07-15 23:18 | P.HPIM ---
History of Present Illness Primary Care Physician: No Primary Care Physician History of Present Illness: This is a 27-year-old female with a PMH of IVDU who presented to the ER with complaints of abdominal pain [id number]. Seen at [facility] for similar symptoms, diagnosed w/ Pyelonephritis and prescribed Cipro, states she has been compliant w/ medications however notes no improvement in symptoms. Pain is mostly in left flank, constant, sharp, 10/10, non-radiating. +subjective fever/chills. On arrival, BP 109/69, HR 99, O2 sat 97% on RA, Temp 100.1. CBC unremarkable. INR 1.1. Chemistry unremarkable. UA positive for UTI. CT Abdomen/Pelvis developing left renal abscess with perinephric stranding. Dr. Stoll consulted , recommended for IR consult to drain abscess. S/p Rocephin IV in ER - Diagnosis (1) SIRS (systemic inflammatory response syndrome) (2) Pyelonephritis (3) Abscess of left kidney (4) IVDU (intravenous drug user) Inpatient Certification: I certify that the inpatient services were ordered in accordance with Medicare regulations governing the order. This includes certification that hospital inpatient services are reasonable and necessary and in the case of services not specified as inpatient-only under 42 CFR 419.22(n), that they are appropriately provided as inpatient services in accordance to with the 2-midnight benchmark under 43 CFR 412.3(e) Estimated Total Length of Stay (Days): 2 Plans for Post Hospital Care: Not yet determined Review of Systems PAST FAMILY HISTORY: Reviewed. No h/o DM or CAD All other systems reviewed negative except as stated in HPI PMFSH - History History Provided By: Patient - Tobacco History Second Hand Smoke Exposure: Yes Tobacco Use In Past 30 Days: Yes Smoking Status: Current every day smoker Tobacco Type: Cigarettes - Alcohol History How Often Do You Have a Drink Containing Alcohol: Never - Substance Use History Substance History: Active Abuse - Substance Use Type Opiates Status: Active Route Used: Intravenously Last Used: 07/14/18 Reason for Use: Calm Down - Travel History Recent Travel in the [place] Within the Last 8 Weeks: No Recent Travel Out of the Country Within the Last 8 Weeks: No - Immunization History Tetanus Immunization: Unsure Hx Influenza Vaccine This Season: No Medications and Allergies Active Medications: Active Medications Acetaminophen (Tylenol) 650 mg PO Q4H PRN PRN Reason: Temp > 100.4 Al Hydroxide/Mg Hydroxide (Milk Of Magnesia Liq) 30 ml PO Q12H PRN PRN Reason: Mild Constipation Bisacodyl (Dulcolax Supp) 10 mg RECTAL DAILY PRN PRN Reason: SEVERE CONSITIPATION Sodium Chloride (Ns Inj) 1,000 mls @ 0 mls/hr IV.SIG BOLUS DAVIDA Stop: 07/16/18 17:46 Last Infusion: 07/15/18 22:00 Dose: Infused Ceftriaxone Sodium 1,000 mg/ (Sodium Chloride) 100 mls @ 200 mls/hr IV.SIG Q24H DAVIDA Sodium Chloride (Ns Inj) 1,000 mls @ 100 mls/hr IV.CONT .Q10H DAVIDA Last Admin: 07/15/18 23:16 Dose: 100 mls/hr Lactulose (Lactulose Liq) 30 ml PO DAILY PRN PRN Reason: SEVERE CONSITIPATION Lorazepam (Ativan Inj) 1 mg IV.PUSH Q4H PRN PRN Reason: AGITATION/WITHDRAWAL Morphine Sulfate (Morphine Inj) 2 mg IV.PUSH Q4H PRN PRN Reason: PAIN 6-10 Last Admin: 07/15/18 23:12 Dose: 2 mg Ondansetron HCl (Zofran Inj) 4 mg IV.PUSH Q6H PRN PRN Reason: NAUSEA OR VOMITING Senna/Docusate Sodium (Mariluz-Colace) 1 tab PO BID DAVIDA Sennosides (Senokot) 17.2 mg PO Q12H PRN PRN Reason: Moderate Constipation Allergies Allergy/AdvReac Type Severity Reaction Status Date / Time promethazine Allergy Intermediate HALUCINATIO Verified 07/15/18 17:03 NS Home Medications Medication Instructions Recorded Confirmed Type No Known Home Medications 07/15/18 07/15/18 History Exam Vital signs: Vital Signs 07/15/18 16:29 07/15/18 17:30 07/15/18 22:42 Temperature 100.7 F H 100.1 F H Pulse Rate 114 H 99 H 85 Respiratory Rate 20 18 16 Blood Pressure 116/69 109/69 113/76 Pulse Oximetry 100 97 100 07/15/18 23:02 07/15/18 23:03 Temperature 98.4 F Pulse Rate 74 Respiratory Rate 18 Blood Pressure 115/66 Pulse Oximetry 98 100 Intake & Output 07/15/18 07/15/18 07/16/18 06:59 18:59 06:59 Intake Total 2099 Balance 2099 Weight 65.771 kg 69.7 kg Intake: IV 2099 NS Inj 1,000 ML @ Wide Open IV. 1999 SIG BOLUS DAVIDA Rx#:[id number] Rocephin Inj 1,000 MG In NS Inj 100 / 100 100 ML @ 200 mls/hr IV.SIG ONCE ONE Rx#:[id number] Other: Date of Last Bowel Movement 07/15/18 Weight On Admission 69.7 kg Narrative: PE: GENERAL: Young female in no acute distress. SKIN: Focused skin assessment warm and dry. HEENT: PERRLA, EOMI. No scleral icterus or conjunctival pallor. No lid lag or facial droop. CARDIOVASCULAR: Regular rate and rhythm. No obvious murmurs to auscultation. No chest tenderness to palpation. RESPIRATORY: No obvious rhonchi or wheezing. Clear to auscultation. Breath sounds equal bilaterally. GASTROINTESTINAL: Abdomen soft, left flank tenderness to palpation, nondistended. BS normal. MUSCULOSKELETAL: Extremities without clubbing, cyanosis, or edema. No obvious deformities. NEUROLOGICAL: Awake, alert and oriented x4. No focal neurologic deficits. Moving both upper and lower extremities spontaneously. PSYCHIATRIC: Appropriate mood and affect. Insight and judgment normal. Results - Labs CBC & Chem 7: 07/15/18 16:45 07/15/18 16:45 Labs: Short CBC 07/15/18 Range/Units 16:45 WBC 6.7 (4.0-11.0) th/mm3 Hgb 11.9 (11.6-15.3) gm/dL Hct 34.6 L (35.0-46.0) % Plt Count 180 (150-450) th/mm3 BMP 07/15/18 16:45 Sodium 134 L Potassium 3.7 Chloride 100 Carbon Dioxide 27.9 BUN 12 Creatinine 0.91 Calcium 8.5 Liver Function 07/15/18 Range/Units 16:45 Total Bilirubin 0.6 (0.2-1.0) mg/dL AST 16 (15-37) U/L ALT 24 (10-53) U/L Alkaline Phosphatase 108 (45-117) U/L Albumin 3.2 L (3.4-5.0) g/dL Urine 07/15/18 Range/Units 19:51 Urine Color Straw (Yellw/Straw) Urine Clarity Clear (Clear) Urine pH 6.0 (5.0-8.5) Ur Specific [place] 1.021 (1.002-1.035) Urine Protein Negative (Neg-Trace) mg/dL Urine Glucose (UA) Negative (Negative) mg/dL - Imaging Impressions Chest X-Ray 07/15/18 16:36 CONCLUSION: 1. No acute abnormality or significant interval change. Abdomen/Pelvis CT 07/15/18 18:14 CONCLUSION: 1. Developing small apparent renal carbuncle on the left with perinephric stranding about the left kidney. 2. There is no obstruction. Caprini VTE Risk Assessment Caprini VTE Risk Assessment: No/Low Risk (score <= 1) Caprini Risk Assessment Model: Point Value = 1 Point Value = 2 Point Value = 3 Point Value = 5 Age 41-60 Minor surgery BMI > 25 kg/m2 Swollen legs Varicose veins or History of unexplained or recurrent spontaneous Oral contraceptives or hormone replacement Sepsis (< 1 month) Serious lung disease, including pneumonia (< 1 month) Abnormal pulmonary function Acute myocardial infarction Congestive heart failure (< 1 month) History of inflammatory bowel disease Medical patient at bed rest Age 61-74 Arthroscopic surgery Major open surgery (> 45 min) Laparoscopic surgery (> 45 min) Malignancy Confined to bed (> 72 hours) Immobilizing plaster cast Central venous access Age >= 75 History of VTE Family history of VTE Factor V Leiden Prothrombin [id number] Lupus anticoagulant Anticardiolipin antibodies Elevated serum homocysteine Heparin-induced thrombocytopenia Other congenital or acquired thrombophilia Stroke (< 1 month) Elective arthroplasty Hip, pelvis, or leg fracture Acute spinal cord injury (< 1 month) Prophylaxis Regimen: Total Risk Factor Score Risk Level Prophylaxis Regimen 0-1 Low Early ambulation 2 Moderate Order ONE of the following: *Sequential Compression Device (SCD) *Heparin 5000 units SQ BID 3-4 Higher Order ONE of the following medications: *Heparin 5000 units SQ TID *Enoxaparin/Lovenox 40 mg SQ daily (WT < 150 kg, CrCl > 30 mL/min) *Enoxaparin/Lovenox 30 mg SQ daily (WT < 150 kg, CrCl > 10-29 mL/min) *Enoxaparin/Lovenox 30 mg SQ BID (WT < 150 kg, CrCl > 30 mL/min) AND/OR *Sequential Compression Device (SCD) 5 or more Highest Order ONE of the following medications: *Heparin 5000 units SQ TID (Preferred with Epidurals) *Enoxaparin/Lovenox 40 mg SQ daily (WT < 150 kg, CrCl > 30 mL/min) *Enoxaparin/Lovenox 30 mg SQ daily (WT < 150 kg, CrCl > 10-29 mL/min) *Enoxaparin/Lovenox 30 mg SQ BID (WT < 150 kg, CrCl > 30 mL/min) AND *Sequential Compression Device (SCD) Assessment and Plan - Assessment (1) SIRS (systemic inflammatory response syndrome) Code(s): R65.10 - Systemic inflammatory response syndrome (SIRS) of non- infectious origin without acute organ dysfunction Status: Acute (2) Pyelonephritis Code(s): N12 - Tubulo-interstitial nephritis, not specified as acute or chronic Status: Acute (3) Abscess of left kidney Code(s): N15.1 - Renal and perinephric abscess Status: Acute (4) IVDU (intravenous drug user) Code(s): F19.90 - Other psychoactive substance use, unspecified, uncomplicated Status: Acute - Plan A/P: 1. SIRS: Temp 100.1, HR 99, Source-UTI/Pyelonephritis, follow up cultures, continue IV Abx, IVF for hydration. 2. Pyelonephritis: w/ Failed outpatient tx, previously seen at [facility] for same, s/p Cipro, compliant w/ medications, now w/ ongoing symptoms. U/a positive for UTI, continue IV Rocephin, follow up cultures, IVF, monitor I/O. 3. Renal Abscess: CT Abd/Pelvis w/ developing left renal abscess and perinephric stranding, images reviewed, Dr. Stoll consulted by ER physician, recommendation for IR consult to drain abscess. Continue w/ IV abx as above. 4. IVDU: Ativan prn for withdrawal 5. DVT Prophylaxis: SCD/Teds 6. Social work for d/c planning as needed. 7. Case discussed w/ ER physician at length, labs/records/imaging reviewed by me H&P: Quality - VTE Deep Vein Thrombosis/Pulmonary Embolism Present on Admission: No
[2018-07-16] MEDS: Morphine Sulfate Inj 2 MG/ML Vial IV.PUSH PRN ×4 (03:58→18:27)
[2018-07-16 07:52] LABS: Baso % (Auto) 0.3 % (0.0-2.0); Eos % (Auto) 0.5 % (0.0-4.0); Hematocrit 34.2 % (35.0-46.0); Hemoglobin 11.7 gm/dL (11.6-15.3); Lymph # (Auto) 1.3 th/mm3 (1.0-4.8); Lymph % (Auto) 25.6 % (9.0-44.0); Mean Corpuscular HGB Conc 34.3 % (32.0-36.0); Mean Corpuscular Hemoglobin 31.8 pg (27.0-34.0); Mean Corpuscular Volume 92.8 fL (80.0-100.0); Mean Platelet Volume 7.7 fL (7.0-11.0); Mono # (Auto) 0.6 th/mm3 (0.0-0.9); Mono % (Auto) 11.3 % (0.0-8.0); Neut # (Auto) 3.2 th/mm3 (1.8-7.7); Neut % (Auto) 62.3 % (16.0-70.0); Platelet Count 187 th/mm3 (150-450); Red Blood Count 3.68 mil/mm3 (4.00-5.30); Red Cell Distribution Width 13.4 % (11.6-17.2); White Blood Count 5.2 th/mm3 (4.0-11.0)
[2018-07-16 08:09] LABS: Albumin 3.1 g/dL (3.4-5.0); Anion Gap 6 meq/L (5-15); Aspartate Aminotransferase 16 U/L (15-37); Blood Urea Nitrogen 8 mg/dL (7-18); Calcium 8.9 mg/dL (8.5-10.1); Carbon Dioxide 25.6 meq/L (21.0-32.0); Chloride 107 meq/L (98-107); Glomerular Filtration Rate Greater Than 89 mL/min (>89); Glucose,Random 107 mg/dL (74-106); Potassium 3.7 meq/L (3.5-5.1); Sodium 139 meq/L (136-145)
[2018-07-16 08:11] LABS: Alanine Aminotransferase 24 U/L (10-53); Alkaline Phosphatase 102 U/L (45-117); Total Protein 7.5 g/dL (6.4-8.2)
[2018-07-16 08:55] VITALS: RESP 18
[2018-07-16] MEDS ORDERED: Senna/Docusate Sodium 8.6/50 MG Tablet PO SCH (09:00)
[2018-07-16] MEDS: Sod Chloride 0.9% Inj 1,000 ML IV.CONT SCH ×2 (09:30→17:31)
--- NOTE | 2018-07-16 09:52 | P.PNIM ---
Subjective Interval history: Follow-up abdominal pain, flank pain, pyelonephritis and renal abscess, IVDU. Patient seen and evaluated laying in bed complains of pain of 5 out of 10 that is not getting better on her left lower abdomen and left lower back. Patient stated that morphine does not and discussed about weaning off opioids. Suggested Tylenol patient agreed. There is no association for nausea or vomiting. Patient was just in the bathroom for bowel movement. Patient denies any fever or chills, denies any diarrhea or constipation. Physical Exam Vital signs: Vital Signs 07/15/18 16:29 07/15/18 17:30 07/15/18 22:42 Temperature 100.7 F H 100.1 F H Pulse Rate 114 H 99 H 85 Respiratory Rate 20 18 16 Blood Pressure 116/69 109/69 113/76 Pulse Oximetry 100 97 100 07/15/18 23:02 07/15/18 23:03 07/16/18 00:00 Temperature 98.4 F Pulse Rate 74 60 Respiratory Rate 18 Blood Pressure 115/66 Pulse Oximetry 98 100 07/16/18 04:00 07/16/18 04:22 07/16/18 08:00 Temperature 99.0 F 97.4 F L Pulse Rate 69 74 Respiratory Rate 18 19 18 Blood Pressure 123/74 113/80 Pulse Oximetry 97 98 Intake & Output 07/15/18 07/16/18 07/16/18 18:59 06:59 18:59 Intake Total 2099 Balance 2099 Weight 65.771 kg 69.1 kg Intake: IV 2099 NS Inj 1,000 ML @ Wide Open IV. 1999 SIG BOLUS DAVIDA Rx#:[id number] Rocephin Inj 1,000 MG In NS Inj 100 / 100 100 ML @ 200 mls/hr IV.SIG ONCE ONE Rx#:[id number] Other: # Voids 1 Date of Last Bowel Movement 07/15/18 Weight On Admission 69.7 kg Narrative: GENERAL: Well-developed, well-nourished, young female in no apparent distress. SKIN: Warm and dry. Lower chin area redness and peeling HEAD: Atraumatic. Normocephalic. EYES: Pupils equal and round. No scleral icterus. No injection or drainage. ENT: No nasal bleeding or discharge. Mucous membranes pink and moist. NECK: Trachea midline. No JVD. CARDIOVASCULAR: Regular rate and rhythm. RESPIRATORY: No accessory muscle use. Clear to auscultation. Breath sounds equal bilaterally. GASTROINTESTINAL: Abdomen soft, with tender on palpation, nondistended. Hepatic and splenic margins not palpable. MUSCULOSKELETAL: Extremities without clubbing, cyanosis, or edema. No obvious deformities. NEUROLOGICAL: Awake and alert. No obvious cranial nerve deficits. Motor grossly within normal limits. Five out of 5 muscle strength in the arms and legs. Normal speech. PSYCHIATRIC: Appropriate mood and affect; insight and judgment normal. Results - Labs CBC & Chem 7: 07/16/18 06:09 07/16/18 06:09 Laboratory Results - last 24 hr 07/15/18 07/15/18 07/15/18 16:45 16:45 16:45 WBC 6.7 RBC 3.72 L Hgb 11.9 Hct 34.6 L MCV 92.9 MCH 31.9 MCHC 34.3 RDW 13.3 Plt Count 180 MPV 7.2 Neut % (Auto) 72.8 H Lymph % (Auto) 16.3 [place] % (Auto) 10.6 H Eos % (Auto) 0.1 Baso % (Auto) 0.2 Neut # (Auto) 4.8 Lymph # (Auto) 1.1 Stafford # (Auto) 0.7 Eos # (Auto) 0.0 Baso # (Auto) 0.0 WBC Differential . Differential Comment Auto diff final PT INR APTT Sodium 134 L Potassium 3.7 Chloride 100 Carbon Dioxide 27.9 Anion Gap 6 BUN 12 Creatinine 0.91 Estimated GFR 74 L Random Glucose 125 H Lactic Acid 0.9 Calcium 8.5 Total Bilirubin 0.6 AST 16 ALT 24 Alkaline Phosphatase 108 Total Protein 7.7 Albumin 3.2 L Beta HCG, Qual Urine Color Urine Clarity Urine pH Ur Specific [place] Urine Protein Urine Glucose (UA) Urine Ketones Urine Occult Blood Urine Nitrate Urine Bilirubin Urine Urobilinogen Ur Leukocyte Esterase Urine RBC Urine WBC Ur Squamous Epith Cells Urine Mucus Micro UA Comment Ur Microscopic Review Urine Culture Comments 07/15/18 07/15/18 07/15/18 16:45 17:36 19:51 WBC RBC Hgb Hct MCV MCH MCHC RDW Plt Count MPV Neut % (Auto) Lymph % (Auto) [place] % (Auto) Eos % (Auto) Baso % (Auto) Neut # (Auto) Lymph # (Auto) [place] # (Auto) Eos # (Auto) Baso # (Auto) WBC Differential Differential Comment PT 11.5 INR 1.1 APTT 28.9 Sodium Potassium Chloride Carbon Dioxide Anion Gap BUN Creatinine Estimated GFR Random Glucose Lactic Acid Calcium Total Bilirubin AST ALT Alkaline Phosphatase Total Protein Albumin Beta HCG, Qual Less than 1.0 Urine Color Straw Urine Clarity Clear Urine pH 6.0 Ur Specific [place] 1.021 Urine Protein Negative Urine Glucose (UA) Negative Urine Ketones Negative Urine Occult Blood Small H Urine Nitrate Negative Urine Bilirubin Negative Urine Urobilinogen Less than 2 Ur Leukocyte Esterase Small H Urine RBC 1 Urine WBC 13 H Ur Squamous Epith Cells 3 Urine Mucus Few H Micro UA Comment Culture indicated Ur Microscopic Review Not Reportable Urine Culture Comments Culture indicated 07/16/18 07/16/18 06:09 06:09 WBC 5.2 RBC 3.68 L Hgb 11.7 Hct 34.2 L MCV 92.8 MCH 31.8 MCHC 34.3 RDW 13.4 Plt Count 187 MPV 7.7 Neut % (Auto) 62.3 Lymph % (Auto) 25.6 [place] % (Auto) 11.3 H Eos % (Auto) 0.5 Baso % (Auto) 0.3 Neut # (Auto) 3.2 Lymph # (Auto) 1.3 [place] # (Auto) 0.6 Eos # (Auto) 0.0 Baso # (Auto) 0.0 WBC Differential . Differential Comment Auto diff final PT INR APTT Sodium 139 Potassium 3.7 Chloride 107 Carbon Dioxide 25.6 Anion Gap 6 BUN 8 Creatinine 0.61 Estimated GFR Greater than 89 Random Glucose 107 H Lactic Acid Calcium 8.9 Total Bilirubin 0.4 AST 16 ALT 24 Alkaline Phosphatase 102 Total Protein 7.5 Albumin 3.1 L Beta HCG, Qual Urine Color Urine Clarity Urine pH Ur Specific [place] Urine Protein Urine Glucose (UA) Urine Ketones Urine Occult Blood Urine Nitrate Urine Bilirubin Urine Urobilinogen Ur Leukocyte Esterase Urine RBC Urine WBC Ur Squamous Epith Cells Urine Mucus Micro UA Comment Ur Microscopic Review Urine Culture Comments - Imaging Impressions Chest X-Ray 07/15/18 16:36 CONCLUSION: 1. No acute abnormality or significant interval change. Abdomen/Pelvis CT 07/15/18 18:14 CONCLUSION: 1. Developing small apparent renal carbuncle on the left with perinephric stranding about the left kidney. 2. There is no obstruction. Assessment and Plan - Assessment (1) SIRS (systemic inflammatory response syndrome) Code(s): R65.10 - Systemic inflammatory response syndrome (SIRS) of non- infectious origin without acute organ dysfunction Status: Acute (2) Pyelonephritis Code(s): N12 - Tubulo-interstitial nephritis, not specified as acute or chronic Status: Acute (3) Abscess of left kidney Code(s): N15.1 - Renal and perinephric abscess Status: Acute (4) IVDU (intravenous drug user) Code(s): F19.90 - Other psychoactive substance use, unspecified, uncomplicated Status: Acute - Plan This is a 27-year-old female with a PMH of IVDU who presented to the ER with complaints of abdominal pain [id number]. Seen at [facility] for similar symptoms, diagnosed w/ Pyelonephritis and prescribed Cipro, states she has been compliant w/ medications however notes no improvement in symptoms. SIRS: -improving Temp 97.4 , HR 74, -Source-UTI/Pyelonephritis - follow up cultures - continue IV Abx, IVF for hydration. Pyelonephritis/abdominal pain/low back pain - w/ Failed outpatient tx, previously seen at [facility] for same s/p Cipro, compliant w/ medications, now w/ ongoing symptoms. - U/a positive for UTI, continue IV Rocephin, follow up cultures, IVF, monitor I/O. - prn tylenol Renal Abscess -CT Abd/Pelvis w/ developing left renal abscess and perinephric stranding, images reviewed, Dr. Stoll consulted by ER physician, recommendation for IR consult to drain abscess. -Continue w/ IV abx -consulted interventional radiology for possible drainage of the abscess IVDU - Ativan prn for withdrawal DVT Prophylaxis: SCD/Teds, increase ambulation Code Status: Full code Discussed Condition With: Patient and nurse
[2018-07-16 13:34] VITALS: O2SAT 99
--- NOTE | 2018-07-16 13:41 | ECG ---
Date Performed: 07/15/2018 Time Performed: 17:09:04 PTAGE: 27 years EKG: Sinus rhythm POSSIBLE LEFT ATRIAL ENLARGEMENT INCOMPLETE RIGHT BUNDLE BRANCH BLOCK BORDERLINE ECG INTERPRETATION BASED ON A DEFAULT AGE OF 39 YEARS PREVIOUS TRACING : 08/16/2011 20.51 Since the previous tracing, no significant change not ed DOCTOR: Aaron Silverman Interpretating Date/Time 07/16/2018 13:40:24
[2018-07-16 16:45] VITALS: BP 111/80; PULSE 80; TEMP 97.8
--- NOTE | 2018-07-16 20:41 | P.PNADD ---
Addendum to Inpatient Note Reason for Addendum: Additional Documentation Additional information: Nursing called to notify me that patient eloped at shift change. AMA discharge order placed.
== END 2018-07-16 20:44 | disposition left against medical advice (07) ==
LOC: NEPD 16:11 → NEDA 22:03 → N05 23:07
PROVIDERS: ADMIT Hospitalist; ATTEND Hospitalist